=== PATIENT | female | born 1945 | race Caucasian/White ===

== ENCOUNTER → 2017-04-22 | Outpatient (CLI) | payer MEDICARE, BC ==
[2017-04-22 10:55] LABS: Appearance,Urine Clear (Clear); Bacteria,Urine Rare /hpf; Bilirubin,Urine Negative (Negative); Blood,Urine Trace (Negative); Color,Urine Light Yellow; Glucose,Urine (UA) Negative (Negative); Ketones,Urine Negative (Negative); Leukocyte Esterase,Urine Negative (Negative); Mucus,Urine Rare /hpf; Protein,Urine Negative (Negative); RBC,Urine 1 /hpf (0-5); Specific Gravity,Urine 1.005 (1.001-1.035); Urobilinogen,Urine <2.0 mg/dL (<2.0); WBC,Urine <1 /hpf (0-5)
[2017-04-22 11:46] LABS: HCT 36.3 % (34.0-46.0); HGB 11.7 gm/dL (11.4-16.0); MCH 32.4 pg (25.0-35.0); MCHC 32.1 g/dL (31.0-37.0); Macrocytosis Slight; Mean Platelet Volume 7.2; Platelet Count 264 k/uL (150-450); RDW 13.8 % (11.5-15.5); WBC 6.9 k/uL (3.8-10.6)
[2017-04-22 11:53] LABS: Partial Thromboplastin Time 25.6 sec (22.0-30.0)
[2017-04-22 12:20] LABS: ALT 19 U/L (9-52); AST 22 U/L (14-36); Albumin 4.1 g/dL (3.5-5.0); Alkaline Phosphatase 41 U/L (38-126); Anion Gap 9 mmol/L; Blood Urea Nitrogen 16 mg/dL (7-17); Carbon Dioxide 30 mmol/L (22-30); Chloride 102 mmol/L (98-107); Glucose 84 mg/dL (74-99); Sodium 141 mmol/L (137-145); Total Bilirubin 0.5 mg/dL (0.2-1.3); Total Protein 7.1 g/dL (6.3-8.2)
== END | disposition home or self-care (01) ==
LOC: LABPAT 10:06
PROVIDERS: ATTEND Orthopaedic Surgery
DX: Z01.812 Encounter for preprocedural laboratory examination (principal); Z79.01 Long term (current) use of anticoagulants
CPT/HCPCS: 80053; 81001; 85027; 85610; 85730; 87070

== ENCOUNTER 2017-05-09 05:46 | Inpatient (IN) | payer MEDICARE, BC ==
[2017-04-29 08:47] VITALS: BMI 23.1
[~2017-05-09 05:46] MED LIST: ACETAMINOPHEN TAB 500 MG TAB PO ONE; DEXAMETHASONE SOD PHOSPHATE 10 MG/ML 1 ML VIAL IV ONE; HYDROmorphone 0.5 MG/0.5 ML SYRINGE IVP PRN; LACTATED RINGERS 1,000 ML IV SCH; MELOXICAM 7.5 MG TAB PO ONE; MIDAZOLAM 2 MG/2 ML VIAL IV PRN; ONDANSETRON 4 MG/2 ML VIAL IVP ONE; ROPIVACAINE 246.25 MG, EPINEPHrine 0.5 MG, KETOROLAC 30 MG, cloNIDine HCL/PF 80 MCG, WA... MISCELLANE ONE; TRANEXAMIC ACID 1,000 MG in SODIUM CHLORIDE 0.9% 50 ML IVPB ONE; ceFAZolin IN SWFI 2 GM/20 ML SYRINGE IVP ONE
[2017-05-09] MEDS ORDERED: LIDOCAINE 1% 20 ML VIAL (10MG/ML) FOR IV START INTRADERMA ONE (07:01)
[2017-05-09] MEDS ORDERED: fentaNYL (PF) 50 MCG/ML 2 ML AMP ONE ×2 (07:03→07:30)
[2017-05-09] MEDS ORDERED: MAGNESIUM HYDROXIDE 2,400 MG/10 ML CUP PO PRN (07:28)
[2017-05-09] MEDS ORDERED: BISACODYL 10 MG SUPP RECTAL PRN (07:28)
[2017-05-09] MEDS ORDERED: NALOXONE 0.4 MG/ML 1 ML VIAL IV PRN (07:28)
[2017-05-09] MEDS ORDERED: ONDANSETRON 4 MG/2 ML VIAL IVP PRN (07:28)
[2017-05-09] MEDS ORDERED: HYDROmorphone 1 MG/ML 1 ML SYRINGE IVP PRN (07:28)
[2017-05-09] MEDS ORDERED: HYDROcodone/APAP 7.5-325MG 1 EACH TAB PO PRN (07:28)
[2017-05-09] MEDS ORDERED: HYDROmorphone 0.5 MG/0.5 ML SYRINGE IVP PRN ×3 (07:28)
[2017-05-09] MEDS ORDERED: NA PHOS,M-B/NA PHOS,DI-BA 133 ML ENEMA RECTAL PRN (07:28)
[2017-05-09] MEDS ORDERED: DIAZEPAM 5 MG TAB PO PRN ×2 (07:28)
[2017-05-09] MEDS ORDERED: LIDOCAINE 1% INJ 10MG/ML (20 ML MDV) ONE (07:30)
[2017-05-09] MEDS ORDERED: SODIUM CHLORIDE 0.9% 100 ML BAG ONE (07:30)
[2017-05-09] MEDS ORDERED: TRANEXAMIC ACID 1,000 MG/10 ML VIAL ONE (07:30)
[2017-05-09] MEDS ORDERED: PROPOFOL 10 MG/ML 20 ML VIAL IV ONE (07:30)
[2017-05-09] MEDS ORDERED: MIDAZOLAM 2 MG/2 ML VIAL ONE (07:30)
[2017-05-09] MEDS ORDERED: ROPIVACAINE 1,100 MG, SODIUM CHLORIDE 0.9% 330 ML MISCELLANE PRN ×2 (07:54)
--- NOTE | 2017-05-09 07:59 | P.ONQ ---
Anesthesiology Proc Note - PNB - Peripheral Nerve Block Performed Right Adductor Canal Infusion Time Out Performed: Yes Procedure Start Time: 07:09 Indication: Acute Post-Operative Pain, Analgesia Specifically requested for management of pain by DrMaxi: Rick Umana Sedation Type: Sedate with meaningful contact maintained Preparation: Sterile Prep Position: Supine Catheter Depth at Skin (cm): 5 Catheter: Indwelling Needle Types: Other (see comment) (Pajunk) Needle Size: 100mm (4") Needle Gauge: 18 Technique: Ultrasound Injectate: 0.5% Ropivacaine (see comment for volume) (20cc) Blood Aspirated: Yes Pain Paresthesia on Injection Noted: No Resistance on Injection: Normal Events: Other (see comment) (Blood aspirated on initial injection attempt. Catheter repositioned and subsequent injection of ropivicaine was uneventful.)
[2017-05-09] MEDS ORDERED: ceFAZolin 3,000 MG in SODIUM CHLORIDE 0.9% IRRIGATIO 3,000 ML IRRIGATION ONE (08:04)
--- NOTE | 2017-05-09 08:59 | P.OP ---
Date of Procedure: 05/09/17 Preoperative Diagnosis: Severe osteoarthritis right knee Postoperative Diagnosis: Severe osteoarthritis right knee Procedure(s) Performed: Right total knee arthroplasty Implants: [employer]owitz [employer]hew Oxinium femoral component size 5, right Horowitz [employer] Nephew Zo II right nonporous tibial baseplate size 4 Horowitz [employer] Nephew size 13 mm Legion XLPE dished articular insert, size 3-4 Horowitz [employer] Nephew Zo II resurfacing patellar component, 29 mm All components were cemented using Jose Armando bone cement.. The articulation is Oxinium on polyethylene. Anesthesia: spinal Surgeon: Rick Umana Jewelry Drilling Machine Operator #1: Brittni Chao Estimated Blood Loss (ml): 50 Pathology: other (Bone and cartilage) Condition: stable Disposition: PACU Indications for Procedure: After failure of conservative treatment we discussed the surgical and nonsurgical treatment options at length. Patient wishes to proceed with a total knee arthroplasty. Complications specific to this procedure were discussed at length, including but not limited to infection, bleeding, stiffness , and nerve injury. Patient is aware of all these complications and informed consent was obtained Operative Findings: The operative findings are consistent with severe osteoarthritis of the right knee Description of Procedure: Patient was seen in the preoperative area consent was reviewed and operative site was marked with a skin marker. An adductor canal pain catheter was placed by anesthesia in the preoperative area. Patient was then brought to the operating room and given preoperative antibiotics intravenously. A spinal anesthetic was administered by the anesthesia department. A tourniquet was placed on the upper thigh and the lower extremity was prepped and draped in usual sterile fashion. A gram of transexamic acid was given. A universal timeout was then performed which confirmed the patient's name, surgical site, ALLERGIES, and consent. The lower extremity was then exsanguinated and tourniquet was inflated to 250 mmHg. A standard and anterior midline approach to the knee was performed. The skin and subcutaneous tissue was dissected down to the patellar tendon. A medial parapatellar arthrotomy was then performed. The knee was then extended, the patellar was everted, and the knee was again flexed. Anterior horns of both menisci were excised, and a release was performed to the posterior medial aspect of the knee. On gross visual inspection, there was complete loss of articular cartilage in the medial and patellofemoral joint spaces. There was also significant cartilage damage in the lateral compartment. There were multiple periarticular osteophytes which were then removed with a Ronguer. The femoral canal was then opened with the appropriate drill, and the intramedullary femoral cutting guide was then placed and set for 4 of valgus. The distal femoral cutting block was then pinned in place, and the distal femur was then cut. The cutting block was then removed and the cut was checked for flatness. Next, the sizing guide was then placed and set for 3 external rotation based off of the epicondylar axis and Whitesides line. After the femur was sized, the appropriate 4-in-1 cutting block was then pinned in place. The anterior condyles were cut without notching. The posterior and chamfer cuts were performed while protecting the collateral ligaments. The cutting block was then removed, and the femoral canal was plugged with autologous bone. Attention was then directed to the tibia. The remaining ACL was removed with a Ronguer, and the tibia was then gently subluxed forward with a large bent knee retractor. Any remaining menisci was excised. The posterior lateral corner was cauterized in order to cauterize the lateral geniculate artery. The extra medullary tibial cutting guide was then placed, set for the appropriate rotation , slope, and depth of resection. The proximal tibia cutting guide was then pinned in place. Proximal tibia was then cut and sized. Next trials were then placed with the appropriate-sized insert. The knee was able to fully extend and flex to 130 and was stable throughout all range of motion. The knee was then extended, patella everted. Patella was then measured, and then using an osteotomy guide, the patella was cut at the appropriate level. The patella was then measured and drilled and the patella trial was then placed. The knee was then taken through range of motion with the patella trial and the patella tracked normally. The knee was then extended patella trial was then removed and the patella was everted. Knee was then flexed and lug holes were drilled through the femoral trial and the femoral trial was then removed. The tibial was then exposed, and the tibial broach guide was then pinned in place after it was set for the appropriate rotation to allow for the most coverage without overhang. The tibia was then reamed and broached. The cut surfaces of bone were then irrigated with pulsatile lavage. The posterior structures were injected with the ropivacaine solution. The knee was also irrigated with Irrisept solution. The components were then opened, the cement was mixed, and the components were then cemented in place. The cement was allowed to harden with the knee in full extension. While the cement was hardening, the remaining soft tissues were then injected with a ropivacaine solution, which consisted of 246.25 mg of ropivacaine, 0.5 mg of epinephrine, 30 mg of Toradol, 80 g of clonidine, and 48.45 mL of sterile water, for a total of 100 mL of fluid injected. After the cemented hardened. The tourniquet was released, and hemostasis was obtained. A second gram of transexamic acid was given. The knee was again irrigated. The knee was again taken through range of motion and found to be stable throughout all range of motion of 0-130 , and the patella tracked normally. The fascia was then closed with #2 strata fix suture. The subcutaneous tissue was closed with 3-0 Vicryl and 3-0 strata fix. Dermabond glue was used for the skin and placed with the knee in flexion. The patient was placed in a sterile silver dressing. Patient was then transferred to recovery room in stable condition. The hotel assistant manager MAGGIE Fernandez was required due the complexity surgery and the need for a skilled surgical clinical reviewer. She assisted in positioning, draping, retraction, and closure of the wound.
[2017-05-09] MEDS ORDERED: LACTATED RINGERS 1,000 ML IV ONE (09:16)
[2017-05-09] MEDS ORDERED: fentaNYL (PF) 50 MCG/ML 2 ML AMP IVP ONE (09:49)
--- NOTE | 2017-05-09 09:50 | XR ---
EXAMINATION TYPE: XR knee limited RT DATE OF EXAM: 05/09/2017 COMPARISON: 11/03/2015 HISTORY: 71-year-old female evaluation for postoperative abnormality and alignment TECHNIQUE: 2 views FINDINGS: Images show placement of right total knee arthroplasty. 2 distal femoral and proximal tibial componen ts of the prosthesis appear well seated without periprosthetic fracture. Alignment grossly anatomic. Anterior soft tissue swelling with soft tissue air, intra-articular air, a joint effusion. IMPRESSION: Uncomplicated postoperative appearance right total knee arthroplasty.
[2017-05-09] MEDS ORDERED: SUMAtriptan SUCCINATE 25 MG TAB PO PRN (11:34)
--- NOTE | 2017-05-09 11:45 | P.CONS ---
History of Present Illness - Reason for Consult Consult date: 05/09/17 rheumatoid arthritis Requesting physician: Rick Umana - Chief Complaint knee pain - History of Present Illness Patient is a 71-year-old female with a past medical history of osteoarthritis, rheumatoid arthritis, and fibromyalgia who presented for an elective right total knee arthroplasty. She underwent procedure on the morning of 05/09 Dr. Umana. She had no immediate postoperative complications. She states that she has been suffering with arthritis for years. She has tried conservative therapy with injections. She has also takes methotrexate for her rheumatoid arthritis. She was no longer able to walk greater than 10 feet without significant pain so she decided to proceed with total knee arthroplasty. She stopped her methotrexate 2 weeks ago. She's had no recent cough, cold, fevers, or flus. She does take Requip at night for restless leg syndrome. She is on otherwise been in her normal state of health. She denies any postoperative nausea, vomiting, chest pain, shortness of breath, or syncope. She does feel that off after surgery. She plans on going home with home health therapy. Review of Systems General: no fever/chills, no rigors, no weight loss/weight gain, no unusual fatigue Eyes: no noticeable visual changes, no loss of vision ENT: no rhinorrhea, no congestion, no sore throat Cardiovascular: no chest pain, no palpitations, no preyncope/syncope, no edema Pulmonary: no shortness of breath, no wheezing, no cough Abdominal: no abdominal pain, no constipation, no diarrhea, no vomiting, no nausea Genitourinary: no dysuria, no urinary frequency, no unusual discharge/odor Neuro: no unusual paresthesias, no unusual paresis/paralysis, no headache Dermatologic: no unusual rashes, no unusual lesions, no unusual changes in nails Hematologic: no hemoptysis, no hematuria, no melena/hematochezia Psychiatric: no changes in mood or behaviors, no changes in sleep pattern Musculoskeletal: +knee pain Past Medical History Past Medical History: Fibromyalgia, Osteoarthritis (OA), Rheumatoid Arthritis ( RA) Additional Past Medical History / Comment(s): migraines, varicose veins, Restless leg syndrome History of Any Multi-Drug Resistant Organisms: None Reported Past Surgical History: Appendectomy, Back Surgery, Section, Cholecystectomy, Hysterectomy, Joint Replacement Additional Past Surgical History / Comment(s): left hip replacement, laminectomy , Right salivary gland removed, Past Anesthesia/Blood Transfusion Reactions: No Reported Reaction Smoking Status: Never smoker Past Alcohol Use History: None Reported Additional History: Lives with and son, no assistive devices. - Past Family History Mother Family Medical History: No Reported History Additional Family Medical History / Comment(s): denies and family history of heart attack or smoke Medications and Allergies Home Medications Medication Instructions Recorded Confirmed Type Methotrexate Sodium [Methotrexate] 20 mg PO FR 11/03/15 05/09/17 History Estradiol [Estrace] 1 mg PO MOWEFR 04/29/17 05/09/17 History Folic Acid 1 mg PO DAILY 04/29/17 05/09/17 History Hydrocodone/Acetaminophen [[place] 1 tab PO TID PRN 04/29/17 05/09/17 History 10-325] SUMAtriptan SUCCINATE [Imitrex] 25 mg PO BID PRN 04/29/17 05/09/17 History rOPINIRole HCL [Requip] 0.5 mg PO HS 04/29/17 05/09/17 History Allergies Allergy/AdvReac Type Severity Reaction Status Date / Time Sulfa (Sulfonamide Allergy Rash/Hives Verified 05/09/17 11:07 Antibiotics) codeine AdvReac Nausea & Verified 05/09/17 11:07 Vomiting morphine AdvReac Nausea & Verified 05/09/17 11:07 Vomiting Physical Exam Osteopathic Statement: *. No significant issues noted on an osteopathic structural exam other than those noted in the History and Physical/Consult. Vitals: Vital Signs Temp Pulse Resp BP Pulse Ox 05/09/17 10:01 63 14 128/65 100 05/09/17 09:46 63 14 151/63 98 05/09/17 09:31 73 16 127/70 100 05/09/17 09:16 97.0 F L 76 16 118/56 98 05/09/17 07:25 83 16 167/71 99 05/09/17 06:24 97.9 F 73 16 172/73 99 Intake and Output 05/08/17 05/09/17 05/09/17 22:59 06:59 14:59 Intake Total 1151 Output Total 50 Balance 1101 Intake: IV 1151 Output: Estimated Blood Loss 50 General: non toxic, no distress, appears at stated age, normal weight Derm: no unusual rashes/lesions no unusual ecchymoses, warm, dry Head: atraumatic, normocephalic, symmetric Eyes: EOMI, no lid lag, anicteric sclera, pupils equal round reactive to light ENT: Nose and ears atraumatic, no thrush, no pharyngeal erythema Neck: No thyromegaly, no cervical lymphadenopathy, trachea midline, supple Mouth: no lip lesion, mucus membranes moist Cardiovascular: S1S2 reg, no murmur, positive posterior tibial pulse bilateral, no edema, capillary refill less than 2 seconds Lungs: CTA bilateral, no rhonchi, no rales , no accessory muscle use Abdominal: soft, nontender to palpation, no guarding, no appreciable organomegaly, normal bowel sounds Ext: no gross muscle atrophy, muscle strength 5 out of 5 in upper extremities 4 extremities grossly, no contractures, Neuro: CN II-XI grossly intact, light touch intact all 4 extremities, finger to nose within normal limits, Psych: Alert, oriented, appropriate affect Results Labs: Preoperative labs reviewed from 04/22/17. Hemoglobin was 11.7. Hematocrit 36.3. Sodium 141. BUN 16. Creatinine 0.8. AST 22. ALT 19. Assessment and Plan Assessment: S/P R TKA - Pain control and DVT prophylaxis per otho - will check BMP in AM with multiple meds and K+ 5 on outpatient lab - follow-up CBC in AM hx of blood transfusion with ALEXANDER in the past, may have stunted bone marrow response due to custodial methotrexate. if HgB low post op will start oral iron therapy. - plans on home with home health Osteo-and rheumatoid arthritis -Has been off methotrexate for approximately 2 weeks and folic acid -Pain management with [place], and Mobic Restless leg syndrome - Resume requip Migrane headache - Imitrex as needed Fibromyalgia - pain control - maintain mobility as able Thank you for Allowing us to participate in the care of this pleasant patient. Please do not hesitate to contact us with questions. 7am-7pm [phone] and 7pm-7am [phone]
[2017-05-09] MEDS: MELOXICAM 7.5 MG TAB PO SCH (11:46)
[2017-05-09] MEDS: HYDROcodone/APAP 7.5-325MG 1 EACH TAB PO PRN ×2 (11:49→17:02)
[2017-05-09] MEDS: SODIUM CHLORIDE 0.9% 1,000 ML IV SCH (11:49)
[2017-05-09] MEDS: hydrOXYzine PAMOATE 25 MG CAP PO PRN ×2 (11:52→17:03)
[2017-05-09] MEDS: ceFAZolin IN SWFI 2 GM/20 ML SYRINGE IVP SCH (16:52)
[2017-05-09] MEDS ORDERED: SENNOSIDES-DOCUSATE SODIUM 1 EACH TAB PO SCH (21:00)
[2017-05-09] MEDS: ASPIRIN 325 MG TAB PO SCH (22:03)
[2017-05-10] MEDS: HYDROcodone/APAP 7.5-325MG 1 EACH TAB PO PRN ×2 (00:50→06:16)
[2017-05-10] MEDS: ceFAZolin IN SWFI 2 GM/20 ML SYRINGE IVP SCH (00:52)
[2017-05-10] MEDS: SODIUM CHLORIDE 0.9% 1,000 ML IV SCH ×2 (00:53→10:43)
[2017-05-10 02:10] VITALS: PULSE 77
[2017-05-10] MEDS: hydrOXYzine PAMOATE 25 MG CAP PO PRN (06:16)
[2017-05-10 07:20] VITALS: BP 110/57; RESP 16; TEMP 97.4
[2017-05-10 08:16] LABS: Anion Gap 7 mmol/L; Blood Urea Nitrogen 12 mg/dL (7-17); Calcium 8.5 mg/dL (8.4-10.2); Carbon Dioxide 25 mmol/L (22-30); Chloride 107 mmol/L (98-107); Glucose 107 mg/dL (74-99); Potassium 3.9 mmol/L (3.5-5.1); Sodium 139 mmol/L (137-145)
[2017-05-10 08:45] LABS: Basophils % (A) 0 %; Eosinophils % (A) 1 %; HCT 29.8 % (34.0-46.0); Lymphocytes # (A) 1.2 k/uL (1.0-4.8); Lymphocytes % (A) 14 %; MCH 30.8 pg (25.0-35.0); MCHC 31.5 g/dL (31.0-37.0); MCV 97.9 fL (80.0-100.0); Mean Platelet Volume 7.8; Monocytes # (A) 0.6 k/uL (0-1.0); Monocytes % (A) 7 %; Neutrophils # (A) 6.1 k/uL (1.3-7.7); Neutrophils % (A) 76 %; Platelet Count 210 k/uL (150-450); RBC 3.04 m/uL (3.80-5.40); RDW 13.8 % (11.5-15.5); WBC 7.9 k/uL (3.8-10.6)
[2017-05-10 09:09] LABS: HGB 9.4 gm/dL (11.4-16.0)
[2017-05-10] MEDS: ASPIRIN 325 MG TAB PO SCH (09:22)
[2017-05-10] MEDS: MELOXICAM 7.5 MG TAB PO SCH (09:22)
--- NOTE | 2017-05-10 09:30 | P.DS ---
Providers Date of admission: 05/09/17 05:46 Expected date of discharge: 05/10/17 Attending physician: Rick Umana Consults: 05/09/17 07:28 Consult Physician Routine Consulting Provider: Wendy Stuart Consult Reason/Comments: medical management Do you want consulting provider notified?: Yes Primary care physician: Lorenzo Aguiar - Discharge Diagnosis(es) (1) Primary osteoarthritis of right knee Current Visit: Yes Status: Acute (2) S/P total knee arthroplasty Current Visit: Yes Status: Acute Hospital Course: This is a 71-year-old female with known history of degenerative arthritis of the right knee. The patient presents for evaluation. After discussion and consideration patient elects to proceed with total knee arthroplasty. The patient is seen preoperatively by Dr. Umana and medically cleared for surgery by their primary care physician. Patient is admitted to [facility] on 05/09/2017 for total knee arthroplasty. The procedures performed without complication or sequelae. The patient is doing well postoperatively. Labs and vital signs are stable on day of discharge. On day of discharge patient's knee incision is healing well. There is minimal erythema. There is minimal drainage noted at this time. There is minimal soft tissue swelling to the knee. Patient has full foot and ankle motion without difficulty or pain. Neurovascular status to the right lower extremity is intact. Patient is discharged home in good condition. Please see med rec for accurate list of home medications. Plan - Discharge Summary Discharge Rx Participant: No New Discharge Prescriptions: New Aspirin 325 mg PO BID #60 tab HYDROcodone/APAP 7.5-325MG [[place] 7.5-325] 1 - 2 tab PO Q4-6H PRN #60 tab PRN Reason: Pain Sennosides [Senokot] 1 tab PO BID #60 tablet No Action Methotrexate Sodium [Methotrexate] 20 mg PO FR rOPINIRole HCL [Requip] 0.5 mg PO HS SUMAtriptan SUCCINATE [Imitrex] 25 mg PO BID PRN PRN Reason: migraines Folic Acid 1 mg PO DAILY Estradiol [Estrace] 1 mg PO MOWE Hydrocodone/Acetaminophen [[place] 10-325] 1 tab PO TID PRN PRN Reason: Pain Discharge Medication List Methotrexate Sodium [Methotrexate] 20 mg PO FR 11/03/15 [History] Estradiol [Estrace] 1 mg PO MOWEFR 04/29/17 [History] Folic Acid 1 mg PO DAILY 04/29/17 [History] Hydrocodone/Acetaminophen [[place] 10-325] 1 tab PO TID PRN 04/29/17 [History] SUMAtriptan SUCCINATE [Imitrex] 25 mg PO BID PRN 04/29/17 [History] rOPINIRole HCL [Requip] 0.5 mg PO HS 04/29/17 [History] Aspirin 325 mg PO BID #60 tab 05/10/17 [Rx] HYDROcodone/APAP 7.5-325MG [[place] 7.5-325] 1 - 2 tab PO Q4-6H PRN #60 tab [Rx] Sennosides [Senokot] 1 tab PO BID #60 tablet 05/10/17 [Rx] Follow up Appointment(s)/Referral(s): Rick Umana DO [Doctor of Osteopathic Medicine] - 2 Weeks Ambulatory/Diagnostic Orders: Continuous Passive Motion (CPM) Machine [DME.AMB1] Time Frame: 3 Weeks, Location : Determined By Patient Activity/Diet/Wound Care/Special Instructions: Weightbearing as tolerated with a walker CPM 5-6h daily Leave dressing intact. May be removed by home care nurse in 10-14 days. May shower with dressing on. [facility] with questions or concerns [phone] Discharge Disposition: HOME WITH HOME HEALTH SERVICES
[2017-05-10] MEDS ORDERED: HYDROcodone/APAP 10-325MG 1 EACH TAB PO PRN ×2 (09:33)
--- NOTE | 2017-05-10 11:02 | P.PN ---
Subjective Progress Note Date: 05/10/17 (delayed charting patient seen at 0900) Principal diagnosis: Patient is a 71-year-old female with a past medical history of osteoarthritis, rheumatoid arthritis, and fibromyalgia who presented for an elective right total knee arthroplasty. She underwent procedure on the morning of 05/09 Dr. Umana. She had no immediate postoperative complications. Patient seen and examined at bedside. She denies chest pain, SOB, nausea, or vomiting. States that medications are working well. Excited to go home. No other complaints currently. Follows with Dr. Aguiar. Objective - Vital Signs Vital signs: Vital Signs Temp 97.4 F L 05/10/17 07:20 Pulse 77 05/10/17 07:20 Resp 16 05/10/17 07:21 BP 110/57 05/10/17 07:20 Pulse Ox 97 05/10/17 07:20 Intake & Output 05/09/17 05/10/17 05/10/17 18:59 06:59 18:59 Intake Total 1911 180 Output Total 50 Balance 1861 180 Weight 61.235 kg Intake: IV 1151 Intake, IV Titration 260 Amount Sodium Chloride 0.9% 1, 260 000 ml @ 65 mls/hr IV . [id number] BOOKER Rx#:[id number] Oral 500 180 Output: Estimated Blood Loss 50 Other: Voiding Method Toilet # Voids 1 1 - Exam General: non toxic, mild distress due to pain, appears at stated age Derm: warm, dry Head: atraumatic, normocephalic, symmetric Eyes: EOMI, no lid lag, anicteric sclera Mouth: no lip lesion, mucus membranes moist Cardiovascular: S1S2 reg, no murmur, positive posterior tibial pulse bilateral, Lungs: CTA bilateral, no rhonchi, no rales , no accessory muscle use Abdominal: soft, nontender to palpation, no guarding, no appreciable organomegaly Psych: Alert, oriented, appropriate affect - Labs CBC & Chem 7: 05/10/17 07:29 05/10/17 07:29 Labs: Abnormal Lab Results - Last 24 Hours (Table) 05/10/17 05/10/17 Range/Units 07:29 07:29 RBC 3.04 L (3.80-5.40) m/uL Hgb 9.4 L D (11.4-16.0) gm/dL Hct 29.8 L (34.0-46.0) % Glucose 107 H (74-99) mg/dL Assessment and Plan Assessment: Anticipated acute blood loss anemia - Ferrous sulfate for 30 days - follow-up CBC when seen by Dr. Aguiar S/P R TKA - Pain control and DVT prophylaxis per otho Osteo-and rheumatoid arthritis -Has been off methotrexate for approximately 2 weeks and folic acid -Pain management with [place], and Mobic Restless leg syndrome - Resume requip Migrane headache - Imitrex as needed Fibromyalgia - pain control - maintain mobility as able Thank you for Allowing us to participate in the care of this pleasant patient. Please do not hesitate to contact us with questions. 7am-7pm [phone] and 7pm-7am [phone]
--- NOTE | 2017-05-10 13:23 | P.PN ---
Progress Note - Text 05/10 71-year-old female status post total knee replacement. Postop day 1 patient seen and evaluated for pain control, On-Q pump solution running at 8 mL an hour. VAS of 4 patient looked very comfortable. Plan to continue On-Q pump infusion
== END 2017-05-10 14:20 | disposition home health service (06) | DRG 470 ==
LOC: 2ORMAIN 05:46 → 3SUR 10:56
PROVIDERS: ADMIT Orthopaedic Surgery; ATTEND Orthopaedic Surgery
PROC: 0SRC069 Replacement of Right Knee Joint with Oxidized Zirconium on Polyethylene Synthetic Substitute, Cemented, Open Approach (ICD-10-PCS; principal; 2017-05-09 07:30)
DX: M17.11 Unilateral primary osteoarthritis, right knee (principal); M06.9 Rheumatoid arthritis, unspecified; D62 Acute posthemorrhagic anemia; G25.81 Restless legs syndrome; Z79.899 Other long term (current) drug therapy; Z88.2 Allergy status to sulfonamides; Z88.5 Allergy status to narcotic agent; M79.7 Fibromyalgia; Z79.891 Long term (current) use of opiate analgesic; Z96.642 Presence of left artificial hip joint; Z90.710 Acquired absence of both cervix and uterus
CPT/HCPCS: 80048; 85025; 88300

== ENCOUNTER → 2019-01-11 | Outpatient (CLI) | payer MEDICARE, BC ==
[2019-01-11 14:01] LABS: HCT 38.5 % (34.0-46.0); HGB 12.5 gm/dL (11.4-16.0); MCHC 32.4 g/dL (31.0-37.0); MCV 98.7 fL (80.0-100.0); Mean Platelet Volume 6.7; Platelet Count 284 k/uL (150-450); RDW 14.1 % (11.5-15.5); WBC 6.2 k/uL (3.8-10.6)
[2019-01-11 14:07] LABS: ALT 19 U/L (9-52); AST 24 U/L (14-36); African American GFR (CKD) >90 (>60 ml/min/1.73 sqM); Albumin 4.4 g/dL (3.5-5.0); Alkaline Phosphatase 51 U/L (38-126); Anion Gap 7 mmol/L; Blood Urea Nitrogen 15 mg/dL (7-17); Calcium 9.6 mg/dL (8.4-10.2); Carbon Dioxide 28 mmol/L (22-30); Chloride 105 mmol/L (98-107); Glucose 79 mg/dL (74-99); INR 0.9 (<1.2); Partial Thromboplastin Time 27.4 sec (22.0-30.0); Potassium 5.1 mmol/L (3.5-5.1); Prothrombin Time 9.8 sec (9.0-12.0); Sodium 140 mmol/L (137-145); Total Bilirubin 0.4 mg/dL (0.2-1.3); Total Protein 7.7 g/dL (6.3-8.2)
[2019-01-11 14:37] LABS: Amorphous Sediment,Urine Rare /hpf; Appearance,Urine Clear (Clear); Bacteria,Urine Moderate /hpf; Bilirubin,Urine Negative (Negative); Blood,Urine Small (Negative); Color,Urine Light Yellow; Glucose,Urine (UA) Negative (Negative); Ketones,Urine Negative (Negative); Leukocyte Esterase,Urine Negative (Negative); Mucus,Urine Rare /hpf; Nitrite,Urine Negative (Negative); PH, Urine 5.5 (5.0-8.0); Protein,Urine Negative (Negative); RBC,Urine 1 /hpf (0-5); Specific Gravity,Urine 1.005 (1.001-1.035); Squamous Epithelial Cell,Urine <1 /hpf (0-4); Urobilinogen,Urine <2.0 mg/dL (<2.0); WBC,Urine 1 /hpf (0-5)
== END | disposition home or self-care (01) ==
LOC: LABPAT 10:59
PROVIDERS: ATTEND Orthopaedic Surgery
DX: Z01.812 Encounter for preprocedural laboratory examination (principal); M16.11 Unilateral primary osteoarthritis, right hip
CPT/HCPCS: 36415; 80053; 81001; 85027; 85610; 85730; 87070

== ENCOUNTER 2019-01-22 05:46 | Inpatient (IN) | payer MEDICARE, BC ==
[~2019-01-22 05:46] MED LIST changes: +GABAPENTIN 300 MG CAP PO ONE; -HYDROmorphone 0.5 MG/0.5 ML SYRINGE IVP PRN; -LACTATED RINGERS 1,000 ML IV SCH; -ROPIVACAINE 246.25 MG, EPINEPHrine 0.5 MG, KETOROLAC 30 MG, cloNIDine HCL/PF 80 MCG, WA... MISCELLANE ONE; +TRANEXAMIC ACID 1,000 MG in SODIUM CHLORIDE 0.9% 100 ML IVPB ONE; -TRANEXAMIC ACID 1,000 MG in SODIUM CHLORIDE 0.9% 50 ML IVPB ONE; -ceFAZolin IN SWFI 2 GM/20 ML SYRINGE IVP ONE; +fentaNYL (PF) 50 MCG/ML 2 ML AMP IV PRN
[2019-01-22] MEDS ORDERED: ROPIVACAINE 246.25 MG, EPINEPHrine 0.5 MG, KETOROLAC 30 MG, cloNIDine HCL/PF 80 MCG, WA... MISCELLANE ONE ×5 (06:00)
[2019-01-22] MEDS: LACTATED RINGERS 1,000 ML IV SCH ×2 (06:22→23:02)
[2019-01-22] MEDS ORDERED: LIDOCAINE 1% 20 ML VIAL (10MG/ML) FOR IV START INTRADERMA ONE (06:30)
[2019-01-22] MEDS ORDERED: PROPOFOL 10 MG/ML 20 ML VIAL IV ONE (06:53)
[2019-01-22] MEDS ORDERED: fentaNYL (PF) 50 MCG/ML 2 ML AMP ONE (06:53)
[2019-01-22] MEDS ORDERED: TRANEXAMIC ACID 1,000 MG/10 ML VIAL ONE (06:53)
[2019-01-22] MEDS ORDERED: MIDAZOLAM 2 MG/2 ML VIAL ONE (06:53)
[2019-01-22] MEDS ORDERED: SODIUM CHLORIDE 0.9% IRRIG 1,000 ML BTL IRRIGATION ONE (06:53)
[2019-01-22] MEDS ORDERED: SODIUM CHLORIDE 0.9% 100 ML BAG ONE (06:53)
[2019-01-22] MEDS ORDERED: PHENYLEPHRINE-0.9% NACL SYG 1 MG/10 ML SYRINGE ONE (06:53)
[2019-01-22] MEDS ORDERED: HEPARIN SODIUM,PORCINE 10,000 UNIT/ML 1 ML VIAL ONE (06:53)
[2019-01-22] MEDS ORDERED: ceFAZolin 3,000 MG in SODIUM CHLORIDE 0.9% IRRIGATIO 3,000 ML IRRIGATION ONE (06:58)
[2019-01-22] MEDS ORDERED: HYDROmorphone 0.5 MG/0.5 ML SYRINGE IVP PRN ×3 (06:59)
[2019-01-22] MEDS ORDERED: NALOXONE 0.4 MG/ML 1 ML VIAL IV PRN (06:59)
[2019-01-22] MEDS ORDERED: MAGNESIUM HYDROXIDE 2,400 MG/10 ML CUP PO PRN (06:59)
[2019-01-22] MEDS ORDERED: ONDANSETRON 4 MG/2 ML VIAL IVP PRN (06:59)
[2019-01-22] MEDS ORDERED: HYDROcodone/APAP 5-325MG 1 EACH TAB PO PRN (06:59)
[2019-01-22] MEDS ORDERED: hydrOXYzine PAMOATE 25 MG CAP PO PRN (06:59)
[2019-01-22] MEDS ORDERED: DIAZEPAM 5 MG TAB PO PRN (06:59)
--- NOTE | 2019-01-22 08:30 | P.OP ---
Date of Procedure: 01/22/19 Preoperative Diagnosis: Severe osteoarthritis right hip Postoperative Diagnosis: Severe osteoarthritis right hip Procedure(s) Performed: Right total hip arthroplasty with a direct anterior approach Implants: Horowitz and nephew Polarstem size 3 standard [employer]owitz [employer] Nephew R3, 3 hole acetabular shell, 48 mm [employer]hew reflection 6.5 mm cancellus screw, 20 mm 2 [employer]owitz [employer]hew R3, XLPE 20 acetabular liner [employer]owitz [employer]hew Oxinium femoral head 32 m, +0 All components were press-fit. The articulation is Oxinium on polyethylene. Anesthesia: spinal Surgeon: Rick Umana Tip Inserter #1: Brittni Chao Estimated Blood Loss (ml): 200 (66 mL returned with Cell Saver) Pathology: other (Femoral head) Condition: stable Disposition: PACU Indications for Procedure: After failure of conservative treatment we discussed the surgical and nonsurgical treatment options at length. Patient wishes to proceed with a total hip arthroplasty with a direct anterior approach. Complications specific to this procedure were discussed at length, including but not limited to infection, leg length discrepancy, dislocation, and nerve injury. Patient is aware of all these complications and informed consent was obtained Operative Findings: The operative findings are consistent with severe osteoarthritis of the right hip Description of Procedure: Patient was seen and evaluated in the preoperative area, consent was reviewed, and the surgical site was marked with a skin marker. Patient was then brought to the operating room and given prophylactic antibiotics intravenously. 1 g of Tranexamic acid was also given. A spinal anesthetic was administered by the anesthesia department. The patient was then placed on the [place] table with the bony prominences well-padded. The hip area was then prepped and draped in usual sterile fashion. A universal timeout was then performed, which confirmed the patient's name, surgical site, ALLERGIES, and procedure being performed. Next the incision site was located at 1 cm distal and 1 cm lateral to the anterior superior iliac spine. The skin and subcutaneous tissues were sharply incised. Incision was carefully dissected down to the fascia overlying the tensor fascia boy muscle. This fascia was then incised in line with the incision. Next, using blunt finger dissection, the tensor fascia boy muscle was dissected off its investing fascia. The muscle was then carefully retracted laterally with a cobra retractor over the lateral neck of the femur. Next, the circumflex vessels were identified and cauterized using the AquaMantis device. The anterior hip capsule was then exposed. The capsule was then opened and an inverted T fashion. Cobra retractors were then placed intracapsularly. The proximal femur was then visualized. The femoral neck was then osteotomized appropriate level above the lesser trochanter. Small amount of traction was placed with the [place] table. A small wedge of bone was then removed from the remaining femoral head. Next, using a corkscrew femoral head was easily removed from the acetabulum. On gross visual inspection, the femoral head had complete loss of articular cartilage in mu ltiple periarticular osteophytes. Attention was then turned to the acetabulum. the acetabulum was exposed and any remaining labrum was excised. Sequential reaming of the acetabulum was performed using fluoroscopic guidance. When the appropriate size was reached, a trial was then placed. The position and fit of the trial was checked with fluoroscopy. The trial was then removed. Then, using fluoroscopic guidance, the final implant was impacted at 20 of anteversion and 40 of abduction, and fully seated in the acetabulum. 2 screws were then placed in the acetabulum. Again fluoroscopy was used to check position of the screws. Next, the liner was then impacted, with a 20 elevated liner located in the anterior superior quadrant. Component locking was confirmed. Attention was then directed to the femur. With the aid of the [place] table, the femur was externally rotated to approximately 130, extended, and abducted under the opposite leg. A side hook was then placed under the proximal femur, and the side hook elevator was used to elevate the proximal femur. Retractors were then placed. A capsular release was performed, as well as a release of the conjoined tendon, which afforded excellent visualization of the proximal femur. Next, a box osteotome was used to lateralize the proximal femur. A hand clerical verifier was then used to locate the femoral canal. Sequential broaching was then performed with appropriate size which afforded excellent fixation in the proximal femur. A trial was then placed with appropriate head and neck, and the hip was gently reduced with the aid of the [place] table. Fluoroscopy was then used to check position of the components, as well as to ensure equal leg lengths. The hip was then gently dislocated and the trials were then removed. Final implants were then impacted and the hip was again reduced. Final fluoroscopic x-rays confirmed that the components were in anatomic position, as well as equal leg lengths. The hip was also taken through range of motion, and found to be stable. The hip was then copiously irrigated with antibiotic solution with pulsatile lavage. The hip was then irrigated with Irrisept solution. The soft tissues were then injected with a ropivacaine solution, which consisted of 246.25 mg of ropivacaine, 0.5 mg of epinephrine, 30 mg of Toradol, 80 g of clonidine, and 48.45 mL of sterile water, for a total of 100 mL of fluid injected. A second dose of 1 g of Tranexamic acid was also given. the fascia was then closed with 2-0 strata fix suture. The subcutaneous tissue was closed with 3-0 Vicryl. The subcuticular tissue was closed with 3-0 strata fix suture. The skin was then closed with Dermabond glue and a sterile silver dressing. The patient was then transferred to the recovery room in stable co ndition. The assistant professor surgical technology MAGGIE Fernandez was required due to the complexity of surgery, and the need for skilled surgical resident for positioning, draping, exposure, retraction, and closure of the wound.
--- NOTE | 2019-01-22 09:02 | XR ---
EXAMINATION TYPE: XR Hip Limited RT DATE OF EXAM: 01/22/2019 CLINICAL HISTORY: Postoperative evaluation TECHNIQUE: Single portable view of the right hip was submitted. FINDINGS: Noted are changes of total hip arthroplasty with femoral and acetabular components appearin g well seated. Alignment is anatomic. Postsurgical soft tissue changes are evident. IMPRESSION: Satisfactory postoperative alignment
--- NOTE | 2019-01-22 09:03 | FL ---
Fluoroscopy History: rt anterior hip 40 sec fl time used during rt aterior hip 2 images scanned into pacs
[2019-01-22 10:47] VITALS: BMI 25.2
[2019-01-22] MEDS: SODIUM CHLORIDE 0.9% 1,000 ML IV SCH ×2 (11:27→19:10)
--- NOTE | 2019-01-22 12:32 | P.CONS ---
History of Present Illness - Reason for Consult Consult date: 01/22/19 Medical management Requesting physician: Rick Umana - Chief Complaint Consulted for medical management of hypertension and migraines - History of Present Illness The patient is a 73-year-old female with a past medical history of osteoarthritis and rheumatoid arthritis, migraine headaches and is currently admitted under primary orthopedic surgery after having completed a right total hip arthroplasty from direct anterior approach secondary to a history of severe right hip osteoarthritis. The patient is doing well postop she reports pain level at 2, she reports some numbness and tingling in her extremities, she denies any chest pain or shortness of breath. She denies any previous history of smoking, she denies any abdominal pain or nausea. Review of Systems Pertinent positives per HPI all other review of systems otherwise negative Past Medical History Past Medical History: Fibromyalgia, Rheumatoid Arthritis (RA) Additional Past Medical History / Comment(s): migraines, varicose veins, Restless leg syndrome History of Any Multi-Drug Resistant Organisms: None Reported Past Surgical History: Appendectomy, Back Surgery, Section, Cholecystectomy, Hysterectomy, Joint Replacement Additional Past Surgical History / Comment(s): Lt hip replacement, Laminectomy, Right salivary gland removed, Total Rt Knee Past Anesthesia/Blood Transfusion Reactions: No Reported Reaction Smoking Status: Never smoker - Past Family History Mother Family Medical History: No Reported History Additional Family Medical History / Comment(s): denies and family history of heart attack or smoke Medications and Allergies Home Medications Medication Instructions Recorded Confirmed Type Methotrexate Sodium [Methotrexate] 20 mg PO FR 11/03/15 01/22/19 History Estradiol [Estrace] 1 mg PO MOWEFR 04/29/17 01/22/19 History Folic Acid 1 mg PO DAILY 04/29/17 01/22/19 History Hydrocodone/Acetaminophen [[place] 1 tab PO TID PRN 04/29/17 01/22/19 History 10-325] SUMAtriptan SUCCINATE [Imitrex] 25 mg PO BID PRN 04/29/17 01/22/19 History rOPINIRole HCL [Requip] 0.5 mg PO HS 04/29/17 01/22/19 History Allergies Allergy/AdvReac Type Severity Reaction Status Date / Time Sulfa (Sulfonamide Allergy Rash/Hives Verified 01/22/19 06:14 Antibiotics) codeine AdvReac Nausea & Verified 01/22/19 06:14 Vomiting morphine AdvReac Nausea & Verified 01/22/19 06:14 Vomiting Physical Exam Vitals: Vital Signs Temp Pulse Resp BP Pulse Ox 01/22/19 09:15 62 16 115/63 100 01/22/19 09:01 64 16 111/56 100 01/22/19 08:45 66 16 108/62 100 01/22/19 08:37 97.2 F L 65 16 130/62 100 01/22/19 06:20 98 F 90 16 134/64 98 Intake and Output 01/21/19 01/22/19 01/22/19 22:59 06:59 14:59 Intake Total 801 50 Output Total 200 Balance 801 -150 Intake: IV 801 50 Output: Estimated Blood Loss 200 Other: Weight 66.678 kg Constitutional: No acute distress, conversant, pleasant Eyes: Anicteric sclerae, moist conjunctiva, no lid-lag, PERRLA ENMT: NC/AT,Oropharynx clear, no erythema, exudates Neck:Supple, FROM, no masses, or JVD, No carotid bruits; No thyromegaly Lungs: Clear to auscultation, Clear to percussion, Normal respiratory effort, no accessory muscle use Cardiovascular: Heart regular in rate and rhythm, No murmurs, gallops, or rubs no peripheral edema Abdominal: Soft Nontender, nom distended, no guarding, no rebound or rigidity, Normoactive bowel sounds No hepatomegaly, No splenomegaly, No palpable mass No abdominal wall hernia noted Skin: Normal temperature, tone, texture, turgor, No induration No subcutaneous nodules, No rash, lesions, No ulcers Extremities:No digital cyanosis No clubbing, Pedal pulses intact and symmetrical Radial pulses intact and symmetrical Normal gait and station, No calf tenderness Psychiatric: Alert and oriented to person, place and time, Appropriate affect Intact judgement Neuro: Muscles Strength 5/5 in all 4 extremities, Sensation to light touch grossly present throughout, Cranial nerves II-XII grossly intact. No focal sensory deficits Assessment and Plan Assessment: Rheumatoid arthritis * Continue weekly methotrexate * Patient asymptomatic without any acute flares Migraine headaches * Continue Imitrex as needed Restless leg syndrome * Continue Requip Status post right hip arthroplasty * Defer to primary orthopedic service for ongoing pain management Patient is hemodynamically stable at this point we'll continue to follow peripherally until discharge anticipated for tomorrow
[2019-01-22] MEDS: HYDROcodone/APAP 5-325MG 1 EACH TAB PO PRN ×2 (16:57→22:33)
[2019-01-22] MEDS: ASPIRIN 325 MG TAB PO SCH (19:09)
[2019-01-22] MEDS ORDERED: SENNOSIDES-DOCUSATE SODIUM 1 EACH TAB PO SCH (21:00)
[2019-01-22] MEDS ORDERED: SUMAtriptan SUCCINATE 25 MG TAB PO PRN (21:01)
[2019-01-23] MEDS ORDERED: HYDROcodone/APAP 5-325MG 1 EACH TAB ONE (04:15)
[2019-01-23] MEDS: ASPIRIN 325 MG TAB PO SCH (07:51)
[2019-01-23 07:55] VITALS: BP 103/68; PULSE 70; RESP 17; TEMP 97.7
[2019-01-23 07:58] LABS: Basophils % (A) 0 %; Eosinophils % (A) 0 %; HCT 32.3 % (34.0-46.0); HGB 10.6 gm/dL (11.4-16.0); Lymphocytes # (A) 1.2 k/uL (1.0-4.8); Lymphocytes % (A) 16 %; MCH 32.5 pg (25.0-35.0); MCHC 32.8 g/dL (31.0-37.0); Monocytes # (A) 0.4 k/uL (0-1.0); Monocytes % (A) 5 %; Neutrophils # (A) 5.8 k/uL (1.3-7.7); Neutrophils % (A) 77 %; Platelet Count 223 k/uL (150-450); RBC 3.26 m/uL (3.80-5.40); WBC 7.6 k/uL (3.8-10.6)
[2019-01-23] MEDS ORDERED: FOLIC ACID 1 MG TAB PO SCH (09:00)
[2019-01-23] MEDS ORDERED: MELOXICAM 7.5 MG TAB PO SCH (09:00)
--- NOTE | 2019-01-23 09:13 | P.DS ---
Providers Date of admission: 01/22/19 05:46 Expected date of discharge: 01/23/19 Attending physician: Rick Umana Consults: 01/22/19 06:59 Consult Physician Routine Consulting Provider: Joceline Falk Consult Reason/Comments: medical management Do you want consulting provider notified?: Yes Primary care physician: Lorenzo Aguiar - Discharge Diagnosis(es) (1) Osteoarthritis of right hip Current Visit: Yes Status: Acute (2) Status post total hip replacement, right Current Visit: Yes Status: Acute Hospital Course: This is a 73-year-old female with known history of degenerative arthritis of the right hip. The patient presents for evaluation. After discussion and consideration patient elects to proceed with total hip arthroplasty. The patient is seen preoperatively by Dr. Umana and medically cleared for surgery by their primary care physician. Patient is admitted to [facility] on 01/22/2019 for total hip arthroplasty. The procedures performed without complication or sequelae. The patient is doing well postoperatively. Labs and vital signs are stable on day of discharge. On day of discharge patient's hip incision is healing well. There is minimal erythema. There is no drainage noted at this time. There is minimal soft tissue swelling to the hip and thigh. Patient has full foot and ankle motion without difficulty or pain. Calf is soft and nontender to palpation. Neurovascular status to the right lower extremity is intact. Patient is discharged home in good condition. Opioid start talking form is reviewed and signed at patient bedside. Patient receives regular prescriptions for pain medication from her family doctor and will utilize this for postoperative pain management. Please see med rec for accurate list of home medications. Plan - Discharge Summary Discharge Rx Participant: No New Discharge Prescriptions: New Aspirin 325 mg PO BID #60 tab Sennosides [Senokot] 1 tab PO BID #60 tablet No Action Methotrexate Sodium [Methotrexate] 20 mg PO FR rOPINIRole HCL [Requip] 0.5 mg PO HS SUMAtriptan SUCCINATE [Imitrex] 25 mg PO BID PRN PRN Reason: migraines Folic Acid 1 mg PO DAILY Estradiol [Estrace] 1 mg PO MOWE Hydrocodone/Acetaminophen [[place] 10-325] 1 tab PO TID PRN PRN Reason: Pain Discharge Medication List Methotrexate Sodium [Methotrexate] 20 mg PO FR 11/03/15 [History] Estradiol [Estrace] 1 mg PO MOWEFR 04/29/17 [History] Folic Acid 1 mg PO DAILY 04/29/17 [History] Hydrocodone/Acetaminophen [[place] 10-325] 1 tab PO TID PRN 04/29/17 [History] SUMAtriptan SUCCINATE [Imitrex] 25 mg PO BID PRN 04/29/17 [History] rOPINIRole HCL [Requip] 0.5 mg PO HS 04/29/17 [History] Aspirin 325 mg PO BID #60 tab 01/23/19 [Rx] Sennosides [Senokot] 1 tab PO BID #60 tablet 01/23/19 [Rx] Follow up Appointment(s)/Referral(s): [facility], [NON-STAFF] - Rick Umana DO [Doctor of Osteopathic Medicine] - 2 Weeks Activity/Diet/Wound Care/Special Instructions: Weightbearing as tolerated with walker. Leave dressing intact. Dressing may be removed by home care nurse or by patient in 10 days. May shower with dressing on. Recommend use of compression stockings daily for at least 2 weeks during the day to help prevent swelling and blood clots. May remove at night before sleeping. Please follow-up with [facility] in 2 weeks and call with any questions or concerns, . Discharge Disposition: HOME WITH HOME HEALTH SERVICES
[2019-01-23] MEDS: HYDROcodone/APAP 5-325MG 1 EACH TAB PO PRN (12:07)
--- NOTE | 2019-01-23 20:59 | P.PN ---
Subjective Progress Note Date: 01/23/19 (Delayed charting seen at 10 AM) Principal diagnosis: Right hip pain Patient is a 73-year-old female with past medical history of osteoarthritis, fibromyalgia, rheumatoid arthritis who was admitted for elective right total hip arthroplasty with a direct anterior approach. She tolerated the procedure well without any immediate postoperative complications. Patient seen and examined at bedside. She is already been up with physical therapy and was able to do the stairs. Her pain is well controlled. No nausea, vomiting, chest pain, or shortness of breath. No reported history of GERD. We discussed that she could take [id number] acid suppressive medication if she develops any heartburn type symptoms while on twice daily aspirin. I also discussed with the patient trying to come off Estrace as she was out of the perimenopausal period, and that she now have an increased risk of blood clot secondary to being postsurgical and estradiol will increase this further. Objective - Vital Signs Vital signs: Vital Signs Temp 97.7 F 01/23/19 07:00 Pulse 70 01/23/19 07:00 Resp 17 01/23/19 07:00 BP 103/68 01/23/19 07:00 Pulse Ox 94 L 01/23/19 07:00 Intake & Output 01/23/19 01/23/19 01/24/19 06:59 18:59 06:59 Other: Voiding Method Toilet # Voids 1 - Exam General: non toxic, no distress, appears younger than stated age Derm: warm, dry Head: atraumatic, normocephalic, symmetric Eyes: EOMI, no lid lag, anicteric sclera Mouth: no lip lesion, mucus membranes moist Cardiovascular: S1S2 reg, no murmur, positive posterior tibial pulse bilateral, Lungs: CTA bilateral, no rhonchi, no rales , no accessory muscle use Abdominal: soft, nontender to palpation, no guarding, no appreciable organomegaly Ext: no gross muscle atrophy, 1+ edema right lower extremity, no contractures Neuro: CN II-XI grossly intact, no focal neuro deficits Psych: Alert, oriented, appropriate affect - Labs CBC & Chem 7: 01/23/19 06:52 Labs: Abnormal Lab Results - Last 24 Hours (Table) 01/23/19 Range/Units 06:52 RBC 3.26 L (3.80-5.40) m/uL Hgb 10.6 L (11.4-16.0) gm/dL Hct 32.3 L (34.0-46.0) % Assessment and Plan Assessment: Patient is a 73-year-old female status post right total hip arthroplasty. She tolerated the procedure well. Hormone supplementation use -Suggested coming off Estrace secondary to risk of blood clot Rheumatoid arthritis -Continue with methotrexate and folic acid RLS -requip Medically stable for discharge.
[2019-01-24] MEDS ORDERED: ESTRADIOL 0.5 MG TAB PO SCH (09:00)
[2019-01-26] MEDS ORDERED: METHOTREXATE SODIUM 2.5 MG TAB PO SCH (09:00)
== END 2019-01-23 12:44 | disposition home health service (06) | DRG 470 ==
LOC: 2ORMAIN 05:46 → 4SSUR 08:48
PROVIDERS: ADMIT Orthopaedic Surgery; ATTEND Orthopaedic Surgery
PROC: 0SR906A Replacement of Right Hip Joint with Oxidized Zirconium on Polyethylene Synthetic Substitute, Uncemented, Open Approach (ICD-10-PCS; principal; 2019-01-22 07:00)
DX: M16.11 Unilateral primary osteoarthritis, right hip (principal); M79.7 Fibromyalgia; M06.9 Rheumatoid arthritis, unspecified; G43.909 Migraine, unspecified, not intractable, without status migrainosus; G25.81 Restless legs syndrome; Z96.642 Presence of left artificial hip joint; Z90.710 Acquired absence of both cervix and uterus
CPT/HCPCS: 73501; 85025; 86850; 86891; 86900; 86901; 88300

== ENCOUNTER → 2019-09-12 | Outpatient (CLI) | payer MEDICARE, BC ==
[2019-09-12 08:49] VITALS: BP 126/76; PULSE 106; RESP 18; TEMP 98.3
--- NOTE | 2019-09-12 09:27 | P.GSHP ---
History of Present Illness H&P Date: 09/12/19 Chief Complaint: Abnormal mammogram left breast Terra is a 73-year-old white female seen for Dr. Aguiar who had a routine mammogram performed on 08-17-19. This showed an area of concern in the left breast for which additional views were recommended. These were performed on 7920. Loosely grouped calcifications were noted in the middle depth centrally on the left for which stereotactic core biopsy was recommended. Patient does not feel any lumps masses or nodules in her breast. She has no recent history of any trauma or infection in the breast. She has never had any surgery on her breast. She has no abnormal nipple discharge or skin changes. Caffeine: 1 diet coke/day Nicotine: Negative Theophylline: Rarely Family history: 1. Negative Hormonal history: Menarche: 13 , 2 miscarriages, first born at 21, breast fed: none menopause: hysterectomy at 39, took ovaries; done for endometriosis BCP: 5 years hormones: estrace now for hot flashes, not regularly twice a week; been on this for two years; took hormones after hysterectomy for a year Surgical history: 1. Total abdominal hysterectomy 2.bilateral hip replacement 3. knee replacement, right 4. 5. appyendectomy 6. laminectomy 7. salivary gland on the right removed with stones Medical history: 1. Rheumatoid arthritis Social history: Smoking: Negative Alcohol: Negative Drugs: Negative - Constitutional Constitutional: Reports sweats - EENT Eyes: denies blurred vision, denies pain Ears: deny: decreased hearing, tinnitus Ears, nose, mouth and throat: Reports headache, Denies sore throat - Breasts Breasts: bilateral: as per HPI - Cardiovascular Cardiovascular: Denies chest pain, Denies shortness of breath - Respiratory Respiratory: Denies cough, Denies 7 - Gastrointestinal Gastrointestinal: Denies abdominal pain, Denies diarrhea, Denies nausea, Denies vomiting - Genitourinary (Female) Genitourinary: Denies dysuria, Denies hematuria - Menstruation Menstruation: Reports post hysterectomy - Musculoskeletal Comment: Rheumatoid arthritis - Integumentary Integumentary: Denies pruritus, Denies rash - Neurological Neurological: Denies numbness, Denies weakness - Psychiatric Psychiatric: Denies anxiety, Denies depression - Endocrine Endocrine: Denies fatigue, Denies weight change - Hematologic/Lymphatic Comment: none Hematologic/Lymphatic: Reports as per HPI - Allergic/Immunologic Allergic/Immunologic: Reports as per HPI Past Medical History Past Medical History: Rheumatoid Arthritis (RA) Additional Past Medical History / Comment(s): migraines; varicose veins; restless leg syndrome; History of Any Multi-Drug Resistant Organisms: None Reported Past Surgical History: Appendectomy, Back Surgery, Section, Cholecystectomy, Hysterectomy, Joint Replacement Additional Past Surgical History / Comment(s): left hip replacement; laminectomy L4 & L5; right salivary gland removed; right knee replacement; full hysterectomy; section x2; right hip replacement; Past Anesthesia/Blood Transfusion Reactions: No Reported Reaction Past Psychological History: No Psychological Hx Reported Smoking Status: Never smoker Past Alcohol Use History: None Reported Past Drug Use History: None Reported - Past Family History Mother Family Medical History: No Reported History Additional Family Medical History / Comment(s): denies and family history of heart attack or smoke Father Family Medical History: No Reported History Medications and Allergies Home Medications Medication Instructions Recorded Confirmed Type Methotrexate Sodium [Methotrexate] 20 mg PO FR 11/03/15 09/12/19 History Folic Acid 1 mg PO QAM 04/29/17 09/12/19 History SUMAtriptan SUCCINATE [Imitrex] 25 mg PO BID PRN 04/29/17 09/12/19 History rOPINIRole HCL [Requip] 0.5 mg PO HS 04/29/17 09/12/19 History Estradiol [Estrace] 1 mg PO WEEKLY 09/12/19 09/12/19 History Allergies Allergy/AdvReac Type Severity Reaction Status Date / Time Sulfa (Sulfonamide Allergy Rash/Hives Verified 09/12/19 08:41 Antibiotics) codeine AdvReac Nausea & Verified 09/12/19 08:41 Vomiting morphine AdvReac Nausea & Verified 09/12/19 08:41 Vomiting Surgical - Exam Vital Signs Temp Pulse Resp BP Pulse Ox 98.3 F 106 H 18 126/76 99 09/12/19 08:43 09/12/19 08:43 09/12/19 08:43 09/12/19 08:43 09/12/19 08:43 BMI 24.9 - General well developed, well nourished, no distress - Eyes normal ocular movement - ENT no hearing loss, no congestion - Neck no masses, trachea midline - Respiratory normal respiratory effort, clear to auscultation - Cardiovascular Rhythm: regular Heart Sounds: normal: S1, S2 - Abdomen Abdomen: soft, non tender, no guarding, no rigid, no rebound - Integumentary normal turgor - Neurologic no disoriented, no combative - Musculoskeletal uses a cane normal posture - Psychiatric oriented to time, oriented to person, oriented to place, speech is normal, memory intact breast exam: BRA: 36B inspection: Grade 3 ptosis bilateral Palpation: Right breast: Multi-positional exam no dominant masses or nodules of concern, fibrocystic changes Right axilla: No adenopathy of concern Left breast: Multiple positional exam no dominant mass or nodules of concern, fibrocystic changes Left axilla: No adenopathy of concern Results Mammogram results reviewed Assessment and Plan Assessment: Impression: 1. Fibrocystic breast changes 2. Microcalcifications of concern left breast 3. Recent bilateral hip replacement 4. Patient with pain in left knee 5. Rheumatoid arthritis Plan: 1. Stereotactic core biopsy left breast 2. Patient is going to stop Estrace and tell results of biopsy are back 3. Continue follow-up with orthopedic surgery regarding joint pain 4. Medical management as per Dr. Aguiar Risk benefits of procedure discussed with the patient. These include but are not limited to bleeding, infection, reaction to the anesthetic. She understands and wishes to proceed. Additionally depending on the concordance of the biopsy this may require further intervention in the operating room. At this time was for waiting versus operative intervention are discussed but not recommended. CC: Dr. Aguiar encounter 45 minutes, 50% of time in planning and counselling
== END | disposition home or self-care (01) ==
LOC: WWCWWP 08:28
PROVIDERS: ATTEND Surgery
DX: Z53.9 Procedure and treatment not carried out, unspecified reason (principal)

== ENCOUNTER → 2019-09-19 | Day surgery (SDC) | payer MEDICARE, BC ==
[2019-09-19 07:28] VITALS: RESP 16
[2019-09-19 08:40] VITALS: BP 136/81; PULSE 97; TEMP 98.1
--- NOTE | 2019-09-19 09:26 | MM ---
EXAMINATION TYPE: MG stereo VAD BX LT DATE OF EXAM: 09/19/2019 COMPARISON: Outside mammogram September 06, 2019 and older mammograms. CLINICAL HISTORY: Abnormal mammogram. Suspicious calcifications TECHNIQUE: Stereotactic guided core biopsy of left breast. FINDINGS: The procedure of stereotactic guided core biopsy was explained to the patient. Benefits, alternatives, and risks were discussed. An informed consent was then obtained. The shortness pathway for biopsy was chosen. Shortness pathway was inferior approach. I performed the localization, then performed the remainder of the procedure. Overlying skin is cleansed with Betadine. Lidocaine is used as anesthetic. A vacuum assisted biopsy gun was used to obtain multiple core samples. The patient tolerated the procedure well without any immediate complication. The patient was kept in the radiology department for short stay after the procedure and then discharged home in stable condition. Targeted calcifications are identified in specimen mammogram. Post biopsy mammogram shows the clip to appear in satisfactory position relative to the targeted area of concern on the preprocedure images. Some residual adjacent calcifications are present. IMPRESSION: SUCCESSFUL, UNCOMPLICATED STEREOTACTIC GUIDED CORE BIOPSY OF AREA OF CONCERN IN THE LEFT BREAST, FULL PATHOLOGY RESULTS TO FOLLOW. Low to intermediate index of suspicion noted at time of procedure. 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 Intraductal mineralizations are identified. Recommendation Surgical consult of the left breast. MICAELA
== END ==
LOC: RADMAMWWP 07:04
PROVIDERS: ATTEND Surgery
DX: D05.12 Intraductal carcinoma in situ of left breast (principal); Z17.0 Estrogen receptor positive status [ER+]; N64.1 Fat necrosis of breast; Z88.5 Allergy status to narcotic agent; Z88.2 Allergy status to sulfonamides
CPT/HCPCS: 88305; 88342; 88341; 19081; A4648; J2001

== ENCOUNTER → 2019-09-27 | Outpatient (CLI) | payer MEDICARE, BC ==
[2019-09-27 11:25] VITALS: BP 120/86; PULSE 103; RESP 18; TEMP 97.7
--- NOTE | 2019-09-27 12:08 | P.PN ---
Subjective Progress Note Date: 09/27/19 Principal diagnosis: DCIS left breast Terra is a 73-year-old white female seen for Dr. Aguiar who had a routine mammogram performed on 08-17-19. This showed an area of concern in the left breast for which additional views were recommended. These were performed on 7920. Loosely grouped calcifications were noted in the middle depth centrally on the left for which stereotactic core biopsy was recommended. Patient does not feel any lumps masses or nodules in her breast. She has no recent history of any trauma or infection in the breast. She has never had any surgery on her breast. She has no abnormal nipple discharge or skin changes. Caffeine: 1 diet coke/day Nicotine: Negative Theophylline: Rarely Terra underwent a stero biopsy of the left breast on 09-19-19. Her pathology was grade 2 DCIS, ER+, ND-. Review of the mammogram with DR. Rodriguez showed a second group of calcifications in proximity for which bracketing and excision at the time of resection was recommended. The site in the breast is 6 Oclock. Family history: 1. Negative Hormonal history: Menarche: 13 , 2 miscarriages, first born at 21, breast fed: none menopause: hysterectomy at 39, took ovaries; done for endometriosis BCP: 5 years hormones: estrace now for hot flashes, not regularly twice a week; been on this for two years; took hormones after hysterectomy for a year Surgical history: 1. Total abdominal hysterectomy 2.bilateral hip replacement 3. knee replacement, right 4. 5. appyendectomy 6. laminectomy 7. salivary gland on the right removed with stones Medical history: 1. Rheumatoid arthritis Social history: Smoking: Negative Alcohol: Negative Drugs: Negative - Constitutional Constitutional: Reports sweats - EENT Eyes: denies blurred vision, denies pain Ears: deny: decreased hearing, tinnitus Ears, nose, mouth and throat: Reports headache, Denies sore throat - Breasts Breasts: bilateral: as per HPI - Cardiovascular Cardiovascular: Denies chest pain, Denies shortness of breath - Respiratory Respiratory: Denies cough, Denies 7 - Gastrointestinal Gastrointestinal: Denies abdominal pain, Denies diarrhea, Denies nausea, Denies vomiting - Genitourinary (Female) Genitourinary: Denies dysuria, Denies hematuria - Menstruation Menstruation: Reports post hysterectomy - Musculoskeletal Comment: Rheumatoid arthritis - Integumentary Integumentary: Denies pruritus, Denies rash - Neurological Neurological: Denies numbness, Denies weakness - Psychiatric Psychiatric: Denies anxiety, Denies depression - Endocrine Endocrine: Denies fatigue, Denies weight change - Hematologic/Lymphatic Comment: none Hematologic/Lymphatic: Reports as per HPI - Allergic/Immunologic Allergic/Immunologic: Reports as per HPI Objective - Vital Signs Vital signs: Vital Signs Temp 97.7 F 09/27/19 11:23 Pulse 103 H 09/27/19 11:23 Resp 18 09/27/19 11:23 BP 120/86 09/27/19 11:23 Pulse Ox 96 09/27/19 11:23 Intake & Output 09/26/19 09/27/19 09/27/19 18:59 06:59 18:59 Weight 65.771 kg - Exam BMI 24.9 - Constitutional General appearance: Present: average body habitus - EENT Eyes: Present: EOMI ENT: Present: hearing grossly normal - Neck Neck: Present: normal ROM - Respiratory Respiratory: bilateral: CTA - Cardiovascular Rhythm: regular Heart sounds: normal: S1, S2 - Integumentary Integumentary Comment(s): Biopsy site mild ecchymosis, no evidence of infection - Musculoskeletal Musculoskeletal: Present: gait normal - Additional findings Additional findings: Breast: BRA 36C inspection: Mild ecchymosis of biopsy site with no evidence of infection Assessment and Plan Assessment: Impression: 1. DCIS left breast 2. Second area of calcifications in proximity to area of DCIS to be removed at the same time 3. Arthritis 4. Patient scheduled for arthroscopic surgery of left knee Plan: 1. [place] node injection, sentinel node biopsy left axilla, left breast lollipop incision for onco plastic lumpectomy, possible onco plastic tissue transfer 2. Presentation of case at tumor board 3. Appointment with radiation oncology 4. Premarin with medical oncology Risk and benefits of surgical procedure discussed with the patient. The patient is given the option of mastectomy plus or minus reconstruction, onco plastic lumpectomy versus lumpectomy without movement of the nipple areolar complex. The patient wishes for onco-co plastic lumpectomy. We have discussed sentinel node biopsy versus waiting and seeing if there is any invasive cancer. She unde rstands the risks and benefits of sentinel node biopsy and wishes to proceed with that at this time. The patient's case will be presented at tumor Board. Cc: Dr. Aguiar encounter 35 minutes, > 50% of time in planning and counselling
== END ==
LOC: WWCWWP 11:14
PROVIDERS: ATTEND Surgery
DX: Z53.9 Procedure and treatment not carried out, unspecified reason (principal)

== ENCOUNTER → 2019-11-30 | Outpatient (CLI) | payer MEDICARE, BC ==
[2019-11-30 10:01] VITALS: BP 129/79; PULSE 103; RESP 16; TEMP 98.2
--- NOTE | 2019-11-30 10:17 | P.GSHP ---
History of Present Illness H&P Date: 11/30/19 Chief Complaint: DCIS left breast Terra is a 73-year-old white female seen for Dr. Aguiar who had a routine mammogram performed on 08-17-19. This showed an area of concern in the left breast for which additional views were recommended. These were performed on 7920. Loosely grouped calcifications were noted in the middle depth centrally on the left for which stereotactic core biopsy was recommended. Patient does not feel any lumps masses or nodules in her breast. She has no recent history of any trauma or infection in the breast. She has never had any surgery on her breast. She has no abnormal nipple discharge or skin changes. Caffeine: 1 diet coke/day Nicotine: Negative Theophylline: Rarely Terra underwent a stero biopsy of the left breast on 09-19-19. Her pathology was grade 2 DCIS, ER+, RI-. Review of the mammogram with DR. Rodriguez showed a second group of calcifications in proximity for which bracketing and excision at the time of resection was recommended. The site in the breast is 6 Oclock. Family history: 1. Negative Hormonal history: Menarche: 13 , 2 miscarriages, first born at 21, breast fed: none menopause: hysterectomy at 39, took ovaries; done for endometriosis BCP: 5 years hormones: estrace now for hot flashes, not regularly twice a week; been on this for two years; took hormones after hysterectomy for a year Surgical history: 1. Total abdominal hysterectomy 2.bilateral hip replacement 3. knee replacement, right 4. 5. appyendectomy 6. laminectomy 7. salivary gland on the right removed with stones Medical history: 1. Rheumatoid arthritis Social history: Smoking: Negative Alcohol: Negative Drugs: Negative - Constitutional Constitutional: Reports sweats - EENT Eyes: denies blurred vision, denies pain Ears, nose, mouth and throat: Denies headache, Denies sore throat - Breasts Breasts: bilateral: as per HPI - Cardiovascular Cardiovascular: Denies chest pain, Denies shortness of breath - Respiratory Respiratory: Denies cough, Denies 7 - Gastrointestinal Gastrointestinal: Denies abdominal pain, Denies diarrhea, Denies nausea, Denies vomiting - Menstruation Menstruation: Reports post hysterectomy - Musculoskeletal Comment: arthritis Arthroscopic surgery left knee for torn meniscus 11/09/2019 - Integumentary Integumentary: Denies pruritus, Denies rash - Neurological Neurological: Denies numbness, Denies weakness - Psychiatric Psychiatric: Denies anxiety, Denies depression - Endocrine Endocrine: Denies fatigue, Denies weight change - Hematologic/Lymphatic Comment: none - Allergic/Immunologic Allergic/Immunologic: Reports as per HPI Past Medical History Past Medical History: Rheumatoid Arthritis (RA) Additional Past Medical History / Comment(s): migraines; varicose veins; restless leg syndrome; History of Any Multi-Drug Resistant Organisms: None Reported Past Surgical History: Appendectomy, Back Surgery, Section, Cholecystectomy, Hysterectomy, Joint Replacement Additional Past Surgical History / Comment(s): left hip replacement; laminectomy L4 & L5; right salivary gland removed; right knee replacement; full hysterectomy; section x2; right hip replacement; Past Anesthesia/Blood Transfusion Reactions: No Reported Reaction Past Psychological History: No Psychological Hx Reported Smoking Status: Never smoker Past Alcohol Use History: None Reported Past Drug Use History: None Reported - Past Family History Mother Family Medical History: No Reported History Additional Family Medical History / Comment(s): denies and family history of heart attack or smoke Father Family Medical History: No Reported History Medications and Allergies Home Medications Medication Instructions Recorded Confirmed Type metHOTREXate sodium [Methotrexate] 20 mg PO FR 11/03/15 09/27/19 History Folic Acid 1 mg PO QAM 04/29/17 09/27/19 History SUMAtriptan SUCCINATE [Imitrex] 25 mg PO BID PRN 04/29/17 09/27/19 History rOPINIRole HCL [Requip] 0.5 mg PO HS 04/29/17 09/27/19 History Allergies Allergy/AdvReac Type Severity Reaction Status Date / Time Sulfa (Sulfonamide Allergy Rash/Hives Verified 09/27/19 11:22 Antibiotics) codeine AdvReac Nausea & Verified 09/27/19 11:22 Vomiting morphine AdvReac Nausea & Verified 09/27/19 11:22 Vomiting Surgical - Exam BMI 24.2 - General well developed, well nourished, no distress - Eyes normal ocular movement - ENT no hearing loss, no congestion - Neck trachea midline - Respiratory normal respiratory effort, clear to auscultation - Cardiovascular Rhythm: regular Heart Sounds: normal: S1, S2 - Abdomen Abdomen: soft, non tender, no guarding, no rigid, no rebound - Integumentary normal turgor - Neurologic no disoriented, no combative - Musculoskeletal normal gait, normal posture - Psychiatric oriented to time, oriented to person, oriented to place, speech is normal, memory intact breast exam: BRA 36C inspection: ptosis grade 2/3 bilateral palpation: right breast : Multi-positional exam fibrocystic changes, no dominant masses or nodules of concern Right axilla: No adenopathy of concern Left breast: Multi-positional exam no dominant masses or nodules of concern Left axilla: No adenopathy of concern Results Mammogram reviewed the patient has a second area of calcifications in proximity for which bracketing an excision at the time of resection was recommended the site in the breast at 6:00 Assessment and Plan Assessment: Impression: DCIS left breast 2. Secondary calcifications proximity to the area of DCIS to be removed at the same time 3. Arthritis 4. Patient status post arthroscopic surgery of the left knee Plan: 1. [place] node injection, sentinel node biopsy left axilla, possible axillary node dissection, left breast probable lollipop incision for onco plastic lumpectomy, mastopexy, possible onco plastic tissue transfer, needle localization of DCIS as well as area at 6:00 to be removed at the time of surgery 2. Patient has seen radiation medical oncology 3. medical clearance was obtained recently Risks and benefits of surgical procedure discussed with the patient. The patient was given the option of mastectomy plus or minus reconstruction, uncle plastic lumpectomy versus a lumpectomy without movement of the nipple areolar complex. The patient wishes for uncle plastic lumpectomy. We discussed sentinel node biopsy versus waiting and see if there is any invasive cancer. She understands the risks and benefits of sentinel biopsy wishes to proceed at the time of surgery. CC: Dr. Aguiar encounter 25 minutes, > 50% of time in planning and counselling
== END | disposition home or self-care (01) ==
LOC: WWCWWP 09:38
PROVIDERS: ATTEND Surgery
DX: Z53.9 Procedure and treatment not carried out, unspecified reason (principal)

== ENCOUNTER → 2019-12-11 | Day surgery (SDC) | payer MEDICARE, BC ==
[~2019-12-11] MED LIST changes: -ACETAMINOPHEN TAB 500 MG TAB PO ONE; +ALPRAZolam 0.25 MG TAB ONE; -GABAPENTIN 300 MG CAP PO ONE; +HEPARIN SODIUM,PORCINE 5,000 UNIT/ML 1 ML VIAL SQ ONE; +LIDOCAINE 1% (10MG/ML) FOR IV START INTRADERMA PRN; +LIDOCAINE 1% INJ 10MG/ML (20 ML MDV) ONE; +LIDOCAINE 1% INJ 10MG/ML (20 ML MDV) SQ ONE; -MELOXICAM 7.5 MG TAB PO ONE; +MIDAZOLAM 2 MG/2 ML VIAL ONE; +PHENYLEPHRINE-0.9% NACL SYG 1 MG/10 ML SYRINGE ONE; +PROPOFOL 10 MG/ML 20 ML VIAL IV ONE; +Pre Op ABX Message 1 EACH MISC MISCELLANE ONE; +SUCCINYLCHOLINE CHLORIDE 100 MG/5 ML SYR IV ONE; -TRANEXAMIC ACID 1,000 MG in SODIUM CHLORIDE 0.9% 100 ML IVPB ONE; +fentaNYL (PF) 50 MCG/ML 2 ML AMP ONE
[2019-12-11 08:29] VITALS: RESP 16
[2019-12-11] MEDS: LACTATED RINGERS 1,000 ML IV SCH ×2 (08:41→15:35)
--- NOTE | 2019-12-11 13:43 | MM ---
EXAMINATION TYPE: MG pre op needle loc LT, MG surgical specimen LT, MG pre op loc each addl LT DATE OF EXAM: 12/11/2019 10:29 AM COMPARISON: NONE HISTORY: Left breast malignancy. 2 site needle localization. Informed consent was obtained and all the patient's questions were answered. The clip and calcificat ions in question were localized mammographically. The standard sterile technique was utilized, as w ell as appropriate local anesthesia with 1% Lidocaine and bicarbonate. Localization needles followed by placement of a guidewires was performed under mammographic guidance. Verification images demonstr ate appropriate deployment of the guidewires. The patient tolerated the procedure well and left the department in stable condition. Specimen radiograph demonstrates the clip and calcifications in question to reside within the specim en. IMPRESSION: Successful needle localization and open biopsy left breast with pathology results pending .
--- NOTE | 2019-12-11 13:44 | NM ---
EXAMINATION TYPE: NM sentinel node injection DATE OF EXAM: 12/11/2019 COMPARISON: NONE HISTORY: LEFT BREAST CA TECHNIQUE AND FINDINGS: The procedure of sentinel lymph node injection was explained to the patient. The benefits, alternatives, and risks were discussed. An informed consent was then obtained. Overlying skin is cleaned with sterile alcohol. Following this, 507 uCi Tc99m Tilmanocept was inject ed in the upper outer aspect of the left nipple intradermally. The patient tolerated the procedure well without any immediate complication. The patient was kept in the radiology department for short stay after the procedure and then taken to surgery for surgical p rocedure what is presumed intraoperative gamma probe will be used for sentinel lymph node detection. IMPRESSION: Left breast radiotracer injection for sentinel node localization as above.
--- NOTE | 2019-12-11 14:31 | P.OP ---
Date of Procedure: 12/11/19 Preoperative Diagnosis: Left breast ductal carcinoma in situ, second area with questionable calcifications Postoperative Diagnosis: Same Procedure(s) Performed: Left breast sentinel node biopsy, donut mastopexy, oncho plastic tissue transfer, needle localization lumpectomy Anesthesia: LESLEYA Surgeon: Marylin Alexander Estimated Blood Loss (ml): 15 IV fluids (ml): 700 Pathology: other (Breast tissue, axillary lymph node) Condition: stable Disposition: same day Indications for Procedure: Ductal carcinoma in situ on core biopsy of left breast near 6:00, abnormal microcalcifications left breast at 6:00 Operative Findings: Fibrofatty breast tissue Description of Procedure: Terra is a 74-year-old white female who was diagnosed with left breast ductal carcinoma in situ on core biopsy. Additionally she was noted to have an area of microcalcifications which were also considered suspicious and warranted excision. After discussion of the operative choices she wished to have a lumpectomy via a mastopexy incision if possible. We discussed a lollipop incision and that is what she wished to have done. Preoperatively the area of concern was localized in radiology. Additionally injection of lymphokine was made for the [place] node biopsy. The patient was seen in the preoperative area and the markings for the incisions were made. The new areolar location was 2 cm above the old areolar location at the meridian line. It was felt that the resection would be via an eccentric donut mastopexy with an extension inferiorly for resection of the tumor. The patient was brought to the operating room and following induction of anesthesia the neoprobe was used to determine where the greatest radioactivity was present in the axilla. After this was determined the patient was prepped and draped in a sterile fashion. The neoprobe was used to identify the areas greatest radioactivity in the axilla and an incision was made. This was carried down to the lymph node of concern. Using the Harmonic scalpel the lymph node was resected. The wound was examined for hemostasis. The 10 second count on the lymph node was 2393. The 10 second count and the background axilla was 29. Following this the deep tissues of the axilla were closed using 3-0 Vicryl suture. The skin was closed using 4-0 Monocryl. Following this the area of the breast was approached. The markings made in the preoperative area where reinforced. The skin was de-epithelialized in the donut shape around the areolar. Inferiorly at the 6 o'clock position A crescent of skin was removed and the area around the needle was removed as well down to the pectoralis major muscle. The specimen was painted for orientation. The specimen was sent for x-ray and the areas of concern were noted to be present. The clips and the microcalcifications of concern were removed. Following this the cavity was addressed. Mobilization of lateral tissue 7 x 4 cm, 32 cm was freed. Medially 7 x 5 cm 35 m squared was freed. A total of 67 cm of tissue was freed to move into the defect. The tissue was brought together from medial to lateral using 3-0 Vicryl suture. Prior to this titanium clips two superior and one lateral were used to silvia the cavity. The cavity was well irrigated and after we were assured that hemostasis was attained surgicel in powder form was placed. Following this the subcutaneous tissues were closed using 3-0 Vicryl suture. This is followed by closure of a 4-0 Monocryl on the inferior limb of the incision and a 4-0 nylon suture. Circumferentially a 3-0 Prolene was placed in a pursestring fashion around the external [place] this was cinched up. The incision around the areolar was then reapproximated to the areolar using a wagon wheel approach with a Prolene suture. This was followed by a nylon skin suture. All instrument and sponge counts were correct at the end of the case. 10 Cc of lidocaine was injected into the incision. A sterile dressing was applied. The patient tolerated the procedure in stable condition.
--- NOTE | 2019-12-11 14:33 | P.DS ---
Providers Attending physician: Marylin Alexander Primary care physician: OCTAVIANO Waldron Plan - Discharge Summary Discharge Rx Participant: No New Discharge Prescriptions: No Action metHOTREXate sodium [Methotrexate] 20 mg PO FR rOPINIRole HCL [Requip] 0.5 mg PO HS SUMAtriptan SUCCINATE [Imitrex] 25 mg PO BID PRN PRN Reason: migraines Folic Acid 1 mg PO QAM Discharge Medication List metHOTREXate sodium [Methotrexate] 20 mg PO FR 11/03/15 [History] Folic Acid 1 mg PO QAM 04/29/17 [History] SUMAtriptan SUCCINATE [Imitrex] 25 mg PO BID PRN 04/29/17 [History] rOPINIRole HCL [Requip] 0.5 mg PO HS 04/29/17 [History] Follow up Appointment(s)/Referral(s): Marylin Alexander MD [STAFF PHYSICIAN] - 1 Week Activity/Diet/Wound Care/Special Instructions: do not drive until seen by Dr. Adame may shower after 48 hours wear bra at all times Discharge Disposition: HOME SELF-CARE
--- NOTE | 2019-12-11 14:33 | P.NAPBC ---
NAPBC Queries - NAPBC Queries Was patient's case review presented at [facility] tumor board? If no, comment.: Yes Was patient's pathology reviewed at [facility]? If no, comment.: Yes Was breast conservation surgery offered? If no, comment.: Yes Was sentinel node biopsy offered? If no, comment.: Yes Was diagnosis confirmed by percutaneous core biopsy? If no, comment.: Yes Is patient mastectomy patient?: No Was a preop referral to reconstructive surgeon offered?: No Clinical Stage: stage 0
[2019-12-11 14:34] VITALS: TEMP 97
[2019-12-11] MEDS: HYDROmorphone 0.5 MG/0.5 ML SYRINGE IVP PRN ×3 (14:58→15:25)
[2019-12-11 16:13] VITALS: PULSE 98
[2019-12-11 16:16] VITALS: BP 149/88
== END | disposition home or self-care (01) ==
LOC: OR 07:48
PROVIDERS: ATTEND Surgery
DX: C50.912 Malignant neoplasm of unspecified site of left female breast (principal); R92.1 Mammographic calcification found on diagnostic imaging of breast; M06.9 Rheumatoid arthritis, unspecified; G43.909 Migraine, unspecified, not intractable, without status migrainosus; G25.81 Restless legs syndrome; Z79.899 Other long term (current) drug therapy; Z88.5 Allergy status to narcotic agent; Z88.2 Allergy status to sulfonamides
CPT/HCPCS: 19316; 19301; 38525; 76098; 38792; A9520; J2250; J1644; J1100; J2405; J2001; J3010; J2370; J0330; J2704; J1170; 19282; 88305; 88307; 88341; 88342

== ENCOUNTER → 2019-12-20 | Outpatient (CLI) | payer MEDICARE, BC ==
[2019-12-06 14:36] VITALS: BMI 23.8
[2019-12-20 16:30] VITALS: BP 134/71; PULSE 96; RESP 18; TEMP 97.4
--- NOTE | 2019-12-20 16:39 | P.PN ---
Progress Note - Text Progress Note Date: 12/20/19 Patient is a 74-year-old white female status post left breast lumpectomy and sentinel node biopsy and [id number]. [place] node was negative for metastatic cancer. There was one microscopic focus of DCIS less than 0.2 mm from the lateral inked margin. The patient postoperatively is doing well without complaints. The size of the DCIS was 10 x 4 x 3 mm. Physical exam: Lungs: Clear Heart: Regular rate and rhythm Incision: Clean and dry The periareolar sutures are removed the inferior limb sutures are left in place Plan: Review case with pathology and medical and radiation oncology The patient would prefer to not have reexcision if possible, although we visualized the lesion is close laterally it was negative at the inked margin. Patient will follow next week for remainder of suture removal and case will be reviewed as stated. cc: Dr. Aguiar
== END | disposition home or self-care (01) ==
LOC: WWCWWP 16:18
PROVIDERS: ATTEND Surgery
DX: Z53.9 Procedure and treatment not carried out, unspecified reason (principal)

== ENCOUNTER → 2019-12-27 | Outpatient (CLI) | payer MEDICARE, BC ==
[2019-12-27 12:48] VITALS: BP 146/81; PULSE 96; RESP 16; TEMP 98
--- NOTE | 2019-12-27 13:19 | P.PN ---
Progress Note - Text Patient is a 74-year-old white female status post left breast lumpectomy and sentinel node biopsy on . [place] node was negative for metastatic cancer. There was one microscopic focus of DCIS less than 0.2 mm from the lateral inked margin. The patient postoperatively is doing well without complaints. The size of the DCIS was 10 x 4 x 3 mm. her case was reviewed with Dr. Polanco from radiation oncology and was felt that reexcision was not necessary. The patient understands this as well. Physical exam: Lungs: Clear Heart: Regular rate and rhythm Incision: Clean and dry All sutures to be removed Plan: follow up with DR. Monte follow up with radiation onclogy follow up here in 3 months The patient would prefer to not have reexcision the lesion is close laterally although it was negative at the inked margin. Cc: Maryanne SERRANO
== END | disposition home or self-care (01) ==
LOC: WWCWWP 12:33
PROVIDERS: ATTEND Surgery
DX: Z53.9 Procedure and treatment not carried out, unspecified reason (principal)

== ENCOUNTER → 2020-03-27 | Outpatient (CLI) | payer MEDICARE, BC ==
[2020-03-27 15:57] VITALS: BP 119/79; PULSE 92; RESP 18; TEMP 98.6
--- NOTE | 2020-03-27 16:31 | P.PN ---
Subjective Progress Note Date: 03/27/20 Principal diagnosis: left breast DCIS Terra is a 74-year-old white female initially seen for Dr. Aguiar who had a routine mammogram performed on 08-17-19. This showed an area of concern in the left breast for which additional views were recommended. These were performed on 7920. Loosely grouped calcifications were noted in the middle depth centrally on the left for which stereotactic core biopsy was recommended. Patient did not feel any lumps masses or nodules in her breast. She had no recent history of any trauma or infection in the breast. [id number] she had a stereotactic core biopsy left breast. 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 She was scheduled for arthroscopic knee surgery MS her breast surgery was delayed until November 2019. On 12-11-19 she had a lumpectomy and SNB. At that time at the lumpectomy site DCIS was noted adjacent to the [place] lateral margin 0.2 mm away from the 8 and the patient was noted to have 1 lymph node negative for malignancy. Her case was reviewed with Dr. Polanco and it was felt that the patient did not need reexcision. She did have radiation therapy and finished at the end of January. She saw DR. Monte today and is being started on tamoxifen. The patient has no concerns about her breast. No new lumps masses or nodules. NO nipple discharge or skin changes. Caffeine: 1 diet coke/day Nicotine: Negative iris-bromine: Rarely Family history: 1. Negative Hormonal history: Menarche: 13 , 2 miscarriages, first born at 21, breast fed: none menopause: hysterectomy at 39, took ovaries; done for endometriosis BCP: 5 years hormones: estrace for hot flashes in the past, not regularly twice a week; been on this for two years; took hormones after hysterectomy for a year Surgical history: 1. Total abdominal hysterectomy 2.bilateral hip replacement 3. knee replacement, right 4. 5. appyendectomy 6. laminectomy 7. salivary gland on the right removed with stones 8. left bresat lumpectomy and SNB 9. left knee replacement in October 2019 Medical history: 1. Rheumatoid arthritis Social history: Smoking: Negative Alcohol: Negative Drugs: Negative - Constitutional Constitutional: Reports sweats - EENT Eyes: denies blurred vision, denies pain Ears, nose, mouth and throat: Denies headache, Denies sore throat - Breasts Breasts: bilateral: as per HPI - Cardiovascular Cardiovascular: Denies chest pain, Denies shortness of breath - Respiratory Respiratory: Denies cough - Gastrointestinal Gastrointestinal: Denies abdominal pain, Denies diarrhea, Denies nausea, Denies vomiting - Menstruation Menstruation: Reports post hysterectomy - Musculoskeletal Comment: arthritis Arthroscopic surgery left knee for torn meniscus 11/09/2019 - Integumentary Integumentary: Denies pruritus, Denies rash - Neurological Neurological: Denies numbness, Denies weakness - Psychiatric Psychiatric: Denies anxiety, Denies depression - Endocrine Endocrine: Denies fatigue, Denies weight change - Hematologic/Lymphatic Comment: none - Allergic/Immunologic Allergic/Immunologic: Reports as per HPI Objective - Vital Signs Vital signs: Vital Signs Temp 98.6 F 03/27/20 15:54 Pulse 92 03/27/20 15:54 Resp 18 03/27/20 15:54 BP 119/79 03/27/20 15:54 Pulse Ox 99 03/27/20 15:54 Intake & Output 03/26/20 03/27/20 03/27/20 18:59 06:59 18:59 Weight 68.039 kg - Exam BMI 25 - Constitutional General appearance: Present: average body habitus, cooperative - EENT Eyes: Present: EOMI ENT: Present: hearing grossly normal - Neck Neck: Present: normal ROM - Respiratory Respiratory: bilateral: CTA - Cardiovascular Rhythm: regular Heart sounds: normal: S1, S2 - Gastrointestinal General gastrointestinal: Present: normal bowel sounds, soft - Integumentary Integumentary: Present: normal turgor - Musculoskeletal Musculoskeletal Comment(s): difficulty with ambulation - Psychiatric Psychiatric: Present: A&O x's 3, appropriate affect, intact judgment & insight - Additional findings Additional findings: breast exam: BRA: 36B inspection: puffy aerolar complex on the left, grade 2/3 ptosis bilateral palpation: right breast: Multiple positional exam fibrocystic changes, no dominant masses or nodules of concern Right axilla: No adenopathy of concern Left breast: Multi-positional exam fibrocystic changes, scar from prior surgery, radiation changes, nipple areolar complex appears to be prominent, no pain at nipple aerolar complex, she does have sensation at this site Left axilla: No adenopathy of concern Assessment and Plan Assessment: Impression: 1. left breast stage 0 cancer 2. status post radiation 3. starting on tamoxifen Plan: 1. follow up in 4 months 2. continue to follow up with medical and radiation oncology 3. call sooner if any concerns CC: Maryanne Fuller encounter 20 minutes time spent in reviewing medical records, physical examination, counseling.
== END | disposition home or self-care (01) ==
LOC: WWCWWP 15:26
PROVIDERS: ATTEND Surgery
DX: Z53.9 Procedure and treatment not carried out, unspecified reason (principal)

== ENCOUNTER → 2020-08-19 | Outpatient (CLI) | payer MEDICARE, BC ==
--- NOTE | 2020-08-19 11:48 | MM ---
Reason for exam: additional evaluation requested from prior study. Last mammogram was performed 8 months ago. History: Patient is postmenopausal and has history of breast cancer at age 74. Malignant MG pre op loc each addl LT of the left breast, December 11, 2019. Malignant MG pre op needle loc LT of the left breast, December 11, 2019. Lumpectomy of the left breast, December 11, 2019. Malignant MG stereo VAD BX LT of the left breast, September 19, 2019. Physical Findings: Nurse did not find any significant physical abnormalities on exam. MG 3D Diag Mammo W/Cad JUAN PABLO Bilateral CC and MLO view(s) were taken. Prior study comparison: December 11, 2019, mammogram. September 19, 2019, mammogram. September 06, 2019, mammogram. The breast tissue is heterogeneously dense. This may lower the sensitivity of mammography. There is a faint grouping of calcifications in the upper retroareolar breast. Patient could not tolerate magnification views. Follow up diagnostic mammogram recommended in 6 months. Left post operative changes. These results were verbally communicated with the patient and result sheet given to the patient on 08/19/20. ASSESSMENT: Probably benign, BI-RAD 3 RECOMMENDATION: Follow-up diagnostic mammogram of the left breast in 6 months.
== END | disposition home or self-care (01) ==
LOC: RADMAMWWP 09:38
PROVIDERS: ATTEND Surgery
DX: Z08 Encounter for follow-up examination after completed treatment for malignant neoplasm (principal); Z85.3 Personal history of malignant neoplasm of breast
CPT/HCPCS: 77066; G0279; 77062

== ENCOUNTER → 2020-08-28 | Outpatient (CLI) | payer MEDICARE, BC ==
[2020-08-28 09:31] VITALS: BP 125/75; PULSE 68; RESP 16; TEMP 97.8
--- NOTE | 2020-08-28 10:14 | P.PN ---
Subjective Progress Note Date: 08/28/20 Principal diagnosis: left breast DCIS Terra is a 74-year-old white female initially seen for Dr. Aguiar who had a routine mammogram performed on 08-17-19. This showed an area of concern in the left breast for which additional views were recommended. These were performed on 7920. Loosely grouped calcifications were noted in the middle depth centrally on the left for which stereotactic core biopsy was recommended. Patient did not feel any lumps masses or nodules in her breast. She had no recent history of any trauma or infection in the breast. [id number] she had a stereotactic core biopsy left breast. 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 She was scheduled for arthroscopic knee surgery MS her breast surgery was delayed until November 2019. On 12-11-19 she had a lumpectomy and SNB. At that time at the lumpectomy site DCIS was noted adjacent to the [place] lateral margin 0.2 mm away from the 8 and the patient was noted to have 1 lymph node negative for malignancy. Her case was reviewed with Dr. Polanco and it was felt that the patient did not need reexcision. She did have radiation therapy and finished at the end of January. She saw DR. Monte today and was started on tamoxifen. She is not concerned about any new lumps masses or nodules in either breast. She is tolerating the tamoxifen, although she is complaining of hot flashes which have reduced her ability to sleep. She has discussed this with Dr. Monte. She had a bilateral mammogram on 08-19-20 which is reviewed with radiology, Dr. Lau which did not show any lesions of concern in the right breast, however in the left breast there were faint grouping of calcifications in the upper retroareolar area for which six-month follow-up was recommended. Patient's clinic note from Dr. Monte and [id number] was reviewed. Patient had risk analysis for recurrence/[facility] Breast cancer nomogram DCIS recurrence with endocrine therapy 5-year-old risk of recurrence was 2% and 10 year risk 3%, without endocrine therapy five-year risk was 4% and 10 year risk 7%. The patient has this information and we'll decide in conjunction with Dr. Monte if she wishes to continue the tamoxifen. Caffeine: 1 diet coke/day Nicotine: Negative iris-bromine: Rarely Family history: 1. Negative Hormonal history: Menarche: 13 , 2 miscarriages, first born at 21, breast fed: none menopause: hysterectomy at 39, took ovaries; done for endometriosis BCP: 5 years hormones: estrace for hot flashes in the past, not regularly twice a week; been on this for two years; took hormones after hysterectomy for a year Surgical history: 1. Total abdominal hysterectomy 2.bilateral hip replacement 3. knee replacement, right 4. 5. appyendectomy 6. laminectomy 7. salivary gland on the right removed with stones 8. left bresat lumpectomy and SNB 9. left knee replacement in October 2019 Medical history: 1. Rheumatoid arthritis Social history: Smoking: Negative Alcohol: Negative Drugs: Negative - Constitutional Constitutional: Reports sweats - EENT Eyes: denies blurred vision, denies pain Ears, nose, mouth and throat: Denies headache, Denies sore throat - Breasts Breasts: bilateral: as per HPI - Cardiovascular Cardiovascular: Denies chest pain, Denies shortness of breath - Respiratory Respiratory: Denies cough - Gastrointestinal Gastrointestinal: Denies abdominal pain, Denies diarrhea, Denies nausea, Denies vomiting - Menstruation Menstruation: Reports post hysterectomy - Musculoskeletal Comment: arthritis Arthroscopic surgery left knee for torn meniscus 11/09/2019 - Integumentary Integumentary: Denies pruritus, Denies rash - Neurological Neurological: Denies numbness, Denies weakness - Psychiatric Psychiatric: Denies anxiety, Denies depression - Endocrine Endocrine: Denies fatigue, Denies weight change - Hematologic/Lymphatic Comment: none - Allergic/Immunologic Allergic/Immunologic: Reports as per HPI Objective - Vital Signs Vital signs: Vital Signs Temp 97.8 F 08/28/20 09:24 Pulse 68 08/28/20 09:24 Resp 16 08/28/20 09:24 BP 125/75 08/28/20 09:24 Pulse Ox 100 08/28/20 09:24 Intake & Output 08/27/20 08/28/20 08/28/20 18:59 06:59 18:59 Weight 63.503 kg - Exam BMI 24 - Constitutional General appearance: Present: average body habitus - EENT Eyes: Present: EOMI ENT: Present: hearing grossly normal - Neck Neck: Present: normal ROM - Respiratory Respiratory: bilateral: CTA - Cardiovascular Rhythm: regular Heart sounds: normal: S1, S2 - Integumentary Integumentary: Present: normal turgor - Musculoskeletal Musculoskeletal: Present: gait normal - Psychiatric Psychiatric: Present: A&O x's 3, appropriate affect, intact judgment & insight - Additional findings Additional findings: Breast Exam: BRA: 34C Inspection: Left breast status post surgery and radiation changes, grade 3 ptosis bilateral palpation: Right breast: Multi-positional exam fibrocystic changes no dominant masses or nodules of concern Right axilla: No adenopathy of concern Left breast: Status post surgery and radiation changes, no dominant masses or nodules of concern Left axilla: No adenopathy of concern Assessment and Plan Assessment: Impression: 1. Patient status post left breast lumpectomy/radiation therapy/presently on tamoxifen for stage 0 left breast cancer with positive lateral margin 2. Recent bilateral mammogram questionable area of calcifications retroareolar region not close to prior lumpectomy site and repeat left breast mammogram in 6 months recommended 3. Nothing on physical examination today to warrant interventional biopsy 4. Patient is having some symptoms related to the tamoxifen/frequent hot flashes she will consider stopping this after discussion with Dr. Monte Plan: 1. Patient to talk to Dr. Monte regarding the tamoxifen 2. Repeat left breast mammogram in 6 months with physician exam at that time 3. Patient to call sooner if any questions or concerns CC: Dr. Kan
== END ==
LOC: WWCWWP 09:15
PROVIDERS: ATTEND Surgery
DX: N95.1 Menopausal and female climacteric states (principal); M06.9 Rheumatoid arthritis, unspecified; Z92.3 Personal history of irradiation; Z85.3 Personal history of malignant neoplasm of breast; Z98.890 Other specified postprocedural states; Z79.810 Long term (current) use of selective estrogen receptor modulators (SERMs); Z88.2 Allergy status to sulfonamides; Z88.5 Allergy status to narcotic agent

== ENCOUNTER → 2021-02-26 | Outpatient (CLI) | payer MEDICARE, BC ==
--- NOTE | 2021-02-26 12:02 | MM ---
Reason for exam: follow-up at short interval from prior study. Last mammogram was performed 6 months ago. History: Patient is postmenopausal and has history of breast cancer at age 74. Malignant MG pre op loc each addl LT of the left breast, December 11, 2019. Malignant MG pre op needle loc LT of the left breast, December 11, 2019. Lumpectomy of the left breast, December 11, 2019. Malignant MG stereo VAD BX LT of the left breast, September 19, 2019. Taking antineoplastic for 1 year. Physical Findings: Nurse did not find any significant physical abnormalities on exam. MG 3D Diag Mammo W/Cad LT CC, MLO, and LM view(s) were taken of the left breast. Prior study comparison: August 19, 2020, bilateral MG 3d diag mammo w/cad JUAN PABLO. December 11, 2019, mammogram. Superior calcifications at the areolar breast have increased but now have a more course appearance, suspect developing dystrophic calcifications. These results were verbally communicated with the patient and result sheet given to the patient on 02/26/21. ASSESSMENT: Probably benign, BI-RAD 3 RECOMMENDATION: Follow-up diagnostic mammogram of both breasts in 6 months. Back on schedule for July 2021.
== END | disposition home or self-care (01) ==
LOC: RADMAMWWP 10:50
PROVIDERS: ATTEND Surgery
DX: Z85.3 Personal history of malignant neoplasm of breast (principal)
CPT/HCPCS: 77065; G0279; 77061

== ENCOUNTER → 2021-03-12 | Outpatient (CLI) | payer MEDICARE, BC ==
[2021-03-12 15:26] VITALS: BP 123/77; PULSE 100; RESP 18; TEMP 98
--- NOTE | 2021-03-12 15:41 | P.PN ---
Subjective Progress Note Date: 03/12/21 Principal diagnosis: left breast DCIS left breast DCIS Terra is a 75-year-old white female initially seen for Dr. Aguiar who had a routine mammogram performed on 08-17-19. This showed an area of concern in the left breast for which additional views were recommended. These were performed on 7920. Loosely grouped calcifications were noted in the middle depth centrally on the left for which stereotactic core biopsy was recommended. Patient did not feel any lumps masses or nodules in her breast. She had no recent history of any trauma or infection in the breast. [id number] she had a stereotactic core biopsy left breast. 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 She was scheduled for arthroscopic knee surgery MS her breast surgery was delayed until November 2019. On 12-11-19 she had a lumpectomy and SNB. At that time at the lumpectomy site DCIS was noted adjacent to the [place] lateral margin 0.2 mm away from the 8 and the patient was noted to have 1 lymph node negative for malignancy. Her case was reviewed with Dr. Polanco and it was felt that the patient did not need reexcision. She did have radiation therapy and finished at the end of January 2020. She saw DR. Monte and was started on tamoxifen. She is not concerned about any new lumps masses or nodules in either breast. She did not tolerated the tamoxifen and was started on Arimidex in 12-18. She had a bilateral mammogram on 08-19-20 which was reviewed with radiology, Dr. Lau which did not show any lesions of concern in the right breast, however in the left breast there were faint grouping of calcifications in the upper retroareolar area for which six-month follow-up was recommended. Left breast mammogram on 02-26-21 Calcifications felt to have a coarse appearance and this was a BIRAD 3, repeat bilateral mammogram in 6 months. Patient is not complaining of any new lumps masses or nodules of concern in either breast. Patient's clinic note from Dr. Monte on was reviewed. Caffeine: 1 diet coke/day Nicotine: Negative iris-bromine: Rarely Family history: 1. Negative Hormonal history: Menarche: 13 , 2 miscarriages, first born at 21, breast fed: none menopause: hysterectomy at 39, took ovaries; done for endometriosis BCP: 5 years hormones: estrace for hot flashes in the past, not regularly twice a week; been on this for two years; took hormones after hysterectomy for a year Surgical history: 1. Total abdominal hysterectomy 2.bilateral hip replacement 3. knee replacement, right 4. 5. appyendectomy 6. laminectomy 7. salivary gland on the right removed with stones 8. left bresat lumpectomy and SNB 9. left knee replacement in October 2019 Medical history: 1. Rheumatoid arthritis Social history: Smoking: Negative Alcohol: Negative Drugs: Negative - Constitutional Constitutional: Reports sweats - EENT Eyes: denies blurred vision, denies pain Ears, nose, mouth and throat: Denies headache, Denies sore throat - Breasts Breasts: bilateral: as per HPI - Cardiovascular Cardiovascular: Denies chest pain, Denies shortness of breath - Respiratory Respiratory: Denies cough - Gastrointestinal Gastrointestinal: Denies abdominal pain, Denies diarrhea, Denies nausea, Denies vomiting - Menstruation Menstruation: Reports post hysterectomy - Musculoskeletal Comment: arthritis Arthroscopic surgery left knee for torn meniscus 11/09/2019 - Integumentary Integumentary: Denies pruritus, Denies rash - Neurological Neurological: Denies numbness, Denies weakness - Psychiatric Psychiatric: Denies anxiety, Denies depression - Endocrine Endocrine: Denies fatigue, Denies weight change - Hematologic/Lymphatic Comment: none - Allergic/Immunologic Allergic/Immunologic: Reports as per HPI Objective - Vital Signs Vital signs: Vital Signs Temp 98.0 F 03/12/21 15:24 Pulse 100 03/12/21 15:24 Resp 18 03/12/21 15:24 BP 123/77 03/12/21 15:24 Pulse Ox 94 L 03/12/21 15:24 Intake & Output 03/11/21 03/12/21 03/12/21 18:59 06:59 18:59 Weight 65.771 kg - Exam BMI 24.1 - Constitutional General appearance: Present: cooperative - EENT Eyes: Present: EOMI ENT: Present: hearing grossly normal - Neck Neck: Present: normal ROM - Respiratory Respiratory: bilateral: CTA - Cardiovascular Heart sounds: normal: S1, S2 - Gastrointestinal General gastrointestinal: Present: soft - Integumentary Integumentary: Present: normal turgor - Musculoskeletal Musculoskeletal: Present: gait normal - Psychiatric Psychiatric: Present: A&O x's 3, appropriate affect, intact judgment & insight - Additional findings Additional findings: Breast Exam: BRA: 36C Inspection: Postsurgical and radiation changes left breast Palpation: Right breast: Multiple positional exam fibrocystic changes no dominant masses or nodules of concern Right axilla: No adenopathy of concern Left breast: Well-healed scars from prior surgery no dominant masses or nodules of concern Postradiation changes Left axilla: No adenopathy of concern Assessment and Plan Assessment: Impression: Patient status post left breast lumpectomy/sentinel node biopsy November 2019, no evidence of any recurrent disease patient remains on anastrozole she did have a course of radiation therapy Plan: Continue follow-up with medical oncology Continue follow-up with radiation oncology Follow-up appearance 6 months patient to follow up sooner if any questions or concerns CC: Dr. Kan
== END ==
LOC: WWCWWP 15:07
PROVIDERS: ATTEND Surgery
DX: Z08 Encounter for follow-up examination after completed treatment for malignant neoplasm (principal); Z98.890 Other specified postprocedural states; Z85.3 Personal history of malignant neoplasm of breast; Z79.811 Long term (current) use of aromatase inhibitors; M06.9 Rheumatoid arthritis, unspecified; Z88.2 Allergy status to sulfonamides; Z88.5 Allergy status to narcotic agent; Z88.6 Allergy status to analgesic agent

== ENCOUNTER → 2021-05-27 | Outpatient (CLI) | payer MEDICARE, BC ==
--- NOTE | 2021-05-27 14:58 | BD ---
EXAMINATION TYPE: Axial Bone Density DATE OF EXAM: 05/27/2021 COMPARISON: NONE CLINICAL HISTORY: 75 years year old Female. ICD-10 CODE: Z79.890 POST MENOPAUSAL WITHOUT HRT Height: 62.4 Weight: 149 FRAX RISK QUESTIONS: Family History (Parent hip fracture): YES Glucocorticoids (More than 3mos): YES (Ex: prednisone, prednisolone, methylprednisolone, dexamethasone, and hydrocortisone). Secondary Osteoporosis: YES 3. Menopause before 45: YES Rheumatoid Arthritis: YES RISK FACTORS HISTORY OF: Surgery to Spine/Hip L4 AND L5 LAMINECTOMY, AND BOTH HIPS REPLACED.....THRs Family History of Osteoporosis: YES, MOTHER BROKE HIP Postmenopausal woman: TOTAL HYST AT AGE 35 YRS OLD Take estrogen and/or progesterone medications: YES, IN PAST FOR ABOUT 10 YRS, NONE NOW....HX LT BR CA Poor Health: HX OF RADIATION, LT BREAST CANCER 2019 Hyperparathyroidism: NO Adrenal Insufficiency: NO MEDICATIONS: Additional Medications: ARIMIDEX FOR LT BR CA, VIT D, METHOTREXATE FOR RA Additional History: HX OF LT BR CANCER 2019, BILAT THRs, AND LAMINECTOMY L4 AND L5, HX OF RADIATION, RA, EXAM MEASUREMENTS: Bone mineral densitometry was performed using the [employer] System. Bone mineral density as measured about the Lumbar spine is: LAMINECTOMY L4 AND L5 SPINE NOT SCANNED BILAT THRs....HIPS NOT SCANNED, BOTH REPLACED Bone mineral density about the L Wrist (g/cm2): 0.477 T Score values are as follows: -----Dist. R+U: -3.1 -----Prox. R+U: -1.4 -----Radius total: -2.9 Bone mineral density FIRST BONE DENSITY AT [facility] FRAX%s: The graph provided illustrates a chance for a major osteoporotic fx and a chance for the hips probability for fx in 10 years time. NO FRAX.....BOTH HIPS REPLACED.... IMPRESSION: Osteoporosis (T Score less than -2.5). There is increased fracture risk and therapy is usually indicated based on age. Re-Screen 1-2 years. NOTE: T-SCORE=SD OF THE YOUNG ADULT MEAN.
== END | disposition home or self-care (01) ==
LOC: RADBDWWP 09:47
PROVIDERS: ATTEND Internal Medicine Hematology & Oncology
DX: M81.0 Age-related osteoporosis without current pathological fracture (principal); Z78.0 Asymptomatic menopausal state
CPT/HCPCS: 77081

== ENCOUNTER → 2021-09-01 | Outpatient (CLI) | payer MEDICARE, BC ==
--- NOTE | 2021-09-01 14:00 | MM ---
Reason for Exam: Additional evaluation requested from prior study. Last mammogram was performed 1 year(s) and 1 month(s) ago. Patient History: Menarche at age 13. First Full-Term at age 21. Left ovary removed at age 37. Right ovary removed at age 37. Hysterectomy at age 37. Postmenopausal. Breast cancer, left, age 74. 12/11/2019, Lumpectomy on the Left side. 12/11/2019, Malignant Core Biopsy on the left side. 12/11/2019, Malignant Core Biopsy on the left side. 09/19/2019, Malignant Core Biopsy on the left side. Prior Study Comparison: 09/06/2019 Screening Mammogram, Unknown. 09/19/2019 Screening Mammogram, Unknown. 12/11/2019 Screening Mammogram, Unknown. 08/19/2020 Bilateral Diagnostic Mammogram, [facility]. 02/26/2021 Left Diagnostic Mammogram, [facility]. Tissue Density: The breast tissue is heterogeneously dense. This may lower the sensitivity of mammography. Findings: Analyzed By CAD. Postsurgical and post treatment changes left breast. Increasing calcifications in a linear configuration anterior left breast. This appears to be at the margin of the surgical soft tissue anastomosis and we suspect calcifications relating to some fat necrosis. Continued follow-up is recommended. Benign oil cyst calcification right breast. No significant change otherwise seen. Overall Assessment: Probably benign, BI-RAD 3 Management: Diagnostic Mammogram of the left breast in 6 months. 1. Continued short interval follow-up diagnostic left breast mammogram to assess for suspected evolving posttreatment change. 2. Patient should continue monthly self breast exams. A clinical breast exam by your physician is recommended on an annual basis. 3. This exam should not preclude additional follow-up of suspicious palpable abnormalities. Electronically signed and approved by: Regi Jaeger M.D. Radiologist
== END | disposition home or self-care (01) ==
LOC: RADMAMWWP 13:01
PROVIDERS: ATTEND Surgery
DX: R92.8 Other abnormal and inconclusive findings on diagnostic imaging of breast (principal); Z85.3 Personal history of malignant neoplasm of breast; Z78.0 Asymptomatic menopausal state
CPT/HCPCS: 77066; G0279; 77062

== ENCOUNTER → 2021-09-10 | Outpatient (CLI) | payer MEDICARE, BC ==
[2021-09-10 11:47] VITALS: BP 145/82; PULSE 92; RESP 17; TEMP 98.4
--- NOTE | 2021-09-10 12:13 | P.PN ---
Subjective Progress Note Date: 09/10/21 Principal diagnosis: left bresat DCIS eft breast DCIS Terra is a 75-year-old white female initially seen for Dr. Aguiar who had a routine mammogram performed on 08-17-19. This showed an area of concern in the left breast for which additional views were recommended. These were performed on 7920. Loosely grouped calcifications were noted in the middle depth centrally on the left for which stereotactic core biopsy was recommended. Patient did not feel any lumps masses or nodules in her breast. She had no recent history of any trauma or infection in the breast. she had a stereotactic core biopsy left breast. 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 She was scheduled for arthroscopic knee surgery MS her breast surgery was delayed until November 2019. On 12-11-19 she had a lumpectomy and SNB. At that time at the lumpectomy site DCIS was noted adjacent to the [place] lateral margin 0.2 mm away from the 8 and the patient was noted to have 1 lymph node negative for malignancy. Her case was reviewed with Dr. Polanco and it was felt that the patient did not need reexcision. She did have radiation therapy and finished at the end of January 2020. She saw DR. Monte and was started on tamoxifen. She is not concerned about any new lumps masses or nodules in either breast. She did not tolerated the tamoxifen and was started on Arimidex in 12-18. She had a bilateral mammogram on 08-19-20 which was reviewed with radiology, Dr. Lau which did not show any lesions of concern in the right breast, however in the left breast there were faint grouping of calcifications in the upper retroareolar area for which six-month follow-up was recommended. Left breast mammogram on 02-26-21 Calcifications felt to have a coarse appearance and this was a BIRAD 3, repeat bilateral mammogram in 6 months. Patient is not complaining of any new lumps masses or nodules of concern in either breast. Patient's clinic note from Dr. Monte on was reviewed. 09-10-21 The patient had a bilateral mammogram on 09-01-21. This revealed calcifications in alinear fashion in the left breast felt to be post op changes. No lesions noted in the right breast. Note from 06-05-21 Dr. Monte noted; The patient on underwent a lumpectomy and sentinel node biopsy which revealed a 1 x 0.3 cm area of DCIS grade 2 lymph node negative She completed radiation therapy and . She was initially started on tamoxifen but changed to anastrozole. She is tolerating the anastrozole at this time. She is presently on fosomax and calcium. She has intermittinat pain in her left breast, no new lumps masses or nodules in either breast. Caffeine: 1 diet coke/day Nicotine: Negative iris-bromine: Rarely Family history: 1. Negative patient: DCIS Hormonal history: Menarche: 13 , 2 miscarriages, first born at 21, breast fed: none menopause: hysterectomy at 39, took ovaries; done for endometriosis BCP: 5 years hormones: estrace for hot flashes in the past, not regularly twice a week; been on this for two years; took hormones after hysterectomy for a year Surgical history: 1. Total abdominal hysterectomy 2.bilateral hip replacement 3. knee replacement, right 4. 5. appyendectomy 6. laminectomy 7. salivary gland on the right removed with stones 8. left bresat lumpectomy and SNB; 12-11-19 9. left knee replacement in October 2019 Medical history: 1. Rheumatoid arthritis Social history: Smoking: Negative Alcohol: Negative Drugs: Negative - Constitutional Constitutional: Reports sweats - EENT Eyes: denies blurred vision, denies pain Ears, nose, mouth and throat: Denies headache, Denies sore throat - Breasts Breasts: bilateral: as per HPI - Cardiovascular Cardiovascular: Denies chest pain, Denies shortness of breath - Respiratory Respiratory: Denies cough - Gastrointestinal Gastrointestinal: Denies abdominal pain, Denies diarrhea, Denies nausea, Denies vomiting - Menstruation Menstruation: Reports post hysterectomy - Musculoskeletal Comment: arthritis Arthroscopic surgery left knee for torn meniscus 11/09/2019 - Integumentary Integumentary: Denies pruritus, Denies rash - Neurological Neurological: Denies numbness, Denies weakness - Psychiatric Psychiatric: Denies anxiety, Denies depression - Endocrine Endocrine: Denies fatigue, Denies weight change - Hematologic/Lymphatic Comment: none - Allergic/Immunologic Allergic/Immunologic: Reports as per HPI Objective - Vital Signs Vital signs: Vital Signs Temp 98.4 F 09/10/21 11:45 Pulse 92 09/10/21 11:45 Resp 17 09/10/21 11:45 BP 145/82 09/10/21 11:45 Pulse Ox 98 09/10/21 11:45 FiO2 Intake & Output 09/09/21 09/10/21 09/10/21 18:59 06:59 18:59 Weight 65.317 kg - Exam BMI: 24.7 - Constitutional General appearance: Present: cooperative - EENT Eyes: Present: EOMI ENT: Present: hearing grossly normal - Neck Neck: Present: normal ROM - Respiratory Respiratory: bilateral: CTA - Cardiovascular Rhythm: regular Heart sounds: normal: S1, S2 - Integumentary Integumentary: Present: normal turgor - Musculoskeletal Musculoskeletal: Present: gait normal - Psychiatric Psychiatric: Present: A&O x's 3, appropriate affect, intact judgment & insight - Additional findings Additional findings: Breast Exam: BRA: 36C inspection: Post op and postradiation changes left breast Palpation: Right breast: Multiple positional exam fibrocystic changes no dominant masses or notches of concern Right axilla: No adenopathy of concern Left breast: Postop from post radiation changes no discrete dominant masses or nodules of concern Left axilla: No adenopathy of concern Between the right and left breast just inferior to the breast there is approximately a 2 x 1 cm soft tissue nodule which may be consistent with a sebaceous cyst Assessment and Plan Assessment: Impression: DCIS left breast status post surgery, radiation therapy, and patient presently on anastrozole No evidence of recurrent cancer Recent bilateral mammogram performed on 7521 revealed some calcifications in the left breast for which repeat mammogram in 6 months was recommended Probable sebaceous cyst between the breast Plan: Repeat left breast mammogram in 6 months with physician exam at that time Resection of sebaceous cyst in the operating room Continue anastrozole and follow-up with medical oncology Continue follow-up with radiation oncology Cc:
== END ==
LOC: WWCWWP 11:35
PROVIDERS: ATTEND Surgery
DX: Z08 Encounter for follow-up examination after completed treatment for malignant neoplasm (principal); Z85.3 Personal history of malignant neoplasm of breast; R92.1 Mammographic calcification found on diagnostic imaging of breast; Z79.811 Long term (current) use of aromatase inhibitors; Z98.890 Other specified postprocedural states; M06.9 Rheumatoid arthritis, unspecified; Z88.2 Allergy status to sulfonamides; Z88.5 Allergy status to narcotic agent

== ENCOUNTER → 2021-11-12 | Outpatient (CLI) | payer MEDICARE, BC ==
[2021-11-12 16:06] VITALS: BP 143/92; PULSE 80; RESP 18; TEMP 98.7
--- NOTE | 2021-11-12 16:20 | P.PN ---
Subjective Progress Note Date: 11/12/21 Principal diagnosis: sebaceous cyst Terra is a 75 year old white female status post left breast lumpectomy on 12-11-19 for DCIS. She had a SNB which was (-). She completed radiation therapy on 02/16. She was started on Tamoxifen but changed to Anastrazole. Her last bilateral mammogram was on 09-01-21. repeat left breast mammogram in 6 months. There is a soft tissue nodule between her breast consistent with a sebaceous cyst. Caffeine: 1 diet coke/day Nicotine: Negative iris-bromine: Rarely Family history: 1. Negative patient: DCIS Hormonal history: Menarche: 13 , 2 miscarriages, first born at 21, breast fed: none menopause: hysterectomy at 39, took ovaries; done for endometriosis BCP: 5 years hormones: estrace for hot flashes in the past, not regularly twice a week; been on this for two years; took hormones after hysterectomy for a year Surgical history: 1. Total abdominal hysterectomy 2.bilateral hip replacement 3. knee replacement, right 4. 5. appyendectomy 6. laminectomy 7. salivary gland on the right removed with stones 8. left bresat lumpectomy and SNB; 12-11-19 9. left knee replacement in October 2019 Medical history: 1. Rheumatoid arthritis Social history: Smoking: Negative Alcohol: Negative Drugs: Negative - Constitutional Constitutional: Reports sweats - EENT Eyes: denies blurred vision, denies pain Ears, nose, mouth and throat: Denies headache, Denies sore throat - Breasts Breasts: bilateral: as per HPI - Cardiovascular Cardiovascular: Denies chest pain, Denies shortness of breath - Respiratory Respiratory: Denies cough - Gastrointestinal Gastrointestinal: Denies abdominal pain, Denies diarrhea, Denies nausea, Denies vomiting - Menstruation Menstruation: Reports post hysterectomy - Musculoskeletal Comment: arthritis Arthroscopic surgery left knee for torn meniscus 11/09/2019 - Integumentary Integumentary: Denies pruritus, Denies rash - Neurological Neurological: Denies numbness, Denies weakness - Psychiatric Psychiatric: Denies anxiety, Denies depression - Endocrine Endocrine: Denies fatigue, Denies weight change - Hematologic/Lymphatic Comment: none - Allergic/Immunologic Allergic/Immunologic: Reports as per HPI Objective - Vital Signs Vital signs: Vital Signs Temp 98.7 F 11/12/21 16:02 Pulse 80 11/12/21 16:02 Resp 18 11/12/21 16:02 BP 143/92 11/12/21 16:02 Pulse Ox 98 11/12/21 16:02 FiO2 Intake & Output 11/11/21 11/12/21 11/12/21 18:59 06:59 18:59 Weight 65.771 kg - Constitutional General appearance: Present: cooperative - EENT Eyes: Present: EOMI ENT: Present: hearing grossly normal - Neck Neck: Present: normal ROM - Respiratory Respiratory: bilateral: CTA - Cardiovascular Rhythm: regular Heart sounds: normal: S1, S2 - Integumentary Integumentary: Present: normal turgor - Musculoskeletal Musculoskeletal: Present: gait normal - Psychiatric Psychiatric: Present: A&O x's 3, appropriate affect, intact judgment & insight - Additional findings Additional findings: Breast Exam: BRA: 36C Inspection: post op and post radiation changes left breast Palpation: Right breast: no domoniate masses or nodules of concern right axilla: no adenopathy of concern left breast: post op cahnges no lesions of concern left axilla: no adenopathy of concern between the breast there is a 2 by 1 cm soft tissue lesion Assessment and Plan Assessment: Impression: DCIS left breast status post lumpectomy, radiation therapy, patient presently on anastrozole No evidence of recurrent cancer Soft tissue mass between right and left breast Plan: Repeat left breast mammogram in January with examination at that time Resection of soft tissue mass between the breast and the operating room Continue anastrozole Continue follow-up with radiation oncology Medical clearance from Dr. Watters CC: Dr. Watters
== END ==
LOC: WWCWWP 15:52
PROVIDERS: ATTEND Surgery
DX: Z08 Encounter for follow-up examination after completed treatment for malignant neoplasm (principal); Z85.3 Personal history of malignant neoplasm of breast; Z98.890 Other specified postprocedural states; M06.9 Rheumatoid arthritis, unspecified; Z79.811 Long term (current) use of aromatase inhibitors; Z88.5 Allergy status to narcotic agent; Z88.2 Allergy status to sulfonamides

== ENCOUNTER 2021-11-24 07:12 | Day surgery (SDC) | payer MEDICARE, BC ==
[2021-11-24 08:00] VITALS: TEMP 96.1
[2021-11-24 08:09] LABS: Glucose,Whole Blood 102 mg/dL (70-110)
[2021-11-24] MEDS ORDERED: LACTATED RINGERS 1,000 ML IV ONE ×2 (08:10)
[2021-11-24] MEDS ORDERED: ONDANSETRON 4 MG/2 ML VIAL ONE (08:13)
[2021-11-24] MEDS ORDERED: DEXAMETHASONE SOD PHOSPHATE 4 MG/ML 1 ML VIAL IVP ONE (08:16)
[2021-11-24] MEDS ORDERED: HEPARIN SODIUM,PORCINE/PF 5,000 UNIT/0.5 ML SYRINGE SQ ONE (08:21)
[2021-11-24] MEDS ORDERED: fentaNYL (PF) 50 MCG/ML 2 ML AMP ONE (08:26)
[2021-11-24] MEDS ORDERED: MIDAZOLAM 2 MG/2 ML VIAL ONE (08:26)
[2021-11-24] MEDS ORDERED: PROPOFOL 10 MG/ML 20 ML VIAL IV ONE (08:26)
[2021-11-24] MEDS ORDERED: SODIUM CHLORIDE 0.9% 50 ML with ceFAZolin 2,000 MG IV ONE ×2 (08:29)
[2021-11-24] MEDS ORDERED: LIDOCAINE 1% INJ 10MG/ML (20 ML MDV) SQ ONE (09:00)
--- NOTE | 2021-11-24 09:25 | P.OP ---
Date of Procedure: 11/24/21 Preoperative Diagnosis: Sebaceous cyst between the breast Postoperative Diagnosis: Same Procedure(s) Performed: Excision of sebaceous cyst Anesthesia: MAC Surgeon: Marylin Alexander Estimated Blood Loss (ml): 5 IV fluids (ml): 600 Pathology: other (Sebaceous cyst) Condition: stable Disposition: same day Indications for Procedure: Enlarging sebaceous cyst Operative Findings: Sebaceous cyst between breast Description of Procedure: The patient was brought to the operating room. The area of concern was prepped and draped in a sterile fashion following sedation. 15 mL of 1% lidocaine was used to anesthetize the area of concern. Incision was made over the area. Using sharp dissection dissection was performed around the cystic structure. This was performed down into the subcutaneous tissue. The cyst was approximately 2 cm in size. The area was removed. It was opened during the dissection and sebum was present. This was irrigated well from the area. After assured that hemostasis was attained the deep tissues were closed using 3-0 Vicryl suture. The skin was closed using interrupted nylon sutures. The patient tolerated procedure in stable condition. [facility]
--- NOTE | 2021-11-24 09:27 | P.DS ---
Providers Attending physician: Marylin Alexander Primary care physician: Ayad Kan MD Plan - Discharge Summary Discharge Rx Participant: No New Discharge Prescriptions: No Action metHOTREXate sodium [Methotrexate] 20 mg PO FR rOPINIRole HCL [Requip] 0.5 mg PO HS SUMAtriptan succinate [Imitrex] 25 mg PO BID PRN PRN Reason: migraines Folic Acid 1 mg PO QAM Calcium Carbonate [Calcium] 1,200 mg PO DAILY Anastrozole [Arimidex] 1 mg PO DAILY Alendronate Sodium [Fosamax] 70 mg PO WEEKLY Discharge Medication List metHOTREXate sodium [Methotrexate] 20 mg PO FR 11/03/15 [History] Folic Acid 1 mg PO QAM 04/29/17 [History] SUMAtriptan succinate [Imitrex] 25 mg PO BID PRN 04/29/17 [History] rOPINIRole HCL [Requip] 0.5 mg PO HS 04/29/17 [History] Anastrozole [Arimidex] 1 mg PO DAILY 03/12/21 [History] Alendronate Sodium [Fosamax] 70 mg PO WEEKLY 09/10/21 [History] Calcium Carbonate [Calcium] 1,200 mg PO DAILY 09/10/21 [History] Follow up Appointment(s)/Referral(s): Marylin Alexander MD [STAFF PHYSICIAN] - 10 Days Activity/Diet/Wound Care/Special Instructions: do not drive today may shower after 48 hours Discharge Disposition: HOME SELF-CARE
[2021-11-24 10:07] VITALS: BP 136/79; PULSE 87; RESP 16
== END 2021-11-24 10:55 | disposition home or self-care (01) ==
LOC: OR 07:12
PROVIDERS: ATTEND Surgery
DX: N60.89 Other benign mammary dysplasias of unspecified breast (principal); L72.3 Sebaceous cyst; Z85.3 Personal history of malignant neoplasm of breast; Z90.710 Acquired absence of both cervix and uterus; Z96.643 Presence of artificial hip joint, bilateral; Z90.49 Acquired absence of other specified parts of digestive tract; Z96.653 Presence of artificial knee joint, bilateral; Z98.890 Other specified postprocedural states; Z90.12 Acquired absence of left breast and nipple; Z88.2 Allergy status to sulfonamides; Z79.899 Other long term (current) drug therapy
CPT/HCPCS: 11403; 88304; J2250; J1100; J2405; J0690; J2001; J3010; J2704; J1644

== ENCOUNTER → 2021-12-10 | Outpatient (CLI) | payer MEDICARE, BC ==
--- NOTE | 2021-12-10 14:36 | P.PN ---
Progress Note - Text Progress Note Date: 12/10/21 Terra [place] [address]. Surgeon: Clean and dry Plan: Sutures removed Patient will follow-up for breast evaluation Bilateral mammogram January 2022 with appointment at that time Continue to follow with Dr. Monte CC: Dr. Kan
[2021-12-10 14:42] VITALS: BP 120/74; PULSE 103; RESP 16
== END ==
LOC: WWCWWP 14:14
PROVIDERS: ATTEND Surgery
DX: L72.0 Epidermal cyst (principal); Z88.5 Allergy status to narcotic agent; Z88.2 Allergy status to sulfonamides; E66.9 Obesity, unspecified; Z68.24 Body mass index [BMI] 24.0-24.9, adult

== ENCOUNTER → 2022-03-01 | Outpatient (CLI) | payer MEDICARE, BC ==
--- NOTE | 2022-03-01 10:19 | MM ---
Reason for Exam: Hx of breast cancer, conservation therapy. Last screening mammogram was performed 6 month(s) ago. Patient History: Menarche at age 13. First Full-Term at age 21. Left ovary removed at age 37. Right ovary removed at age 37. Hysterectomy at age 37. Postmenopausal. Breast cancer, left, age 74. Previous DCIS pathology result. 12/11/2019, Lumpectomy on the Left side. 12/11/2019, Malignant Core Biopsy on the left side. 12/11/2019, Malignant Core Biopsy on the left side. 09/19/2019, Malignant Core Biopsy on the left side. Prior Study Comparison: 12/11/2019 Screening Mammogram, Unknown. 08/19/2020 Bilateral Diagnostic Mammogram, [facility]. 02/26/2021 Left Diagnostic Mammogram, [facility]. 09/01/2021 Bilateral MG 3D diag mammo w/cad JUAN PABLO, [facility]. Tissue Density: Left: There are scattered fibroglandular densities. Findings: Analyzed By CAD. Postsurgical and posttreatment changes left breast. Fat necrosis calcifications around the transplanted nipple. Faint calcification central left cc view may be minimally increased. On magnification views, corresponding cystic (fat density) area suggesting developing fat necrosis. Probably located inferiorly on the lateral view but not as well seen. Given the slight increase in calcifications, additional short interval follow-up recommended. Overall Assessment: Probably benign, BI-RAD 3 Management: Diagnostic Mammogram of both breasts in 6 months. Ongoing short interval follow-up left breast and annual exam of the right breast. Patient should continue monthly self breast exams. Results were given to the patient verbally at the time of exam. Electronically signed and approved by: Regi Jaeger M.D. Radiologist
== END | disposition home or self-care (01) ==
LOC: RADMAMWWP 09:24
PROVIDERS: ATTEND Surgery
DX: Z85.3 Personal history of malignant neoplasm of breast (principal); Z78.0 Asymptomatic menopausal state; Z90.721 Acquired absence of ovaries, unilateral
CPT/HCPCS: 77065; G0279; 77061

== ENCOUNTER → 2022-03-04 | Outpatient (CLI) | payer MEDICARE, BC ==
[2022-03-04 13:11] VITALS: BP 149/78; PULSE 91; RESP 17; TEMP 97.8
--- NOTE | 2022-03-04 13:37 | P.PN ---
Subjective Progress Note Date: 03/04/22 Principal diagnosis: DCIS left breast Terra is a 75 year old white female status post left breast lumpectomy on 12-11-19 for DCIS. She had a SNB which was (-). She completed radiation therapy on 02/16. She was started on Tamoxifen but changed to Arimidex which she is tolerating. Her last bilateral mammogram was on 09-01-21. repeat left breast mammogram in 6 months. She had a left breast mammogram on 03-01-22; this was BIRAD 3, postsurgical and posttreatment changes noted in the left breast. Fat necrosis calcifications around the area of surgery. Faint calcification central left CC view were questionably minimally increased. On mag views corresponding fat density area suggesting development of fat necrosis. Repeat mammogram in 6 months is recommended. mammogram 03-01-[address] Monte reviewed 09-18-21 Caffeine: 1 diet coke/day Nicotine: Negative iris-bromine: Rarely Family history: 1. Negative patient: DCIS Hormonal history: Menarche: 13 , 2 miscarriages, first born at 21, breast fed: none menopause: hysterectomy at 39, took ovaries; done for endometriosis BCP: 5 years hormones: estrace for hot flashes in the past, not regularly twice a week; been on this for two years; took hormones after hysterectomy for a year Surgical history: 1. Total abdominal hysterectomy 2.bilateral hip replacement 3. knee replacement, right 4. 5. appyendectomy 6. laminectomy 7. salivary gland on the right removed with stones 8. left bresat lumpectomy and SNB; 12-11-19 9. left knee replacement in October 2019 Medical history: 1. Rheumatoid arthritis 2. left wrist fracture Social history: Smoking: Negative Alcohol: Negative Drugs: Negative - Constitutional Constitutional: Reports sweats - EENT Eyes: denies blurred vision, denies pain Ears, nose, mouth and throat: Denies headache, Denies sore throat - Breasts Breasts: bilateral: as per HPI - Cardiovascular Cardiovascular: Denies chest pain, Denies shortness of breath - Respiratory Respiratory: Denies cough - Gastrointestinal Gastrointestinal: Denies abdominal pain, Denies diarrhea, Denies nausea, Denies vomiting - Menstruation Menstruation: Reports post hysterectomy - Musculoskeletal Comment: arthritis Arthroscopic surgery left knee for torn meniscus 11/09/2019 - Integumentary Integumentary: Denies pruritus, Denies rash - Neurological Neurological: Denies numbness, Denies weakness - Psychiatric Psychiatric: Denies anxiety, Denies depression - Endocrine Endocrine: Denies fatigue, Denies weight change - Hematologic/Lymphatic Comment: none - Allergic/Immunologic Allergic/Immunologic: Reports as per HPI Objective - Vital Signs Vital signs: Vital Signs Temp 97.8 F 03/04/22 13:09 Pulse 91 03/04/22 13:09 Resp 17 03/04/22 13:09 BP 149/78 03/04/22 13:09 Pulse Ox 96 03/04/22 13:09 FiO2 Intake & Output 03/03/22 03/04/22 03/04/22 18:59 06:59 18:59 Weight 63.503 kg - Constitutional General appearance: Present: cooperative - EENT Eyes: Present: EOMI ENT: Present: hearing grossly normal - Neck Neck: Present: normal ROM - Respiratory Respiratory: bilateral: CTA - Cardiovascular Rhythm: regular Heart sounds: normal: S1, S2 - Gastrointestinal General gastrointestinal: Present: soft - Integumentary Integumentary: Present: normal turgor - Musculoskeletal Musculoskeletal: Present: gait normal - Psychiatric Psychiatric: Present: A&O x's 3, appropriate affect, intact judgment & insight - Additional findings Additional findings: Breast Exam: BRA: 36C Inspection: post op and post radiation changes left breast Palpation: Right breast: no domoniate masses or nodules of concern right axilla: no adenopathy of concern left breast: post op cahnges no lesions of concern left axilla: no adenopathy of concern Assessment and Plan Assessment: Impression: DCIS left breast status post lumpectomy, radiation therapy, patient presently on Arimidex No evidence of recurrent cancer Plan: Repeat bilateral mammogram in 6 months and than follow up Continue arimidex Continue follow-up with radiation oncology CC: Dr. Kan
== END ==
LOC: WWCWWP 12:54
PROVIDERS: ATTEND Surgery
DX: Z90.12 Acquired absence of left breast and nipple (principal); M06.9 Rheumatoid arthritis, unspecified; Z88.5 Allergy status to narcotic agent; Z91.013 Allergy to seafood

== ENCOUNTER → 2022-08-30 | Outpatient (CLI) | payer MEDICARE, BC ==
--- NOTE | 2022-08-30 10:21 | MM ---
Reason for Exam: Additional evaluation requested from prior study. Last screening mammogram was performed 12 month(s) ago. Patient History: Menarche at age 13. First Full-Term at age 21. Left ovary removed at age 37. Right ovary removed at age 37. Hysterectomy at age 37. Postmenopausal. Breast cancer, left, age 74. Previous DCIS pathology result. 12/11/2019, Lumpectomy on the Left side. 12/11/2019, Malignant Core Biopsy on the left side. 12/11/2019, Malignant Core Biopsy on the left side. 09/19/2019, Malignant Core Biopsy on the left side. Prior Study Comparison: 09/06/2019 Screening Mammogram, Unknown. 09/19/2019 Screening Mammogram, Unknown. 12/11/2019 Screening Mammogram, Unknown. 08/19/2020 Bilateral Diagnostic Mammogram, [facility]. 02/26/2021 Left Diagnostic Mammogram, [facility]. 09/01/2021 Bilateral MG 3D diag mammo w/cad JUAN PABLO, [facility]. 03/01/2022 Left MG 3D diag mammo w/cad LT, [facility]. Tissue Density: There are scattered fibroglandular densities. Findings: Analyzed By CAD. Pattern appears stable. There is asymmetry in the anterior left breast, present previously. Benign stable appearing calcifications present bilaterally. No suspicious groups of microcalcifications, spiculated or lobular masses, architectural distortion or other secondary signs of malignancy are mammographically apparent. Overall Assessment: Benign, BI-RAD 2 Management: Diagnostic Mammogram of the left breast in 1 year. A negative mammogram report should not preclude additional follow up of suspicious palpable abnormalities. Patient should continue monthly self breast exam. A clinical breast exam by your physician is recommended on an annual basis and results should be correlated with mammographic findings. Electronically signed and approved by: Juan C Meade D.O. Radiologis
== END | disposition home or self-care (01) ==
LOC: RADMAMWWP 09:36
PROVIDERS: ATTEND Surgery
DX: R92.8 Other abnormal and inconclusive findings on diagnostic imaging of breast (principal); Z85.3 Personal history of malignant neoplasm of breast; Z78.0 Asymptomatic menopausal state
CPT/HCPCS: 77066; G0279; 77062

== ENCOUNTER → 2022-09-10 | Outpatient (CLI) | payer MEDICARE, BC ==
[2022-09-10 11:14] VITALS: BP 133/78; PULSE 94; RESP 18; TEMP 98.1
--- NOTE | 2022-09-10 11:31 | P.PN ---
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 She had a SNB which was (-). She completed radiation therapy on 02/16. She was started on Tamoxifen but changed to Arimidex which she is tolerating. Her last bilateral mammogram was on 08-30-22. Which was BIRAD 2. She had a left breast mammogram on 03-01-22; this was BIRAD 3, postsurgical and posttreatment changes noted in the left breast. Fat necrosis calcifications around the area of surgery. Faint calcification central left CC view were questionably minimally increased. On mag views corresponding fat density area suggesting development of fat necrosis. Repeat mammogram in 6 months is recommended. Caffeine: 1 diet coke/day Nicotine: Negative iris-bromine: Rarely Family history: 1. Negative patient: DCIS Hormonal history: Menarche: 13 , 2 miscarriages, first born at 21, breast fed: none menopause: hysterectomy at 39, took ovaries; done for endometriosis BCP: 5 years hormones: estrace for hot flashes in the past, not regularly twice a week; been on this for two years; took hormones after hysterectomy for a year Surgical history: 1. Total abdominal hysterectomy 2.bilateral hip replacement 3. knee replacement, right 4. 5. appyendectomy 6. laminectomy 7. salivary gland on the right removed with stones 8. left bresat lumpectomy and SNB; 12-11-19 9. left knee replacement in October 2019 Medical history: 1. Rheumatoid arthritis 2. left wrist fracture Social history: Smoking: Negative Alcohol: Negative Drugs: Negative - Constitutional Constitutional: Reports sweats - EENT Eyes: denies blurred vision, denies pain Ears, nose, mouth and throat: Denies headache, Denies sore throat - Breasts Breasts: bilateral: as per HPI - Cardiovascular Cardiovascular: Denies chest pain, Denies shortness of breath - Respiratory Respiratory: Denies cough - Gastrointestinal Gastrointestinal: Denies abdominal pain, Denies diarrhea, Denies nausea, Denies vomiting - Menstruation Menstruation: Reports post hysterectomy - Musculoskeletal Comment: arthritis Arthroscopic surgery left knee for torn meniscus 11/09/2019 - Integumentary Integumentary: Denies pruritus, Denies rash - Neurological Neurological: Denies numbness, Denies weakness - Psychiatric Psychiatric: Denies anxiety, Denies depression - Endocrine Endocrine: Denies fatigue, Denies weight change - Hematologic/Lymphatic Comment: none - Allergic/Immunologic Allergic/Immunologic: Reports as per HPI Objective - Vital Signs Vital signs: Vital Signs Temp 98.1 F 09/10/22 11:12 Pulse 94 09/10/22 11:12 Resp 18 09/10/22 11:12 BP 133/78 09/10/22 11:12 Pulse Ox 98 09/10/22 11:12 FiO2 Intake & Output 09/09/22 09/10/22 09/10/22 18:59 06:59 18:59 Weight 63.503 kg - Constitutional General appearance: Present: cooperative - EENT Eyes: Present: EOMI ENT: Present: hearing grossly normal - Neck Neck: Present: normal ROM - Respiratory Respiratory: bilateral: CTA - Cardiovascular Rhythm: regular Heart sounds: normal: S1, S2 - Gastrointestinal General gastrointestinal: Present: soft - Integumentary Integumentary: Present: normal turgor - Musculoskeletal Musculoskeletal: Present: gait normal - Psychiatric Psychiatric: Present: A&O x's 3, appropriate affect, intact judgment & insight - Additional findings Additional findings: Breast Exam: BRA: 36C Inspection: post op and post radiation changes left breast Palpation: Right breast: no domoniate masses or nodules of concern right axilla: no adenopathy of concern left breast: post op changes no lesions of concern left axilla: no adenopathy of concern Assessment and Plan Assessment: Impression: DCIS left breast status post lumpectomy, radiation therapy, patient presently on Arimidex No evidence of recurrent cancer Plan: Repeat bilateral mammogram in one year Continue arimidex Continue follow-up with radiation oncology Appear 6 months for examination CC: Dr. Kan
== END ==
LOC: WWCWWP 10:52
PROVIDERS: ATTEND Surgery
DX: Z85.3 Personal history of malignant neoplasm of breast (principal); D05.12 Intraductal carcinoma in situ of left breast; M06.9 Rheumatoid arthritis, unspecified; Z92.3 Personal history of irradiation; Z88.2 Allergy status to sulfonamides; Z88.5 Allergy status to narcotic agent

== ENCOUNTER → 2022-11-09 | Outpatient (CLI) | payer MEDICARE, BC ==
[2022-11-09 12:08] LABS: INR 0.9 (<1.2); Partial Thromboplastin Time 24.6 sec (22.0-30.0); Prothrombin Time 9.8 sec (9.0-12.0)
[2022-11-09 15:31] LABS: Appearance,Urine Clear (Clear); Bilirubin,Urine Negative (Negative); Blood,Urine Trace (Negative); Color,Urine Yellow (Yellow); Ketones,Urine Negative (Negative); Nitrite,Urine Negative (Negative); PH, Urine 5.5; Specific Gravity,Urine 1.006 (1.001-1.030); Urobilinogen,Urine 0.2 E.U./DL
[2022-11-09 15:38] LABS: Bacteria,Urine None Seen (None Seen)
[2022-11-09 16:45] LABS: ALT 19 U/L (8-44); AST 23 U/L (13-35); Albumin 4.4 d/dL (3.8-4.9); Albumin/Globulin Ratio 1.69 Ratio (1.60-3.17); Alkaline Phosphatase 41 U/L (41-126); BUN/Creat Ratio 17.22 Ratio (12.00-20.00); Blood Urea Nitrogen 15.5 mg/dL (9.0-27.0); Calcium 9.9 mg/dL (8.7-10.3); Carbon Dioxide 27.7 mmol/L (21.6-31.8); Chloride 102 mmol/L (96-109); Globulin 2.6 d/dL (1.6-3.3); Glucose 93 mg/dL (70-110); Potassium 4.7 mmol/L (3.5-5.5); Sodium 140 mmol/L (135-145); Total Bilirubin 0.5 mg/dL (0.3-1.2)
[2022-11-09 16:46] LABS: HCT 39.1 % (37.2-46.3); HGB 12.5 d/dL (12.0-15.0); MCH 31.1 pg (27.0-32.0); MCV 97.3 FL (80.0-97.0); Mean Platelet Volume 10.2 FL (9.5-12.2); NRBC Per 100 WBC 0 X 10*3/uL (0.00-0.01); Platelet Count 319 X 10*3/uL (140-440); RBC 4.02 X 10*6/uL (4.10-5.20); RDW 14.1 % (11.5-14.5); WBC 10.07 X 10*3/uL (4.50-10.00)
== END | disposition home or self-care (01) ==
LOC: LABPAT 10:47
PROVIDERS: ATTEND Orthopaedic Surgery
DX: Z01.812 Encounter for preprocedural laboratory examination (principal); M17.12 Unilateral primary osteoarthritis, left knee
CPT/HCPCS: 80053; 81001; 85027; 85610; 85730; 87070

== ENCOUNTER 2022-11-16 07:26 | Day surgery (SDC) | payer MEDICARE, BC ==
[~2022-11-16 07:26] MED LIST changes: +ACETAMINOPHEN TAB 500 MG TAB PO PRN; -ALPRAZolam 0.25 MG TAB ONE; -DEXAMETHASONE SOD PHOSPHATE 10 MG/ML 1 ML VIAL IV ONE; +DEXAMETHASONE SOD PHOSPHATE 4 MG/ML 1 ML VIAL IV ONE; +GABAPENTIN 300 MG CAP PO PRN; -HEPARIN SODIUM,PORCINE 5,000 UNIT/ML 1 ML VIAL SQ ONE; +LACTATED RINGERS 1,000 ML IV SCH; -LIDOCAINE 1% (10MG/ML) FOR IV START INTRADERMA PRN; -LIDOCAINE 1% INJ 10MG/ML (20 ML MDV) ONE; -LIDOCAINE 1% INJ 10MG/ML (20 ML MDV) SQ ONE; +MELOXICAM 7.5 MG TAB PO PRN; -MIDAZOLAM 2 MG/2 ML VIAL ONE; -PHENYLEPHRINE-0.9% NACL SYG 1 MG/10 ML SYRINGE ONE; -PROPOFOL 10 MG/ML 20 ML VIAL IV ONE; -Pre Op ABX Message 1 EACH MISC MISCELLANE ONE; -SUCCINYLCHOLINE CHLORIDE 100 MG/5 ML SYR IV ONE; +TRANEXAMIC 1,000 MG/100ML-NACL 1,000 MG in SALINE 1 100ML.BAG IVPB PRN; -fentaNYL (PF) 50 MCG/ML 2 ML AMP ONE
[2022-11-16] MEDS ORDERED: fentaNYL (PF) 50 MCG/ML 2 ML AMP IVP ONE (08:45)
[2022-11-16] MEDS ORDERED: MIDAZOLAM 2 MG/2 ML VIAL IVP ONE (08:45)
[2022-11-16] MEDS ORDERED: TRANEXAMIC 1,000 MG/100ML-NACL PREMIX BAG ONE (09:00)
[2022-11-16] MEDS ORDERED: PROPOFOL 10 MG/ML 20 ML VIAL IV ONE (09:00)
[2022-11-16] MEDS ORDERED: MIDAZOLAM 2 MG/2 ML VIAL ONE (09:00)
[2022-11-16] MEDS ORDERED: SODIUM CHLORIDE 0.9% (PF) 10 ML VIAL ONE (09:00)
[2022-11-16] MEDS ORDERED: ROPIVACAINE 5 MG/ML 30 ML VIAL ONE (09:00)
[2022-11-16] MEDS: ceFAZolin 1,000 MG in SODIUM CHLORIDE 0.9% 1,000 ML IRRIGATION ONE ×2 (09:03→15:08)
--- NOTE | 2022-11-16 10:15 | P.OP ---
Date of Procedure: 11/16/22 Preoperative Diagnosis: Severe osteoarthritis left knee Postoperative Diagnosis: Severe osteoarthritis left knee Procedure(s) Performed: Left total knee arthroplasty Implants: [employer] Journey II CR Oxinium cruciate retaining femoral component size 5, left [employer] Journey nonporous tibial baseplate size 3, left [employer] Journey II, XLPE Deep Dished articular insert, size 13 mm, Size 3-4, left [employer] Journey Zo II resurfacing patellar component, oval, 29 mm All components were cemented using Palacos R bone cement The articulation is Oxinium on polyethylene Anesthesia: spinal Surgeon: Rick Umana Software Recruiter #1: Michael Simpson Estimated Blood Loss (ml): 40 Pathology: none sent Condition: stable Disposition: PACU Indications for Procedure: The patient's knee is end-stage, and conservative management has failed. The operation of knee replacement has been discussed at length in the office, as well as potential risks and complications. These are inclusive of, but not limited to: Infection, bleeding, scarring, discomfort, stiffness, blood vessel and nerve damage, need for further surgery, failure to relieve symptoms, persistence, recurrence, or worsening of problems, loosening, dislocation, wear, blood clot, pulmonary embolism, , gait dysfunction, stiffness, and other risks as discussed in the office. Patient elects to proceed and the consent form has been signed. Operative Findings: The operative findings are consistent with severe osteoarthritis of the left knee Description of Procedure: The patient was seen in the preoperative area, the consent was reviewed and the operative site was marked with a skin marker. The patient verified the procedure and the operative site. An adductor canal pain catheter and an iPACK block were placed by anesthesia in the preoperative area. The patient was then brought to the operating room and positioned on the operating room table in the supine position. Preoperative antibiotics and a gram of tranexamic acid were given intravenously. A spinal anesthetic was administered by the anesthesia department. Care was taken to make sure that all pressure points were adequately padded. A tourniquet was placed on the upper thigh and the lower extremity was prepped with ChloraPrep and draped in usual sterile fashion. A universal time-out was then performed which confirmed the patient's name, surgical site, ALLERGIES, and consent. The lower extremity was then exsanguinated and tourniquet was inflated to 250 mmHg. A standard anterior midline approach to the knee was performed. The skin and subcutaneous tissue were sharply dissected down to the patellar tendon. A medial parapatellar arthrotomy was then performed. The knee was then extended, the patellar was everted, and the knee was flexed. The infra-patellar fat pad was removed in order to enhance exposure. The anterior horns of both menisci were excised, and a release was performed to the posterior medial aspect of the knee. On gross visual inspection, there was complete loss of articular cartilage in the medial and patellofemoral joint spaces. There was also significant cartilage damage in the lateral compartment. There were multiple periarticular osteophytes globally about the knee which were then removed with a Ronguer. The femoral canal was then opened with the 9.5 mm intramedullary drill. The 8 mm intramedullary camron was then inserted into the femoral canal with the distal femoral cutting guide set for 5 of valgus. The distal femoral cutting block was then pinned in place. The intramedullary camron was then removed, and the distal femur was then cut. The cutting block was then removed and the cut was checked for symmetry. The resected bone was then measured to co nfirm the appropriate distal femoral resection. Next, the sizing guide was then placed and set for 3 external rotation based off of the epicondylar axis and [place]'s line. Pins were then placed and the drill holes, and the femur was sized with the sizing stylus. The pins were then removed, and the sizing guide was then removed. The spikes of the appropriate size femoral block was then placed into the predrilled holes, and malleted into place. Two 45 mm pins were then placed into the fixation holes on the cutting block. An caden wing was then used to ensure there would be no notching with the anterior cut. The anterior condyles were cut without notching. The anterior chord cut was then performed, followed by the posterior cut, posterior chamfer cut, and the anterior chamfer cut. The collateral ligaments were protected during the entire process. The cutting block was then removed. Any remaining bone and osteophytes were removed from the femur with a Ronguer. Attention was then directed to the tibia. The remaining ACL was removed with a Ronguer, and the tibia was then gently subluxed forward with a large bent knee retractor. Any remaining menisci were excised. The posterior lateral corner was cauterized in order to coagulate the lateral geniculate artery. The extra medullary tibial cutting guide was then placed, set for the appropriate rotation, slope, and depth of resection. The proximal tibia cutting guide was then pinned in place. Proximal tibia was then cut and sized. A curved osteotome was then used to remove any posterior osteophytes from the distal femur. The femoral trial was placed. A narrow saw blade was then used to remove the anterior intracondylar femoral bone. The CR notch trial was then placed. The tibial trial was placed with the appropriate-sized insert. The knee was able to fully extend and flex to 130 and was stable throughout all range of motion. The knee was then extended and the patella was everted. Patella was then measured, and then using an osteotomy guide, the patella was cut at the appropriate level. The patellar component was sized. The patellar drill guide was placed and the patella was drilled. The patella trial was then placed. The knee was then taken through range of motion with the patella trial and the patella tracked normally using the no thumbs technique. The patella trial was then removed. The knee was then flexed and lug holes were drilled through the femoral trial and the femoral trial was then removed. The tibial was then re- exposed, and the tibial broach guide was then pinned in place after it was set for the appropriate rotation to allow for the most coverage without overhang. The tibia was then reamed and broached. The femoral canal was plugged with autologous bone. The cut surfaces of bone were then irrigated with pulsatile lavage. The knee was also irrigated with Irrisept solution. The components were then opened, the cement was mixed. Cement was placed on the backside of the femoral, tibial, and patellar components. Cement was then applied to the tibial surface and pressurized into the surface using finger pressurization technique. The tibial component was then applied and excess cement was removed after it was impacted securely noted to be flush with the cut surface. In similar fashion, the cement was applied to the cut femoral surface, pressurized and using finger pressurization the component was impacted in place. Excess cement was removed. The polyethylene spacer was then implanted and locked into position. Patellar component was then applied in a similar technique and the patellar clamp was used to hold patella in place while the cement hardened. The knee was held in full extension while the cement hardened. Once the cement had fully hardened, the knee was reinspected. Any other cement extrusion was removed the final range of motion testing showed range of motion from 0-130 with excellent stability, both medial and laterally and appropriate alignment of the leg. Patella tracked normally. After the cemented hardened, the tourniquet was released and hemostasis was obtained. A second gram of transexamic acid was given intravenously. The knee was again irrigated. The knee was again taken through range of motion and found to be stable throughout all range of motion of 0-130, and the patella tracked normally. The fascia was then closed with 0 Vicryl followed by #2 strata fix suture. The subcutaneous tissue was closed with 3-0 Vicryl and 3-0 strata fix. Exofin glue was used for the skin and placed with the knee in flexion. After the glue had dried, and Optafoam silver impregnated dressing was applied. A lightly compressive dressing was applied using web roll and Lux wrap. Patient was then transferred to the stretcher and taken to recovery room in stable condition. Sponge and needle counts were correct. The early childhood teacher assistant MAGGIE Cramer was required due the complexity surgery and the need for a skilled surgical corsetier. She assisted in positioning, draping, retraction, and closure of the wound.
[2022-11-16] MEDS ORDERED: ROPIVACAINE 1,100 MG, SODIUM CHLORIDE 0.9% 500 ML 330 ML, EMPTY PAIN BALL 1 EACH MISCELLANE PRN ×2 (10:59)
[2022-11-16] MEDS ORDERED: NALOXONE 0.4 MG/ML 1 ML VIAL IV PRN (11:19)
[2022-11-16] MEDS ORDERED: HYDROmorphone 0.5 MG/0.5 ML SYRINGE IVP PRN ×2 (11:22)
[2022-11-16] MEDS ORDERED: HYDROcodone/APAP 5-325MG 1 EACH TAB PO PRN (11:22)
[2022-11-16] MEDS ORDERED: hydrOXYzine pamoate 25 MG CAP PO PRN (11:22)
[2022-11-16] MEDS ORDERED: ONDANSETRON 4 MG/2 ML VIAL IVP PRN (11:22)
[2022-11-16] MEDS ORDERED: MAGNESIUM HYDROXIDE 2,400 MG/30 ML CUP PO PRN (11:22)
[2022-11-16] MEDS ORDERED: bisacodyL 10 MG SUPP RECTAL PRN (11:22)
[2022-11-16] MEDS ORDERED: SODIUM CHLORIDE 0.9% 1,000 ML IV SCH (11:30)
--- NOTE | 2022-11-16 11:40 | XR ---
EXAMINATION TYPE: XR knee limited LT DATE OF EXAM: 11/16/2022 COMPARISON: None HISTORY: Postop left knee TECHNIQUE: 2 view left knee FINDINGS: Tibial and femoral components have been placed. No acute fractures or dislocations are evid ent. Moderate joint effusion is present. Postsurgical soft tissue changes are present. IMPRESSION: 1. No acute fracture post knee replacement.
--- NOTE | 2022-11-16 12:01 | P.ANPRN ---
Procedure Note - Anesthesia - Nerve Block Performed Left Adductor Canal Infusion Time Out Performed: Yes (844) Date of Procedure: 11/16/22 Procedure Start Time: 08:45 Procedure Stop Time: 08:50 Location of Patient: PreOp Indication: Acute Post-Operative Pain, Requested by Surgeon Specifically requested for management of pain by DrMaxi: Rick Umana Sedation Type: Sedate with meaningful contact maintained Preparation: Sterile Prep Position: Supine Catheter: None Needle Types: Pajunk Needle Gauge: 21 Ultrasound used to visualize needle placement: Yes Ultrasound used to observe medication spread: Yes Injectate: 0.5% Ropivacaine (see comment for volume) (15CC + 5CC NACL PF) Blood Aspirated: No Pain Paresthesia on Injection Noted: No Resistance on Injection: Normal Image Stored and Saved: Yes Events: Uneventful and Well Tolerated
--- NOTE | 2022-11-16 12:04 | P.ANPRN ---
Procedure Note - Anesthesia - Nerve Block Performed Left iPack Single Time Out Performed: Yes (844) Date of Procedure: 11/16/22 Procedure Start Time: 08:51 Procedure Stop Time: 08:55 Location of Patient: PreOp Indication: Acute Post-Operative Pain, Requested by Surgeon Specifically requested for management of pain by DrMaxi: Rick Umana Sedation Type: Sedate with meaningful contact maintained Preparation: Sterile Prep Position: Supine Catheter: None Needle Types: Pajunk Needle Gauge: 21 Ultrasound used to visualize needle placement: Yes Ultrasound used to observe medication spread: Yes Injectate: 0.5% Ropivacaine (see comment for volume) (15CC +5 CC NACL PF) Blood Aspirated: No Pain Paresthesia on Injection Noted: No Resistance on Injection: Normal Image Stored and Saved: Yes Events: Uneventful and Well Tolerated
[2022-11-16] MEDS: HYDROmorphone 0.5 MG/0.5 ML SYRINGE IVP PRN ×3 (12:34→14:52)
[2022-11-16] MEDS ORDERED: SUMAtriptan succinate 25 MG TAB PO PRN (14:13)
[2022-11-16] MEDS: HYDROcodone/APAP 7.5-325MG 1 EACH TAB PO PRN (17:44)
--- NOTE | 2022-11-16 19:55 | CONS ---
CONSULTATION REASON FOR CONSULTATION: History of rheumatoid arthritis and other medical issues, requested by Orthopedics. HISTORY OF PRESENT ILLNESS: This is a 76-year-old woman with a past medical history of multiple medical problems including hyperlipidemia and rheumatoid arthritis, underwent left total knee arthroplasty. There is no history of any fever, rigor, chills, headache, loss of consciousness, or seizures. PAST MEDICAL HISTORY: Reviewed includes hyperlipidemia and rheumatoid arthritis. Rest of the history and rest of the chart are also reviewed. HOME MEDICATIONS: Reviewed include Pepcid. Doses and rest of the medications are reviewed. ALLERGIES: Reviewed include sulfa. FAMILY HISTORY: No history of heart disease or strokes in the family. SOCIAL HISTORY: No history of smoking or alcohol. REVIEW OF SYSTEMS: Fourteen-point review is negative except as mentioned earlier. PHYSICAL EXAMINATION: VITAL SIGNS: Pulse is 95, blood pressure 139/76, respirations 16. CHEST: Clear to auscultation. CARDIOVASCULAR: S1 and S2. ABDOMEN: Soft and nontender. NERVOUS SYSTEM: Nonfocal. LEGS: Status post left knee arthroplasty. LABORATORY DATA: Not available. ASSESSMENT: 1. Status post left total knee joint arthroplasty. 2. Rheumatoid arthritis. 3. Hyperlipidemia. 4. History of migraines. 5. Multiple medical issues. RECOMMENDATIONS AND DISCUSSION: In this 76-year-old woman presented after surgery, at this time, I recommend to continue the current medications, resume the home medications, incentive spirometry, DVT prophylaxis. Otherwise, we will follow the patient closely. The patient may be asked to follow up with primary physician in the outpatient setting. BRIDGET / ALVINN: [id number] /
[2022-11-16] MEDS: ASPIRIN 325 MG TAB PO SCH (20:04)
[2022-11-16] MEDS: FAMOTIDINE 20 MG TAB PO SCH (20:04)
[2022-11-16] MEDS ORDERED: SENNOSIDES-DOCUSATE SODIUM 1 EACH TAB PO SCH (21:00)
[2022-11-16] MEDS ORDERED: PRAVASTATIN SODIUM 20 MG TAB PO SCH (21:00)
[2022-11-17] MEDS: HYDROcodone/APAP 7.5-325MG 1 EACH TAB PO PRN ×4 (00:09→14:25)
[2022-11-17] MEDS ORDERED: PANTOPRAZOLE 40 MG TABLET PO SCH (07:30)
--- NOTE | 2022-11-17 07:34 | P.PN ---
Progress Note - Text Progress Note Date: 11/17/22 Postoperative day # 1 status post total knee arthroplasty, and adductor canal catheter placed for postoperative analgesia, currently at ropivacaine 0.2% 8 mL per hour and continuous infusion, visual analogue scale is 3/10, patient using oral pain medication for breakthrough pain. Assessment and plan= Acute postoperative pain, adductor canal catheter for pain control, pain is well controlled we'll continue the same management.
[2022-11-17] MEDS ORDERED: FOLIC ACID 1 MG TAB PO SCH (09:00)
[2022-11-17] MEDS ORDERED: ANASTROZOLE 1 MG TAB PO SCH (09:00)
[2022-11-17] MEDS ORDERED: CALCIUM CARBONATE 500 MG CHEWABLE PO SCH (09:00)
--- NOTE | 2022-11-17 09:48 | P.DS ---
Providers Attending physician: Rick Umana Consults: 11/16/22 11:22 Consult Physician Routine Consulting Provider: Essie Zuñiga Consult Reason/Comments: Postoperative medical management Do you want consulting provider notified?: Yes Primary care physician: Ayad Kan MD - Discharge Diagnosis(es) (1) Osteoarthritis of left knee Current Visit: Yes Status: Acute (2) S/P total knee arthroplasty Current Visit: No Status: Acute Hospital Course: This is a 76-year-old female with known history of degenerative arthritis of the left knee. The patient presented for evaluation as an outpatient. After discussion and consideration patient elects to proceed with total knee arthroplasty. The patient is seen preoperatively by Dr. Umana and medically cleared for surgery by their primary care physician. Patient is admitted to [facility] on 11/16/2022 for total knee arthroplasty. The procedure is performed without complication or sequelae. The patient is doing well postoperatively. Labs and vital signs are stable on day of discharge. On day of discharge patient's knee incision is healing well. There is minimal erythema. There is no drainage noted at this time. There is minimal soft tissue swelling to the knee. Patient has full foot and ankle motion without difficulty or pain. Calf is soft and nontender to palpation. Neurovascular status to the left lower extremity is intact. Patient is discharged home in good condition. Pain management per the patient's package dyeing machine operator. Please see med rec for accurate list of home medications. Plan - Discharge Summary Discharge Rx Participant: No New Discharge Prescriptions: New Aspirin 325 mg PO BID #60 tab Sennosides-Docusate Sodium [Senokot-S] 1 tab PO BID PRN #60 tablet PRN Reason: Constipation Ondansetron [Zofran] 4 mg PO Q6HR PRN #30 tab PRN Reason: Nausea Continue metHOTREXate sodium [Methotrexate] 20 mg PO FR rOPINIRole HCL [Requip] 0.5 mg PO HS SUMAtriptan succinate [Imitrex] 25 mg PO BID PRN PRN Reason: migraines Folic Acid 1 mg PO QAM Calcium Carbonate [Calcium] 1,200 mg PO DAILY Zoledronic Acid 5Mg/100Ml Pmx [Reclast] 0 mg IVPB DAILY Famotidine [Pepcid] 20 mg PO BID Anastrozole [Arimidex] 1 mg PO DAILY Pravastatin Sodium [Pravachol] 20 mg PO HS Discharge Medication List metHOTREXate sodium [Methotrexate] 20 mg PO FR 11/03/15 [History] Folic Acid 1 mg PO QAM 04/29/17 [History] SUMAtriptan succinate [Imitrex] 25 mg PO BID PRN 04/29/17 [History] rOPINIRole HCL [Requip] 0.5 mg PO HS 04/29/17 [History] Anastrozole [Arimidex] 1 mg PO DAILY 03/12/21 [History] Calcium Carbonate [Calcium] 1,200 mg PO DAILY 09/10/21 [History] Pravastatin Sodium [Pravachol] 20 mg PO HS 09/10/22 [History] Zoledronic Acid 5Mg/100Ml Pmx [Reclast] 0 mg IVPB DAILY 09/10/22 [History] Famotidine [Pepcid] 20 mg PO BID 11/11/22 [History] Aspirin 325 mg PO BID #60 tab 11/16/22 [Rx] Ondansetron [Zofran] 4 mg PO Q6HR PRN #30 tab 11/16/22 [Rx] Sennosides-Docusate Sodium [Senokot-S] 1 tab PO BID PRN #60 tablet 11/16/22 [Rx] Follow up Appointment(s)/Referral(s): [facility] [NON-STAFF] - As Needed (Continuous Passive Motion knee machine) [facility] [NON-STAFF] - As Needed Rick Umana DO [Doctor of Osteopathic Medicine] - 2 Weeks (Patient may follow-up with Dr. Rick Umana at [facility] in 2 weeks following discharge. ) Activity/Diet/Wound Care/Special Instructions: 1. Patient to remain weight-bear as tolerated on the left lower extremity with the assistance of a walker 2. Patient is encouraged to elevate the left lower extremity for comfort support as needed 3. Patient may apply ice over the surgical site of the left knee for comfort support as needed 4. Keep Optifoam dressing intact over the left knee 7 days 5. Patient may shower with Optifoam dressing intact 6. Patient may shower without dressing intact over the surgical site if surgical incision site remains dry after Optifoam dressing has been discontinued 7. Take medications as prescribed. 8. Narcotic medications will be managed in the outpatient setting postoperatively by the patient's package dyeing machine operator Discharge Disposition: HOME WITH HOME HEALTH SERVICES
[2022-11-17] MEDS: ASPIRIN 325 MG TAB PO SCH (10:14)
[2022-11-17] MEDS: FAMOTIDINE 20 MG TAB PO SCH (10:15)
[2022-11-17 11:21] LABS: Basophils # (A) 0.03 X 10*3/uL (0.00-0.10); Basophils % (A) 0.2 %; Eosinophils # (A) 0 X 10*3/uL (0.04-0.35); Eosinophils % (A) 0 %; HCT 33.4 % (37.2-46.3); HGB 10.5 d/dL (12.0-15.0); Lymphocytes # (A) 1.05 X 10*3/uL (0.90-5.00); Lymphocytes % (A) 8.4 %; MCH 31.2 pg (27.0-32.0); MCHC 31.4 d/dL (32.0-37.0); MCV 99.1 FL (80.0-97.0); Mean Platelet Volume 11.1 FL (9.5-12.2); Monocytes # (A) 1.39 X 10*3/uL (0.20-1.00); Monocytes % (A) 11.1 %; NRBC Per 100 WBC 0 X 10*3/uL (0.00-0.01); Neutrophils # (A) 10.01 X 10*3/uL (1.80-7.70); Platelet Count 260 X 10*3/uL (140-440); RBC 3.37 X 10*6/uL (4.10-5.20); RDW 13.4 % (11.5-14.5); WBC 12.52 X 10*3/uL (4.50-10.00)
[2022-11-17 13:41] VITALS: BP 125/70; PULSE 100; RESP 16; TEMP 98.3
--- NOTE | 2022-11-17 19:50 | P.PN ---
Subjective Progress Note Date: 11/17/22 This is a pleasant 76-year-old female admitted under orthopedic service is status post left total knee arthroplasty. Patient was seen and evaluated by physical therapy did relatively well and reports patient will be going home today. Patient is postop day 1. Patient is afebrile with no reported chest pain or shortness of breath. Patient is tolerating diet with no reported nausea or vomiting. Patient does have incentive spirometer and encourage the patient to take home and continue using at least 10 times every hour while awake. Patient is medically stable for discharge today. Patient has been instructed to follow-up with primary care provider on discharge. Review of systems: Constitutional: No reports of fatigue, fever, or chills Cardiovascular: No reports of chest pain or palpitations Respiratory: No reports of shortness of breath or cough GI: No reports of nausea, no reports of vomiting, no diarrhea : No reports of dysuria or retention Neurovascular: reports of generalized weakness with mild left knee discomfort All medications have been reviewed PHYSICAL EXAMINATION: GENERAL: The patient is alert and oriented x4, Well developed, well nourished. HEENT: Pupils are round and equally reacting to light. EOMI. no scleral icterus. No conjunctival pallor. Normocephalic, atraumatic. No pharyngeal erythema. No thyromegaly. CARDIOVASCULAR: S1 and S2 muffled PULMONARY: diminished breath sounds bilaterally with no wheezing or rhonchi noted. ABDOMEN: soft. Nontender on exam. obese. non-distended, normoactive bowel sounds. No palpable organomegaly. MUSCULOSKELETAL: No joint swelling or deformity. EXTREMITIES: No cyanosis, clubbing, or pedal edema. Left knee surgical site dressing is dry and intact with minimal swelling noted NEUROLOGICAL: Gross neurological examination did not reveal any focal deficits. Diffuse weakness SKIN: No rashes. Assessment: Status post left total knee arthroplasty history of rheumatoid arthritis Hyperlipidemia History of migraines History of restless leg syndrome GI prophylaxis DVT prophylaxis Full code Plan: Patient is status post left total knee arthroplasty and did work with physical therapy today and will be going home Patient with incentive spirometer at bedside encourage the patient a take home and continue using at least 10 times every hour while awake DVT prophylaxis and pain management per orthopedics Home medications reviewed and resumed and patient will follow-up with primary care provider on discharge Thank you kindly for this consultation. We will continue to follow during hospitalization. The impression and plan of care has been dictated by Rachael Velasquez, nurse practitioner as directed. Dr. Yogesh MD I have performed a history and examination and MDM of this patient, discussed the same with the dictator, and agree with the dictator's assessment and plan as written ,documented as a scribe. Based on total visit time, I have performed more than 50% of the visit. Any additional findings or plans will be noted. Objective - Vital Signs Vital signs: Vital Signs Temp 98.2 F 11/17/22 08:00 Pulse 90 11/17/22 08:00 Resp 14 11/17/22 08:00 BP 120/72 11/17/22 08:00 Pulse Ox 96 11/16/22 20:08 FiO2 Intake & Output 11/16/22 11/17/22 11/17/22 18:59 06:59 18:59 Intake Total 1051 Output Total 40 Balance 1011 Weight 68.2 kg Intake: IV 1051 Output: Estimated Blood Loss 40 Other: Voiding Method Toilet # Voids 0 3 - Labs CBC & Chem 7: 11/17/22 06:29 Labs: Abnormal Lab Results - Last 24 Hours (Table) 11/17/22 Range/Units 06:29 WBC 12.52 H (4.50-10.00) X 10*3/uL RBC 3.37 L (4.10-5.20) X 10*6/uL Hgb 10.5 L (12.0-15.0) d/dL Hct 33.4 L (37.2-46.3) % MCV 99.1 H (80.0-97.0) FL MCHC 31.4 L (32.0-37.0) d/dL Neutrophils # 10.01 H (1.80-7.70) X 10*3/uL Monocytes # 1.39 H (0.20-1.00) X 10*3/uL Eosinophils # 0 L (0.04-0.35) X 10*3/uL
== END 2022-11-17 15:15 | disposition home health service (06) ==
LOC: OR 07:26 → 4SSUR 10:49 → OR 11-17 15:15
PROVIDERS: ATTEND Orthopaedic Surgery
DX: M17.12 Unilateral primary osteoarthritis, left knee (principal); M06.9 Rheumatoid arthritis, unspecified; E78.5 Hyperlipidemia, unspecified; K21.9 Gastro-esophageal reflux disease without esophagitis; Z88.2 Allergy status to sulfonamides; Z96.643 Presence of artificial hip joint, bilateral; Z90.710 Acquired absence of both cervix and uterus; Z98.890 Other specified postprocedural states; Z98.891 History of uterine scar from previous surgery; Z79.899 Other long term (current) drug therapy
CPT/HCPCS: 97161; 64999; 64448; 85025; 73560; 27447; C1713; C1776; C1751; J2250; J1100; J0690 ×3; J2405; J3010; S0170; J2795; J1170

== ENCOUNTER → 2023-03-16 | Outpatient (CLI) | payer MEDICARE, BC ==
--- NOTE | 2023-03-17 13:38 | CA ---
Transthoracic Echo Report Name: Terra Faustin Age: 77 Gender: F : 1945 Exam Date: 03/16/2023 13:25 Exam Location: [facility] Ht (in): 64 Wt (lb): 140 Ordering Physician: Ayad Kan DO Attending/Referring Phys: Supervisory It Specialist Mariah Larsen [facility] Procedure CPT: Indications: R60.0 EDEMA,LOWER EXTREMITY Cardiac Hx: Technical Quality: Technically difficult study Contrast 1: Total Dose (mL): Contrast 2: Total Dose (mL): MEASUREMENTS (Male / Female) Normal Values 2D ECHO LV Diastolic Diameter PLAX 3.9 cm 4.2 - 5.9 / 3.9 - 5.3 cm LV Systolic Diameter PLAX 2.6 cm IVS Diastolic Thickness 1.1 cm 0.6 - 1.0 / 0.6 - 0.9 cm LVPW Diastolic Thickness 1.2 cm 0.6 - 1.0 / 0.6 - 0.9 cm LV Relative Wall Thickness 0.6 LVOT Diameter 2.0 cm LA Volume 41.7 cm??? 18 - 58 / 22 - 52 cm??? LA Volume Index 24.5 cm???/m??? 16 - 28 cm???/m??? Ascending Aorta Diameter 3.4 cm M-MODE Aortic Root Diameter MM 2.8 cm LA Systolic Diameter MM 4.0 cm LA Ao Ratio MM 1.4 AV Cusp Separation MM 2.0 cm DOPPLER AV Peak Velocity 117.5 cm/s AV Peak Gradient 5.5 mmHg AV Mean Velocity 86.4 cm/s AV Mean Gradient 3.3 mmHg AV Velocity Time Integral 23.5 cm LVOT Peak Velocity 95.6 cm/s LVOT Peak Gradient 3.7 mmHg LVOT Velocity Time Integral 16.1 cm LVOT Stroke Volume 48.8 cm??? LVOT Stroke Volume Index 29.0 ml/m??? LVOT Cardiac Index 2694.7 cm???/min???m??? AV Area Cont Eq vti 2.1 cm??? AV Area Cont Eq pk 2.5 cm??? Mitral E Point Velocity 56.9 cm/s Mitral A Point Velocity 95.6 cm/s Mitral E to A Ratio 0.6 MV Deceleration Time 158.4 ms LV E' Lateral Velocity 7.5 cm/s Mitral E to LV E' Lateral Ratio 7.5 LV E' Septal Velocity 11.4 cm/s Mitral E to LV E' Septal Ratio 5.0 TR Peak Velocity 246.6 cm/s TR Peak Gradient 24.3 mmHg Right Atrial Pressure 3.0 mmHg Pulmonary Artery Systolic Pressu 27.3 mmHg Right Ventricular Systolic Press 27.3 mmHg FINDINGS Left Ventricle Mildly increased septal wall thickness. Mildly increased posterior wall thickness. Left ventricular cavity size normal. Normal left ventricular systolic function with no obvious regional wall motion abnormalities. Left ventricular ejection fraction is estimated at 55-60%. Right Ventricle Right ventricle not well visualized. Right Atrium Mild right atrial dilatation. Left Atrium Normal left atrial size. Mitral Valve Structurally normal mitral valve. No mitral regurgitation. Aortic Valve Aortic valve not well visualized. No aortic valve stenosis or regurgitation. Tricuspid Valve Tricuspid valve not well visualized. Trace tricuspid regurgitation. Pulmonic Valve Pulmonic valve not well visualized. Pericardium Minimal pericardial effusion (normal variant). Echo free space anterior to the right ventricle likely represents a fat pad. Aorta Normal size aortic root and proximal ascending aorta. CONCLUSIONS Preserved LV size and systolic function Prominent posterior pericardial stripe Previewed by: Dr. Lance Lagos MD (Electronically Signed) Final Date: 17 March 2023 13:37
== END | disposition home or self-care (01) ==
LOC: RADECHMAIN 13:17
PROVIDERS: ATTEND Internal Medicine
DX: R60.0 Localized edema (principal)
CPT/HCPCS: 93306

== ENCOUNTER → 2023-04-08 | Outpatient (CLI) | payer MEDICARE, BC ==
[2023-04-08 15:37] VITALS: BP 145/83; PULSE 94; RESP 16; TEMP 97.7
--- NOTE | 2023-04-08 15:38 | P.PN ---
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 She had a SNB which was (-). She completed radiation therapy on 02/16. She was started on Tamoxifen but changed to Arimidex which she is tolerating. She had a left breast mammogram on 03-01-22; this was BIRAD 3, postsurgical and posttreatment changes noted in the left breast. Fat necrosis calcifications around the area of surgery. Faint calcification central left CC view were questionably minimally increased. On mag views corresponding fat density area suggesting development of fat necrosis. Repeat mammogram in 6 months is recommended. Her last bilateral mammogram was on 08-30-22. Which was BIRAD 2. note medical oncology reviewed 01-14-23 She is not complaining of any new lumps masses or nodules in either breast. She does have some intermittent discomfort in the left breast with pressure near the site of the surgery. Caffeine: 1 diet coke/day Nicotine: Negative iris-bromine: Rarely Family history: 1. Negative patient: DCIS Hormonal history: Menarche: 13 , 2 miscarriages, first born at 21, breast fed: none menopause: hysterectomy at 39, took ovaries; done for endometriosis BCP: 5 years hormones: estrace for hot flashes in the past, not regularly twice a week; been on this for two years; took hormones after hysterectomy for a year Surgical history: 1. Total abdominal hysterectomy 2.bilateral hip replacement 3. knee replacement, right 4. 5. appyendectomy 6. laminectomy 7. salivary gland on the right removed with stones 8. left bresat lumpectomy and SNB; 12-11-19 9. right knee replacement in October 2019 10. left knee October 2022 Medical history: 1. Rheumatoid arthritis 2. left wrist fracture Social history: Smoking: Negative Alcohol: Negative Drugs: Negative - Constitutional Constitutional: Reports sweats - EENT Eyes: denies blurred vision, denies pain Ears, nose, mouth and throat: Denies headache, Denies sore throat - Breasts Breasts: bilateral: as per HPI - Cardiovascular Cardiovascular: Denies chest pain, Denies shortness of breath - Respiratory Respiratory: Denies cough - Gastrointestinal Gastrointestinal: Denies abdominal pain, Denies diarrhea, Denies nausea, Denies vomiting - Menstruation Menstruation: Reports post hysterectomy - Musculoskeletal Comment: arthritis Arthroscopic surgery left knee for torn meniscus 11/09/2019 - Integumentary Integumentary: Denies pruritus, Denies rash - Neurological Neurological: Denies numbness, Denies weakness - Psychiatric Psychiatric: Denies anxiety, Denies depression - Endocrine Endocrine: Denies fatigue, Denies weight change - Hematologic/Lymphatic Comment: none - Allergic/Immunologic Allergic/Immunologic: Reports as per HPI Objective - Vital Signs Vital signs: Intake & Output 04/07/23 04/08/23 04/08/23 18:59 06:59 18:59 Weight 65.771 kg - Constitutional General appearance: Present: cooperative - EENT Eyes: Present: EOMI ENT: Present: hearing grossly normal - Neck Neck: Present: normal ROM - Respiratory Respiratory: bilateral: CTA - Cardiovascular Heart sounds: normal: S1, S2 - Integumentary Integumentary: Present: normal turgor - Psychiatric Psychiatric: Present: A&O x's 3, appropriate affect, intact judgment & insight - Additional findings Additional findings: Breast Exam: BRA: 36C Inspection: post op and post radiation changes left breast Palpation: Right breast: no domoniate masses or nodules of concern right axilla: no adenopathy of concern left breast: post op changes no lesions of concern left axilla: no adenopathy of concern Assessment and Plan Assessment: Impression: DCIS left breast status post lumpectomy, radiation therapy, patient presently on Arimidex No evidence of recurrent cancer Plan: Repeat bilateral mammogram August 2023 with appointment Continue arimidex Continue follow-up with radiation oncology follow up medical oncology CC: Dr. Kan
== END ==
LOC: WWCWWP 14:37
PROVIDERS: ATTEND Surgery
DX: M06.9 Rheumatoid arthritis, unspecified (principal); Z85.3 Personal history of malignant neoplasm of breast; Z98.890 Other specified postprocedural states; Z92.3 Personal history of irradiation; Z88.2 Allergy status to sulfonamides; Z88.5 Allergy status to narcotic agent; Z79.82 Long term (current) use of aspirin

== ENCOUNTER 2023-06-24 20:35 | Emergency (ER) | payer MEDICARE, BC ==
--- NOTE | 2023-06-24 20:44 | ED ---
Fall HPI - General Source: RN notes reviewed <Prabha Wesley - Last Filed: 06/24/23 20:44> <Gus Parikh - Last Filed: 06/25/23 01:33> - General Stated Complaint: Fall, Right Side Pain Time Seen by Provider: 06/24/23 20:40 - History of Present Illness Initial Comments: Quick note77 year-old female presenting with fall injury 3 days ago. States on Tuesday she tripped over her dog and landed on her right sided ribs and hit her head on the floor. States she hit the right temporal area of her face. Denies loss of consciousness. States she has had x-ray of her right ribs which return ed normal but she is still having pain. Her children are present on examination who are concerned because they feel she is not acting normally today answering basic questions correctly. Denies blood thinners. (Prabha Wesley) - Related Data Home Medications Medication Instructions Recorded Confirmed metHOTREXate sodium 20 mg PO FR 11/03/15 04/08/23 Folic Acid 1 mg PO QAM 04/29/17 04/08/23 SUMAtriptan succinate [Imitrex] 25 mg PO BID PRN 04/29/17 04/08/23 rOPINIRole HCL [Requip] 0.5 mg PO HS 04/29/17 04/08/23 Anastrozole [Arimidex] 1 mg PO DAILY 03/12/21 04/08/23 Calcium Carbonate [Calcium] 1,200 mg PO DAILY 09/10/21 04/08/23 Pravastatin Sodium [Pravachol] 20 mg PO HS 09/10/22 04/08/23 Zoledronic Acid 5Mg/100Ml Pmx 0 mg IVPB DAILY 09/10/22 04/08/23 [Reclast] Famotidine [Pepcid] 20 mg PO BID 11/11/22 04/08/23 Previous Rx's Medication Instructions Recorded Aspirin 325 mg PO BID #60 tab 11/16/22 Ondansetron [Zofran] 4 mg PO Q6HR PRN #30 tab 11/16/22 Sennosides-Docusate Sodium 1 tab PO BID PRN #60 tablet 11/16/22 [Senokot-S] Allergies Allergy/AdvReac Type Severity Reaction Status Date / Time Sulfa (Sulfonamide Allergy Rash/Hives Verified 06/24/23 21:03 Antibiotics) codeine AdvReac Nausea & Verified 06/24/23 21:03 Vomiting morphine AdvReac Nausea & Verified 06/24/23 21:03 Vomiting Review of Systems ROS Other: All systems not noted in ROS Statement are negative. <Prabha Wesley - Last Filed: 06/24/23 20:44> ROS Other: All systems not noted in ROS Statement are negative. <Gus Parikh - Last Filed: 06/25/23 01:33> ROS Statement: Those systems with pertinent positive or pertinent negative responses have been documented in the HPI. Past Medical History Past Medical History: Cancer, Hyperlipidemia, Rheumatoid Arthritis (RA) Additional Past Medical History / Comment(s): migraines; varicose veins; restless leg syndrome; Left Breast Cancer tx radiation and methotrexate, recent [facility]13/[facility] History of Any Multi-Drug Resistant Organisms: None Reported Past Surgical History: Appendectomy, Back Surgery, Section, Cholecystectomy, Hysterectomy, Joint Replacement Additional Past Surgical History / Comment(s): Total left & right hip replacement; laminectomy L4 & L5; right salivary gland removed; right knee replacement; full hysterectomy; section x2; left knee arthroscopy(11/18/19) Past Anesthesia/Blood Transfusion Reactions: No Reported Reaction Additional Past Anesthesia/Blood Transfusion Reaction / Comment(s): SON=PONV Past Psychological History: No Psychological Hx Reported Smoking Status: Never smoker Past Alcohol Use History: None Reported Past Drug Use History: None Reported - Past Family History Mother Family Medical History: No Reported History Additional Family Medical History / Comment(s): . Father Family Medical History: No Reported History Brother(s) Family Medical History: Cancer Additional Family Medical History / Comment(s): PROSTATE CANCER <Prabha Wesley - Last Filed: 06/24/23 20:44> General Exam <Prabha Wesley - Last Filed: 06/24/23 20:44> - General Exam Comments Initial Comments: Visual Physical Exam Vital signs reviewed General: Well-appearing, nontoxic, no acute distress. Head: Normocephalic, atraumatic Eyes: PERRLA, EOMI ENT: Airway patent Chest: Nonlabored breathing Skin: No visual rash, normal skin tone Neuro: Alert and oriented 3 Musculoskeletal: No gross abnormalities (Prabah Wesley) Course Vital Signs 06/24/23 20:56 Temperature 99.2 F Pulse Rate 111 H Respiratory 18 Rate Blood Pressure 133/74 O2 Sat by Pulse 93 L Oximetry Medical Decision Making <Prabha Wesley - Last Filed: 06/24/23 20:44> - Lab Data Result diagrams: 06/24/23 21:09 06/24/23 21:09 <uGs Parikh - Last Filed: 06/25/23 01:33> - Medical Decision Making I completed the quick note portion of this chart signed Prabha Wesley PA-C (Prabha Wesley) - Lab Data Lab Results 06/24/23 06/24/23 Range/Units 21:09 21:09 WBC 6.1 (3.8-10.6) k/uL RBC 3.89 (3.80-5.40) m/uL Hgb 11.9 (11.4-16.0) gm/dL Hct 37.0 (34.0-46.0) % MCV 95.0 (80.0-100.0) fL MCH 30.6 (25.0-35.0) pg MCHC 32.2 (31.0-37.0) g/dL RDW 13.8 (11.5-15.5) % Plt Count 187 (150-450) k/uL MPV 7.8 Neutrophils % 85 % Lymphocytes % 8 % Monocytes % 3 % Eosinophils % 2 % Basophils % 1 % Neutrophils # 5.2 (1.3-7.7) k/uL Lymphocytes # 0.5 L (1.0-4.8) k/uL Monocytes # 0.2 (0-1.0) k/uL Eosinophils # 0.1 (0-0.7) k/uL Basophils # 0.0 (0-0.2) k/uL Sodium 132 L (137-145) mmol/L Potassium 4.2 (3.5-5.1) mmol/L Chloride 101 (98-107) mmol/L Carbon Dioxide 27 (22-30) mmol/L Anion Gap 4 mmol/L BUN 21 H (7-17) mg/dL Creatinine 0.81 (0.52-1.04) mg/dL Est GFR (CKD-EPI)AfAm 82 (>60 ml/min/1.73 sqM) Est GFR (CKD-EPI)NonAf 71 (>60 ml/min/1.73 sqM) Glucose 107 H (74-99) mg/dL Calcium 8.8 (8.4-10.2) mg/dL Total Bilirubin 0.5 (0.2-1.3) mg/dL AST 54 H (14-36) U/L ALT 29 (4-34) U/L Alkaline Phosphatase 57 (38-126) U/L Total Protein 6.8 (6.3-8.2) g/dL Albumin 3.9 (3.5-5.0) g/dL Disposition <Prabha Wesley - Last Filed: 06/24/23 20:44> Is patient prescribed a controlled substance at d/c from ED?: No <Gus Parikh - Last Filed: 06/25/23 01:33> Clinical Impression: Fall with injury, Chest wall injury, Head injury Disposition: HOME SELF-CARE Condition: Fair Instructions (If sedation given, give patient instructions): Head Injury (ED), Chest Pain (ED) Referrals: Ayad Kan DO [Primary Care Provider] - 1-2 days Kat Clement MD [REFERRING] - 1-2 days
[2023-06-24 21:16] LABS: Basophils % (A) 1 %; Eosinophils # (A) 0.1 k/uL (0-0.7); Eosinophils % (A) 2 %; HGB 11.9 gm/dL (11.4-16.0); Lymphocytes # (A) 0.5 k/uL (1.0-4.8); Lymphocytes % (A) 8 %; MCH 30.6 pg (25.0-35.0); MCHC 32.2 g/dL (31.0-37.0); Mean Platelet Volume 7.8; Monocytes # (A) 0.2 k/uL (0-1.0); Monocytes % (A) 3 %; Neutrophils # (A) 5.2 k/uL (1.3-7.7); Neutrophils % (A) 85 %; Platelet Count 187 k/uL (150-450); RBC 3.89 m/uL (3.80-5.40); RDW 13.8 % (11.5-15.5); WBC 6.1 k/uL (3.8-10.6)
[2023-06-24 21:26] LABS: ALT 29 U/L (4-34); AST 54 U/L (14-36); African American GFR (CKD) 82 (>60 ml/min/1.73 sqM); Albumin 3.9 g/dL (3.5-5.0); Alkaline Phosphatase 57 U/L (38-126); Anion Gap 4 mmol/L; Blood Urea Nitrogen 21 mg/dL (7-17); Calcium 8.8 mg/dL (8.4-10.2); Carbon Dioxide 27 mmol/L (22-30); Chloride 101 mmol/L (98-107); Glucose 107 mg/dL (74-99); Non-African American GFR(CKD) 71 (>60 ml/min/1.73 sqM); Potassium 4.2 mmol/L (3.5-5.1); Sodium 132 mmol/L (137-145); Total Bilirubin 0.5 mg/dL (0.2-1.3); Total Protein 6.8 g/dL (6.3-8.2)
[2023-06-24 21:33] VITALS: BP 133/74; PULSE 111; RESP 18; TEMP 99.2
--- NOTE | 2023-06-25 00:57 | CT ---
EXAM: CT Head Without Intravenous Contrast CLINICAL HISTORY: Head injury TECHNIQUE: Axial computed tomography images of the head/brain without intravenous contrast. CTDI is 45.2 mGy and DLP is 1058 mGy-cm. This CT exam was performed using one or more of the following dose reduction techniques: automated exposure control, adjustment of the mA and/or kV according to patient size, and/or use of iterative reconstruction technique. COMPARISON: No relevant prior studies available. FINDINGS: Brain: No significant overlying acute traumatic soft tissue abnormality. No radiopaque foreign body. No intracranial hemorrhage. No significant mass effect. No evidence for cortical infarct. Mild prominence of the cerebral sulci and sylvian fissures. Mild periventricular deep white matter hypodense changes. Ventricles: Mild prominence of the lateral ventricles is presumed related to central atrophy. No midline shift. Bones/joints: Unremarkable. No acute fracture. Soft tissues: Unremarkable. Sinuses: Minimal mucosal thickening or fluid involving the posterior left maxillary sinus. The remaining paranasal sinuses are well-aerated. Mastoid air cells: Unremarkable as visualized. No mastoid effusion. IMPRESSION: No acute intracranial process identified. Incidental underlying chronic-appearing presumed age-related atrophy and mild periventricular deep white matter presumed microvascular changes. EXAM: CT Cervical Spine Without Intravenous Contrast CLINICAL HISTORY: Head injury TECHNIQUE: Axial computed tomography images of the cervical spine without intravenous contrast. CTDI is 13.2 mGy and DLP is 397 mGy-cm. This CT exam was performed using one or more of the following dose reduction techniques: automated exposure control, adjustment of the mA and/or kV according to patient size, and/or use of iterative reconstruction technique. COMPARISON: No relevant prior studies available. FINDINGS: Vertebrae: The vertebral bodies are intact without acute osseous traumatic injury. 4 mm anterolisthesis is noted involving C7 on T1. 3 mm anterolisthesis is noted involving T1 and T2 and T3 on T4. No corollary facet malalignment noted. The facet joints are well aligned without subluxation or dislocation. The pedicles, transverse processes and spinous processes are intact. Facet hypertrophic arthrosis noted involving the entire cervical spine bilaterally. Discs/spinal canal/neural foramina: Disc space narrowing with marginal hypertrophic changes noted at all levels of the cervical spine. No significant acute osseous central canal stenosis. Soft tissues: Unremarkable. Lung apices: The included lung apices demonstrate no evidence for acute traumatic injury. IMPRESSION: 1. No acute osseous traumatic injury or significant acute traumatic abnormal alignment involving the cervical spine. 2. Grade 1 anterolisthesis at several levels from C7-T1 and inferiorly is presumed degenerative. Diffuse chronic appearing disc spondylosis and facet hypertrophic changes incidentally noted.
== END 2023-06-25 01:41 | disposition home or self-care (01) ==
LOC: EC 20:35
DX: S29.9XXA Unspecified injury of thorax, initial encounter (principal); S09.90XA Unspecified injury of head, initial encounter; Z88.2 Allergy status to sulfonamides; Z88.5 Allergy status to narcotic agent; W01.0XXA Fall on same level from slipping, tripping and stumbling without subsequent striking against object, initial encounter
CPT/HCPCS: 36415; 70450; 72125; 80053; 85025; 99283

== ENCOUNTER → 2023-06-27 | Outpatient (CLI) | payer MEDICARE, BC ==
--- NOTE | 2023-06-27 16:12 | XR ---
EXAMINATION TYPE: XR chest 2V DATE OF EXAM: 06/27/2023 COMPARISON: None INDICATION: Wheezing TECHNIQUE: Frontal and lateral views of the chest are obtained. FINDINGS: The heart size is normal. The pulmonary vasculature is normal. Minimal infiltrate may be at the inferior medial right lung base. Correlate for atelectasis or pneumo canelo. Minimal atelectasis medially at the left lung base. Follow-up can be performed as clinically ind icated. IMPRESSION: 1. Minimal bibasilar infiltrates. Correlate for atelectasis. Follow-up can be performed
== END | disposition home or self-care (01) ==
LOC: RADXRMAIN 14:23
PROVIDERS: ATTEND Family Medicine
DX: R91.8 Other nonspecific abnormal finding of lung field (principal); R06.2 Wheezing
CPT/HCPCS: 71046

== ENCOUNTER → 2023-07-20 | Outpatient (CLI) | payer MEDICARE, BC ==
--- NOTE | 2023-07-21 10:09 | XR ---
EXAMINATION TYPE: XR chest 2V DATE OF EXAM: 07/21/2023 10:02 AM CLINICAL INDICATION:Female, 77 years old with history of J18.9 PNEUMONIA, UNSPECIFIED ORGANISM; [facility] COMPARISON: Chest radiographs from 07/20/2023 TECHNIQUE: XR chest 2V Frontal and lateral views of the chest. FINDINGS: Lungs/Pleura: There is no evidence of pleural effusion, focal consolidation, or pneumothorax. Pulmonary vascularity: Unremarkable. Heart/mediastinum: Cardiomediastinal silhouette is unremarkable. Musculoskeletal: No acute osseous pathology. Other findings: Cholecystectomy clips identified in the upper abdomen. IMPRESSION: No acute cardiopulmonary disease/process.
--- NOTE | 2023-07-21 10:10 | XR ---
EXAMINATION TYPE: XR ribs LT DATE OF EXAM: 07/21/2023 10:02 AM CLINICAL INDICATION:Female, 77 years old with history of R07.81 Pleurodynia; [facility] COMPARISON: 07/20/2023 TECHNIQUE: XR ribs LT; Frontal and oblique views of the ribs with frontal chest radiograph. FINDINGS: Calcifications limits evaluation of fine bony detail. The ribs have a normal appearance. N o evidence of fracture. Overall, the lungs are clear. The cardiac silhouette is normal in size. The remaining osseous structures are intact. IMPRESSION: No evidence for displaced rib fracture. Calcification of the cartilage limits evaluation.
== END | disposition home or self-care (01) ==
LOC: RADXRMAIN 15:15
PROVIDERS: ATTEND Family Medicine
DX: J18.9 Pneumonia, unspecified organism (principal); M94.8X8 Other specified disorders of cartilage, other site; R07.81 Pleurodynia
CPT/HCPCS: 71046

== ENCOUNTER → 2023-08-10 | Outpatient (CLI) | payer MEDICARE, BC ==
--- NOTE | 2023-08-10 11:32 | BD ---
EXAMINATION TYPE: Axial Bone Density DATE OF EXAM: 08/10/2023 CLINICAL HISTORY: 77 years old Female. ICD-10 CODE: M81.0 OSTEOPOROSIS Height: 62.5 Weight: 151.3 FRAX RISK QUESTIONS: Alcohol (3 or more units per day): no Family History (Parent hip fracture): yes Glucocorticoids (More than 3mos): no (Ex: prednisone, prednisolone, methylprednisolone, dexamethasone, and hydrocortisone). History of Fracture in Adulthood: yes Secondary Osteoporosis: 1. Type 1 Diabetes: no 2. Hyperthyroidism: no 3. Menopause before 45: yes 4. Malnutrition: no 5. Chronic liver disease: no Rheumatoid Arthritis: yes Current Tobacco Use: no RISK FACTORS HISTORY OF: Hip Fracture (Right/Left): no Spine Fracture: L4-L5 Laminectomy When: ? History of Wrist Fracture: Lt wrist When: age 74 Surgery to Spine/Hip(right/left)/Wrist (right/left): Bilateral Hip Replacement MEDICATIONS: Thyroid Medications: no Osteoporosis Medications: Reclast yearly How Long: Past 2 years EXAM MEASUREMENTS: Bone mineral densitometry was performed using the [employer] System. Bone mineral density as measured about the Lumbar spine is: ----- L1-L4(G/cm2): 1.414 T Score Values are as follows: ----- L1: 0.2 ----- L2: 1.5 ----- L3: 3.2 ----- L4: 2.5 ----- L1-L4: 2.0 Z Score Values are as follows: ----- L1: 1.8 ----- L2: 3.2 ----- L3: 4.9 ----- L4: 4.2 ----- L1-L4: 3.6 Baseline for Spine Bone mineral density about the R Wrist (g/cm2): 0.501 T Score values are as follows: -----Dist. R+U: -3.4 -----Prox. R+U: -1.0 -----Radius total: -2.9 Z Score values are as follows: -----Dist. R+U: -0.9 -----Prox. R+U: 1.5 -----Radius total: -0.4 Baseline Study for Right Wrist FRAX%s: The graph provided illustrates a % chance for a major osteoporotic fx and a % chance for the hips probability for fx in 10 years time. No FRAX given because hips were not scanned. IMPRESSION: Osteoporosis (T Score less than -2.5). There is increased fracture risk and therapy is usually indicated based on age. Re-Screen 1-2 years. NOTE: T-SCORE=SD OF THE YOUNG ADULT MEAN.
== END | disposition home or self-care (01) ==
LOC: RADBDWWP 10:27
PROVIDERS: ATTEND Internal Medicine Hematology & Oncology
DX: M81.0 Age-related osteoporosis without current pathological fracture (principal); R51.9 Headache, unspecified; D05.12 Intraductal carcinoma in situ of left breast; Z79.811 Long term (current) use of aromatase inhibitors; Z78.0 Asymptomatic menopausal state; Z71.3 Dietary counseling and surveillance
CPT/HCPCS: 77080

== ENCOUNTER → 2023-09-06 | Outpatient (CLI) | payer MEDICARE, BC ==
--- NOTE | 2023-09-06 09:37 | MM ---
Reason for Exam: Hx of breast cancer, conservation therapy. Last screening mammogram was performed 12 month(s) ago. Patient History: Menarche at age 13. First Full-Term at age 21. Left ovary removed at age 37. Right ovary removed at age 37. Hysterectomy at age 37. Postmenopausal. Breast cancer, left, age 74. Previous DCIS pathology result. 12/11/2019, Lumpectomy on the Left side. 12/11/2019, Malignant Core Biopsy on the left side. 12/11/2019, Malignant Core Biopsy on the left side. 09/19/2019, Malignant Core Biopsy on the left side. Prior Study Comparison: 09/06/2019 Screening Mammogram, Unknown. 09/19/2019 Screening Mammogram, Unknown. 12/11/2019 Screening Mammogram, Unknown. 08/19/2020 Bilateral Diagnostic Mammogram, [facility]. 02/26/2021 Left Diagnostic Mammogram, [facility]. 09/01/2021 Bilateral MG 3D diag mammo w/cad JUAN PABLO, [facility]. 03/01/2022 Left MG 3D diag mammo w/cad LT, [facility]. 08/30/2022 Bilateral MG 3D diag mammo w/cad JUAN PABLO, [facility]. Tissue Density: There are scattered areas of fibroglandular density. Findings: Analyzed By CAD. The pattern is stable. Focal asymmetry in the anterior left periareolar region unchanged from comparison No suspicious groups of microcalcifications, spiculated or lobular masses, architectural distortion or other secondary signs of malignancy are mammographically apparent. Overall Assessment: Benign, BI-RAD 2 Management: Diagnostic Mammogram of both breasts in 1 year. A negative mammogram report should not preclude additional follow up of suspicious palpable abnormalities. Patient should continue monthly self breast exam. A clinical breast exam by your physician is recommended on an annual basis and results should be correlated with mammographic findings. Note on Soumya scores and lifetime risk: 1. A Soumya score greater than 3% is considered moderate risk. If this is the case, consider specialist referral to assess eligibility for a risk reducing agent. 2. If overall lifetime risk for the development of breast cancer is 20% or higher, the patient may qualify for future screening with alternating mammogram and breast MRI. Electronically signed and approved by: Juan C Meade D.O. Radiologis
== END | disposition home or self-care (01) ==
LOC: RADMAMWWP 09:06
PROVIDERS: ATTEND Surgery
DX: R92.323 Mammographic fibroglandular density, bilateral breasts (principal); Z85.3 Personal history of malignant neoplasm of breast; Z78.0 Asymptomatic menopausal state
CPT/HCPCS: 77066; G0279; 77062

== ENCOUNTER → 2023-09-09 | Outpatient (CLI) | payer MEDICARE, BC ==
[2023-09-09 09:52] VITALS: BP 145/78; PULSE 101; RESP 17; TEMP 98.9
--- NOTE | 2023-09-09 10:04 | P.PN ---
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 She had a SNB which was (-). She completed radiation therapy on 02/16. She was started on Tamoxifen but changed to anastrozole which she is tolerating. She had a left breast mammogram on 03-01-22; this was BIRAD 3, postsurgical and posttreatment changes noted in the left breast. Fat necrosis calcifications around the area of surgery. Faint calcification central left CC view were questionably minimally increased. On mag views corresponding fat density area suggesting development of fat necrosis. Repeat mammogram in 6 months is recommended. Her last bilateral mammogram was on 09-06-23 BIRAD 2 personally reviewed and interpreted She is not complaining of any new lumps masses or nodules in either breast. She does have some intermittent discomfort in the left breast with pressure near the site of the surgery. She states that she got tripped by her dog about 3 weeks ago and fell hitting the right side of her body. She developed ecchymosis over her face as well as ecchymosis over her right breast with a nodule which formed near the area of ecchymosis. That nodule has decreased in size. She has since had a mammogram which did not show anything of concern at that site. Caffeine: 1 diet coke/day Nicotine: Negative iris-bromine: Rarely Family history: 1. Negative patient: DCIS Hormonal history: Menarche: 13 , 2 miscarriages, first born at 21, breast fed: none menopause: hysterectomy at 39, took ovaries; done for endometriosis BCP: 5 years hormones: estrace for hot flashes in the past, not regularly twice a week; been on this for two years; took hormones after hysterectomy for a year Surgical history: 1. Total abdominal hysterectomy 2.bilateral hip replacement 3. knee replacement, right 4. 5. appyendectomy 6. laminectomy 7. salivary gland on the right removed with stones 8. left bresat lumpectomy and SNB; 12-11-19 9. right knee replacement in October 2019 10. left knee October 2022 Medical history: 1. Rheumatoid arthritis 2. left wrist fracture Social history: Smoking: Negative Alcohol: Negative Drugs: Negative - Constitutional Constitutional: Reports sweats - EENT Eyes: denies blurred vision, denies pain Ears, nose, mouth and throat: Denies headache, Denies sore throat - Breasts Breasts: bilateral: as per HPI - Cardiovascular Cardiovascular: Denies chest pain, Denies shortness of breath - Respiratory Respiratory: Denies cough - Gastrointestinal Gastrointestinal: Denies abdominal pain, Denies diarrhea, Denies nausea, Denies vomiting - Menstruation Menstruation: Reports post hysterectomy - Musculoskeletal Comment: arthritis Arthroscopic surgery left knee for torn meniscus 11/09/2019 - Integumentary Integumentary: Denies pruritus, Denies rash - Neurological Neurological: Denies numbness, Denies weakness - Psychiatric Psychiatric: Denies anxiety, Denies depression - Endocrine Endocrine: Denies fatigue, Denies weight change - Hematologic/Lymphatic Comment: none - Allergic/Immunologic Allergic/Immunologic: Reports as per HPI Objective - Vital Signs Vital signs: Intake & Output 09/08/23 09/09/23 09/09/23 18:59 06:59 18:59 Weight 65.771 kg - Constitutional General appearance: Present: cooperative - EENT Eyes: Present: EOMI ENT: Present: hearing grossly normal - Neck Neck: Present: normal ROM - Respiratory Respiratory: bilateral: CTA - Cardiovascular Heart sounds: normal: S1, S2 - Integumentary Integumentary: Present: normal turgor - Musculoskeletal Musculoskeletal: Present: gait normal - Psychiatric Psychiatric: Present: A&O x's 3, appropriate affect, intact judgment & insight - Additional findings Additional findings: Breast Exam: BRA: 36C Inspection: post op and post radiation changes left breast Palpation: Right breast: Multi positional exam fibrocystic changes, particular attention to an area which had been bruised recently revealed some slight nodularity which is believed to be related most likely to a intraparenchymal hematoma related to a fall. this was in the 11 O Clock position right axilla: no adenopathy of concern left breast: post op changes no lesions of concern left axilla: no adenopathy of concern Assessment and Plan Assessment: Impression: DCIS left breast status post lumpectomy, radiation therapy, patient presently on Arimidex No evidence of recurrent cancer bilateral mammogram 09-06-23 BIRAD [address] Monte 07-22-23 reviewed continue anastrozole slight nodularity at 11 oclock right breast related to recent trauma Plan: Repeat bilateral mammogram August 2024 We have discussed doing an ultrasound of the area but the patient would prefer to be followed conservatively by examination and I will see her again in 1 month to assure that the area of slight nodularity at the 11 o'clock position has resolved follow up 6 months for examination Continue anastrozole Continue follow-up with radiation oncology follow up medical oncology CC: Dr. Kan
== END ==
LOC: WWCWWP 09:12
PROVIDERS: ATTEND Surgery
DX: D05.12 Intraductal carcinoma in situ of left breast (principal); N63.10 Unspecified lump in the right breast, unspecified quadrant; R22.0 Localized swelling, mass and lump, head; Z92.3 Personal history of irradiation; Z88.2 Allergy status to sulfonamides; Z88.5 Allergy status to narcotic agent; Z48.817 Encounter for surgical aftercare following surgery on the skin and subcutaneous tissue

== ENCOUNTER → 2024-09-06 | Outpatient (CLI) | payer MEDICARE, BC ==
--- NOTE | 2024-09-06 11:15 | MM ---
Reason for Exam: Follow-up at short interval from prior study. Last screening mammogram was performed 12 month(s) ago. Patient History: Menarche at age 13. First Full-Term at age 21. Left ovary removed at age 37. Right ovary removed at age 37. Hysterectomy at age 37. Postmenopausal. Breast cancer, left, age 74. Previous DCIS pathology result. Previous chest radiation therapy at age 74. 12/11/2019, Lumpectomy on the Left side. 12/11/2019, Malignant Core Biopsy on the left side. 12/11/2019, Malignant Core Biopsy on the left side. 09/19/2019, Malignant Core Biopsy on the left side. Prior Study Comparison: 09/06/2019 Screening Mammogram, Unknown. 09/19/2019 Screening Mammogram, Unknown. 12/11/2019 Screening Mammogram, Unknown. 08/19/2020 Bilateral Diagnostic Mammogram, [facility]. 02/26/2021 Left Diagnostic Mammogram, [facility]. 09/01/2021 Bilateral MG 3D diag mammo w/cad JUAN PABLO, [facility]. 03/01/2022 Left MG 3D diag mammo w/cad LT, [facility]. 08/30/2022 Bilateral MG 3D diag mammo w/cad JUAN PABLO, [facility]. 09/06/2023 Bilateral MG 3D diag mammo w/cad JUAN PABLO, [facility]. Tissue Density: There are scattered areas of fibroglandular density. Findings: Analyzed By CAD. Persistent distortion along with dystrophic calcifications consistent with posttreatment changes left breast. No suspicious new mass or worrisome group of microcalcification in either breast. Overall Assessment: Benign, BI-RAD 2 Management: Screening Mammogram of both breasts in 1 year. . Results were given to the patient verbally at the time of exam. Patient should continue monthly self-breast exams. A clinical breast exam by your physician is recommended on an annual basis. This exam should not preclude additional follow-up of suspicious palpable abnormalities. Note on Soumya scores and lifetime risk: 1. A Soumya score greater than 3% is considered moderate risk. If this is the case, consider specialist referral to assess eligibility for a risk reducing agent. 2. If overall lifetime risk for the development of breast cancer is 20% or higher, the patient may qualify for future screening with alternating mammogram and breast MRI. [facility], , 09/06/2024 11:13 AM. Electronically signed and approved by: Jb Young M.D.
== END | disposition home or self-care (01) ==
LOC: RADMAMWWP 10:51
PROVIDERS: ATTEND Surgery
DX: R92.323 Mammographic fibroglandular density, bilateral breasts (principal); R92.1 Mammographic calcification found on diagnostic imaging of breast; Z78.0 Asymptomatic menopausal state; Z85.3 Personal history of malignant neoplasm of breast
CPT/HCPCS: 77066; G0279; 77062

== ENCOUNTER → 2024-09-20 | Outpatient (CLI) | payer MEDICARE, BC ==
--- NOTE | 2024-09-20 12:46 | P.PN ---
Subjective Progress Note Date: 09/20/24 Principal diagnosis: DCIS left breast 2019 Principal diagnosis: DCIS left breast 2019 DCIS left breast Terra is a 77 year old white female status post left breast lumpectomy on 12-11-19 for DCIS. She had a SNB which was (-). She completed radiation therapy on 02/16. She was started on Tamoxifen but changed to anastrozole which she is tolerating. Her last bilateral mammogram was on 09-14-24 BIRAD 2 personally reviewed and interpreted She is not complaining of any new lumps masses or nodules in either breast. She does have some intermittent discomfort in the left breast with pressure near the site of the surgery. She has noted between her breast some nodularity which appears to be consistent with a sebaceous cyst. Last year she had some trauma to the right breast after falling with some nodularity which has resolved. note medical oncology 01-20-24 reviewed; continue anastrazole note radiation oncology reviewed 11-10-23 doing well Caffeine: 1 diet coke/day Nicotine: Negative iris-bromine: Rarely Family history: 1. Negative patient: DCIS Hormonal history: Menarche: 13 , 2 miscarriages, first born at 21, breast fed: none menopause: hysterectomy at 39, took ovaries; done for endometriosis BCP: 5 years hormones: estrace for hot flashes in the past, not regularly twice a week; been on this for two years; took hormones after hysterectomy for a year Surgical history: 1. Total abdominal hysterectomy 2.bilateral hip replacement 3. knee replacement, right 4. 5. appyendectomy 6. laminectomy 7. salivary gland on the right removed with stones 8. left bresat lumpectomy and SNB; 12-11-19 9. right knee replacement in October 2019 10. left knee October 2022 Medical history: 1. Rheumatoid arthritis 2. left wrist fracture Social history: Smoking: Negative Alcohol: Negative Drugs: Negative - Constitutional Constitutional: Reports sweats - EENT Eyes: denies blurred vision, denies pain Ears, nose, mouth and throat: Denies headache, Denies sore throat - Breasts Breasts: bilateral: as per HPI - Cardiovascular Cardiovascular: Denies chest pain, Denies shortness of breath - Respiratory Respiratory: Denies cough - Gastrointestinal Gastrointestinal: Denies abdominal pain, Denies diarrhea, Denies nausea, Denies vomiting - Menstruation Menstruation: Reports post hysterectomy - Musculoskeletal Comment: arthritis Arthroscopic surgery left knee for torn meniscus 11/09/2019 - Integumentary Integumentary: Denies pruritus, Denies rash - Neurological Neurological: Denies numbness, Denies weakness - Psychiatric Psychiatric: Denies anxiety, Denies depression - Endocrine Endocrine: Denies fatigue, Denies weight change - Hematologic/Lymphatic Comment: none - Allergic/Immunologic Allergic/Immunologic: Reports as per HPI Objective - Constitutional General appearance: Present: cooperative - EENT Eyes: Present: EOMI ENT: Present: hearing grossly normal - Neck Neck: Present: normal ROM - Respiratory Respiratory: bilateral: CTA - Cardiovascular Rhythm: regular Heart sounds: normal: S1, S2 - Integumentary Integumentary: Present: normal turgor - Musculoskeletal Musculoskeletal: Present: gait normal - Psychiatric Psychiatric: Present: A&O x's 3, appropriate affect, intact judgment & insight - Additional findings Additional findings: Breast Exam: BRA: 36C Inspection: post op and post radiation changes left breast, nodule between the breast probable sebaceous cyst Palpation: Right breast: Multi positional exam fibrocystic changes, no dominant masses or nodules of concern right axilla: no adenopathy of concern left breast: post op changes no lesions of concern left axilla: no adenopathy of concern Assessment and Plan Assessment: Impression: DCIS left breast status post lumpectomy, radiation therapy, patient presently on Arimidex No evidence of recurrent cancer bilateral mammogram 09-06-24 BIRAD [address] Monte 01-20-24 reviewed continue anastrozole note radiation oncology 11-10-23 reviewed, completed treatment on 02-28-20 Soft tissue nodule between breast Plan: Repeat bilateral mammogram August 2025 follow up 6 months for examination Continue anastrozole Continue follow-up with radiation oncology follow up medical oncology Appointment for removal of soft tissue nodule between breast in the office CC: Dr. Kan
[2024-09-20 12:49] VITALS: BP 132/75; PULSE 61; RESP 17; TEMP 97.8
== END ==
LOC: WWCWWP 11:52
PROVIDERS: ATTEND Surgery
DX: D05.12 Intraductal carcinoma in situ of left breast (principal); Z98.890 Other specified postprocedural states; Z92.3 Personal history of irradiation; Z88.2 Allergy status to sulfonamides; Z88.5 Allergy status to narcotic agent